=== PATIENT | female | born 1940 | race Hispanic/Latino ===

== ENCOUNTER 2017-04-16 13:17 | Observation (INO) | payer MEDICARE, OTHER ==
--- NOTE | 2017-04-16 13:34 | ED PDOC ---
Arrival/HPI - General Time Seen by Provider: 04/16/17 13:20 Historian: Patient - History of Present Illness Narrative History of Present Illness (Text): 04/16/17 13:25 A 76 year old female presents to the emergency department complaining of 3 day duration of intermittent chest discomfort. Discomfort is described as a pressure sensation and associated with chest palpitations. Patient notes pain is relieved with nitroglycerin. She denies any fever, chills, or other complaints at this time. Patient mentions she had a stress test 2 months ago, which was worse compared to her previous one. Time/Duration: Other (3 days) Symptom Onset: Sudden Symptom Course: Intermittent Quality: Other Activities at Onset: Rest Context: Home Past Medical History - Provider Review Nursing Documentation Reviewed: Yes - Infectious Disease Hx of Infectious Diseases: None - Tetanus Immunization Tetanus Immunization: Unknown - Cardiac Hx Cardiac Disorders: Yes Hx Hypertension: Yes - Pulmonary Hx Respiratory Disorders: Yes Hx Lung Cancer: Yes - Neurological Hx Neurological Disorder: No - HEENT Hx HEENT Disorder: Yes Hx Cataracts: Yes (b/l sx) Hx Glaucoma: (pt denies) - Renal Hx Renal Disorder: No - Endocrine/Metabolic Hx Endocrine Disorders: No - Hematological/Oncological Hx Blood Disorders: Yes Hx Cancer: Yes (non hodgkins lymphoma, spleen, L lung) Other/Comment: pt dx with ca spleen, spleen removed dx with non hodkins lymphoma 2009, also had lymphoma removed from left neck, pt pt had chemo and completed it in january 2012, pt dx with ca left lung 2014, to sx's to left lower lobe one in 2014 and one 06/21/2016 at [facility] - Integumentary Hx Dermatological Disorder: No - Musculoskeletal/Rheumatological Hx Falls: No - Gastrointestinal Hx Gastrointestinal Disorders: Yes (esophageal disorder) Hx Gastroesophageal Reflux: Yes - Genitourinary/Gynecological Hx Reproductive Disorders: Yes (hx hyst) - Psychiatric Hx Substance Use: No - Past Surgical History Past Surgical History: No Previous - Surgical History Hx Cardiac Catheterization: Yes Hx Coronary Stent: Yes (x2) Hx Orthopedic Surgery: Yes (right shoulder rotator cuff) Other/Comment: partial lobectomy left lung 2014 and june 2016 at [facility], spleen removed 2009 pt found to have non hodgkins lymphoma, also had sx to removed lymphoma from left neck, completed chemo january 2012, b/l carpal tunnel sx - Anesthesia Hx Anesthesia Reactions: No Hx Malignant Hyperthermia: No - Suicidal Assessment Feels Threatened In Home Enviroment: No Family/Social History - Physician Review Nursing Documentation Reviewed: Yes Family/Social History: Unknown Family HX Smoking Status: Former Smoker Hx Alcohol Use: No Hx Substance Use: No Hx Substance Use Treatment: No Allergies/Home Meds Allergies/Adverse Reactions: Allergies clopidogrel Allergy (Severe, Verified 09/05/16 02:34) RASH Home Medications: Home Meds Medication Instructions Recorded Confirmed Metoprolol Tartrate 25 mg PO BID 06/16/13 09/12/16 Aspirin [Aspirin Chewable] 81 mg PO BID 06/30/16 09/12/16 Docusate [Colace] 100 mg PO BID 06/30/16 09/12/16 Topiramate [Topiramate] 25 mg PO HS 06/30/16 09/04/16 Tramadol HCl [Tramadol HCl] 50 mg PO Q6 PRN 06/30/16 09/12/16 Zolpidem [Ambien] 10 mg PO HS PRN 06/30/16 09/04/16 Lansoprazole [Lansoprazole] 30 mg PO DAILY 08/29/16 09/04/16 Rosuvastatin Calcium [Crestor] 5 mg PO HS 08/29/16 09/04/16 Enoxaparin [Lovenox] 60 mg SQ BID 09/12/16 09/12/16 Physical Exam - Physical Exam Narrative Physical Exam (Text): - Review of Systems Constitutional: Normal. absent: Fatigue, Weight Change, Fevers Eyes: Normal ENT: Normal Respiratory: Normal absent: SOB, Cough, Sputum Cardiovascular: Chest pain. Chest palpitations. absent: Palpitations, Syncope Gastrointestinal: Normal absent: Abdominal pain, Diarrhea, Nausea, Vomiting Genitourinary: Normal. absent: Dysuria, Frequency, Hematuria Musculoskeletal: Normal. absent: Arthralgias, Back Pain, Neck Pain Skin: Normal Neurological: Normal absent: Focal Weakness Endocrine: Normal Hemo/Lymphatic: Normal Psychiatric: Normal - Physical exam Patient appears age appropriate, speaking full sentences without difficulty - Systems Exam Head: Present: Atraumatic, Normocephalic Pupils: Present: PERRL Extraocular Muscles: Present: EOMI Conjunctiva: Present: Normal Mouth: Present: Moist Mucous Membranes Neck: Present: Normal Range of Motion. No: MIDLINE TENDERNESS, Paraspinal Tenderness Respiratory/Chest: Present: Clear to Auscultation, Good Air Exchange. No: Respiratory Distress, Accessory Muscle Use, Tachypneic Cardiovascular: Present: Regular Rate and Rhythm, Normal S1, S2, Peripheral Pulses Present. No: Murmurs Abdomen: Present: Normal Bowel Sounds, No: Tenderness, Peritoneal Signs, Rebound, Guarding, Distention Back: Present: Normal Inspection. No: Midline Tenderness, Paraspinal Tenderness Upper Extremity: Present: Normal Inspection. No: Cyanosis, Edema Lower Extremity: Present: Normal Inspection. No: Edema Neurological: Present: GCS=15, Speech Normal, cranial nerves II through XII fully intact with no cerebellar abnormality, neuro-sensory fully intact. No focal neurological deficits. Skin: Present: Warm, Dry, Normal Color. No: Rashes Lymphatic: Present: OX3, NI, NC Psychiatric: Present: Alert, Oriented x 3, Normal Insight, Normal Concentration Vital Signs Reviewed: Yes Vital Signs Temp Pulse Pulse Resp BP BP Pulse Ox 04/16/17 16:01 59 L 18 140/86 99 04/16/17 14:21 58 L 18 148/65 98 04/16/17 13:37 59 L 152/62 H 04/16/17 13:34 98.4 F 59 L 18 152/62 H 97 Medical Decision Making ED Course and Treatment: 04/16/17 13:25 Impression: A 76 year old female with chest discomfort. Denies sob/celaya. Patient had a stress test 2 months ago, which was worse compared to her prior one. Physical exam reveals no acute findings. Differential Diagnosis include but are not limited to: ACS Plan: -- EKG -- Chest X-ray -- Labs -- Aspirin -- Reassess and disposition Progress Notes: EKG: Ordered, reviewed, and independently interpreted the EKG. Rate : 60 BPM Rhythm : NSR Interpretation : No ST-segment elevations, normal intervals. Interpreted by me. 04/16/17 14:[address] Mccarty, agrees with above plan notes pt had a pleuritic component to her cp. d-dimer ordered pt states she currently has no chest pain. 04/16/17 16:24 elias Mccarty, saw pt in the ER, agrees with admission to the hospital pt aware of and agrees with plan Chest xray interpreted by ED physician shows no pneumothorax, no cardiomegaly, no infiltrates - Lab Interpretations Lab Results: 04/16/17 13:45 04/16/17 13:45 Lab Results 04/16/17 13:45: Sodium 139, Potassium 4.3, Chloride 102, Carbon Dioxide 27, Anion Gap 14, BUN 18, Creatinine 0.9, Est GFR ( Amer) > 60, Est GFR (Non- Af Amer) > 60, Random Glucose 94, Calcium 9.4, Total Bilirubin 0.5, AST 26, ALT 35, Alkaline Phosphatase 77, Lactate Dehydrogenase 391, Total Creatine Kinase 38 , Troponin I < 0.01 D, NT-Pro-B Natriuret Pep 399, Total Protein 7.3, Albumin 4.4, Globulin 3.0, Albumin/Globulin Ratio 1.5 04/16/17 13:45: PT 15.2 H, INR 1.41 H, APTT 37.8 H, D-Dimer, Quantitative 0.19 04/16/17 13:45: WBC 7.8, RBC 4.63, Hgb 14.7, Hct 43.6, MCV 94.2, MCH 31.7, MCHC 33.7, RDW 13.9, Plt Count 305, MPV 10.7, Gran % 50.6, Lymph % (Auto) 34.6, [place] % (Auto) 9.0 H, Eos % (Auto) 5.2 H, Baso % (Auto) 0.6, Gran # 3.92, Lymph # 2.7 , [place] # 0.7 H, Eos # 0.4, Baso # 0.05 I have reviewed the lab results: Yes - RAD Interpretation Radiology Orders: 04/16/17 13:26 CHEST PORTABLE [RAD] Stat - Medication Orders Current Medication Orders: Discontinued Medications Aspirin (Aspirin Chewable) 324 mg PO STAT STA Stop: 04/16/17 13:27 Last Admin: 04/16/17 13:56 Dose: 324 mg Ketorolac Tromethamine (Toradol) 15 mg IVP STAT STA Stop: 04/16/17 15:26 Last Admin: 04/16/17 16:05 Dose: 15 mg Nitroglycerin (Nitrostat Sl Tab) 0.3 mg SL STAT STA Stop: 04/16/17 15:11 Last Admin: 04/16/17 15:33 Dose: 0.3 mg Ondansetron HCl (Zofran Inj) 4 mg IVP STAT STA Stop: 04/16/17 15:26 Last Admin: 04/16/17 16:05 Dose: 4 mg - Scribe Statement The provider has reviewed the documentation as recorded by the Cesar Kyle Provider Tundeibe Attestation: All medical record entries made by the Scribe were at my direction and personally dictated by me. I have reviewed the chart and agree that the record accurately reflects my personal performance of the history, physical exam, medical decision making, and the department course for this patient. I have also personally directed, reviewed, and agree with the discharge instructions and disposition. Disposition/Present on Arrival - Present on Arrival Any Indicators Present on Arrival: No History of DVT/PE: No History of Uncontrolled Diabetes: No Urinary Catheter: No History Surgical Site Infection Following: None - Disposition Have Diagnosis and Disposition been Completed?: Yes Diagnosis: Chest pain Disposition: HOSPITALIZED Disposition Time: 16:28 Patient Plan: Observation Condition: FAIR Discharge Instructions (ExitCare): Chest Pain (ED) Referrals: Marysol Mccarty MD [Primary Care Provider] - Follow up with primary
[2017-04-16 13:35] VITALS: BMI 30.7
[2017-04-16 13:57] LABS: ADD MANUAL DIFF? NO
[2017-04-16 14:03] LABS: BASO # 0.05 K/mm3 (0.0-2.0); BASO % 0.6 % (0.0-3.0); EOS # 0.4 (0.0-0.7); EOS % 5.2 % (1.5-5.0); GRAN # 3.92 (1.4-6.5); GRAN % 50.6 % (50.0-68.0); HEMATOCRIT 43.6 % (36.0-48.0); LYMPH # 2.7 (1.2-3.4); LYMPH % 34.6 % (22.0-35.0); MEAN CELL VOLUME 94.2 fL (80.0-105.0); MEAN CORPUSCULAR HEMOGLOBIN 31.7 pg (25.0-35.0); MEAN CORPUSCULAR HGB CONC 33.7 g/dl (31.0-37.0); MEAN PLATELET VOLUME 10.7 fl (7.0-11.0); MONO # 0.7 (0.1-0.6); PLATELET COUNT 305 10^3/uL (120.0-450.0); RED CELL DISTRIBUTION WIDTH 13.9 % (11.5-14.5); WHITE BLOOD COUNT 7.8 10^3/ul (4.5-11.0)
[2017-04-16 14:14] LABS: ALB/GLOB RATIO 1.5 (1.1-1.8); ALKALINE PHOSPHATASE 77 U/L (38-133); ALT/SGPT 35 U/L (7-56); AST/SGOT 26 U/L (15-39); BILIRUBIN,TOTAL 0.5 mg/dL (0.2-1.3); BLOOD UREA NITROGEN 18 mg/dL (7-21); CALCIUM 9.4 mg/dL (8.4-10.5); CARBON DIOXIDE 27 mmol/L (21-33); CHLORIDE 102 mmol/L (98-107); GFR AFRICAN-AMERICAN > 60; GLUCOSE,RANDOM 94 mg/dL (70-110); POTASSIUM 4.3 mmol/L (3.6-5.0); SODIUM 139 mmol/L (132-148); TOTAL PROTEIN 7.3 g/dL (5.8-8.3)
[2017-04-16 14:24] LABS: TROPONIN I < 0.01 ng/mL
--- NOTE | 2017-04-16 14:53 | RAD ---
HISTORY: Cough COMPARISON: 08/29/2016. FINDINGS: LUNGS: The lungs are hyperinflated and there is peribronchial thickening with chronic changes in both lungs. There is no lobar pneumonia. PLEURA: No significant pleural effusion identified, no pneumothorax apparent. CARDIOVASCULAR: Normal. OSSEOUS STRUCTURES: There is a screw in the right humeral head. VISUALIZED UPPER ABDOMEN: Normal. OTHER FINDINGS: None. IMPRESSION: No active pulmonary disease. COPD.
[2017-04-16 15:04] LABS: D DIMER 0.19 mg/L FEU (0-0.50); INR 1.41 (0.93-1.08); PARTIAL THROMBOPLASTIN TIME 37.8 Seconds (23.7-30.8)
--- NOTE | 2017-04-16 15:23 | CARD ---
APPROVED REPORT EKG Measurement Heart [id number] <Conclusion> Sinus bradycardia Small q waves 2,3,F.
--- NOTE | 2017-04-16 18:36 | HP ---
HISTORY OF PRESENT ILLNESS: A 76-year-old female presented today with the complaints of left-sided c hest pain. She states that the chest pain has been occurring off and on for several days, starting o n Sunday, during which time it was relieved with nitroglycerin, but however, was associated with cold , clammy sweats. She also states that there seemed to be an inspiratory component to the pain as wel l. She denied any fever, chills, nausea or vomiting. ALLERGIES: PLAVIX. HOME MEDICATIONS: Xarelto 20 mg daily, Ambien 10 mg at bedtime p.r.n., tramadol 50 mg q. 6 hours p.r .n., Crestor 5 mg daily, metoprolol 25 mg b.i.d., lansoprazole 30 mg daily and Colace 100 mg b.i.d. SOCIAL HISTORY: She is a nonsmoker, nondrinker, nondrug user. PAST MEDICAL HISTORY: 1. Recent abnormal stress test within the last several months as per the patient. 2. History of lung cancer with partial lobectomy surgeries in the last 2 years. 3. History of pulmonary embolus. 4. History of lumbar disk disease. 5. History of gastritis. 6. History of lymphoma. 7. History of splenectomy. 8. History of hyperlipidemia. PHYSICAL EXAMINATION: GENERAL: The patient was referred to [facility] for further evaluation. VITAL SIGNS: She has a temp of 98.4, her pulse is 59, her blood pressure is 148/65, respiratory rate is 18, oxygen saturation is reported at 98% on room air. NECK: Supple, no JVD. LUNGS: Clear. HEART: Has an S1, S2 rhythm. ABDOMEN: Soft with positive bowel sounds. EXTREMITIES: Show no evidence of edema or rash. No point tenderness to palpation of the chest wall. EXTREMITIES: Show no evidence of edema. NEUROLOGIC: She is alert and oriented x 3. LABORATORY DATA: Electrolytes are normal. Her BUN is 18 and creatinine is 0.9. LFTs are normal. F irst troponin is less than 0.01. PT is 15.2, INR 1.41. PTT is 3.78 and D-dimer is 0.19. CBC shows a WBC of 7.8, RBC 4.63, hemoglobin 14.7, hematocrit 43.6, platelet count 305. MEDICATIONS GIVEN: The patient received aspirin in the Emergency Room along with nitroglycerin and T oradol dose and Zofran. REPORTS: EKG is being read by the cost estimator as showing sinus mariusz with Q waves in leads III and III and aVF. The chest x-ray is read as no active disease. IMPRESSION: A 76-year-old female with: 1. Chest pain. 2. History of abnormal stress test. 3. History of coronary artery disease. One must rule out ischemic cardiac disease. 4. The patient with history of lung cancer status post surgical procedures on lungs x 2 with history of pulmonary embolus. 5. History of chronic degenerative cervical and lumbar disease. 6. History of gastritis. 7. History of foot fracture surgery remotely. PLAN: The patient has been advised that it would be beneficial for her to be evaluated by cardiology and be admitted into the hospital. This was discussed at length with the Emergency Room staff and t he patient herself. Requests have been made for consult to be had with cardiology and with pulmonary . She will be placed on a heart healthy diet with serial cardiac enzymes to be monitored on telemetry . Marysol Mccarty MD cc: [id number] TT: 04/16/2017 18:35:59 ln
[2017-04-16 19:33] LABS: TROPONIN I < 0.01 ng/mL
[2017-04-16 22:47] VITALS: RESP 20
[2017-04-17 03:30] LABS: TROPONIN I < 0.01 ng/mL
[2017-04-17 05:51] VITALS: O2SAT 100
[2017-04-17] MEDS ORDERED: Pantoprazole 40 mg EC Tab PO SCH (07:30)
--- NOTE | 2017-04-17 07:39 | CON ---
DATE: 04/17/2017 REASON FOR CONSULTATION: Chest pain. REFERRING PHYSICIAN: Dr. Mccarty The patient is a 76-year-old female with past medical history significant for pulmonary embolism (08/2016), history of lung cancer, history of multiple left lung surgeries, history of non-Hodgkin's lymphoma, who presents to [facility] with intermittent chest discomfort for the past 3 days. The patient describes the chest discomfort -- sometimes in the left chest, sometimes in the midsternal area. She does state that the chest discomfort is significantly decreased this morning. There is no history of shortness of breath at rest, dyspnea on exertion, cough, or sputum production. There is no history of coughing up of blood. Interesting to note, is that the patient is able to reproduce some of the pain with deep palpation in the midsternal area. There is no history of chest pain -- made worse with deep respirations. There is no history of temperatures, chills or infectious exposure. There is no history of night sweats, weight loss or appetite change prior to the above events. No history of leg or calf pains. No history of syncope or diaphoresis. No history of recent travel or trauma. REVIEW OF SYSTEMS: No history of nausea, vomiting or diarrhea. No acute urinary symptoms. No new neurological or musculoskeletal complaints. Rest is negative. ALLERGIES: CLOPIDOGREL. SOCIAL HISTORY: Negative for tobacco, negative for alcohol. FAMILY HISTORY: No inheritable diseases. HOME MEDICATIONS: Include Xarelto, Ambien, tramadol, Crestor, metoprolol, lansoprazole, Colace. PHYSICAL EXAMINATION: GENERAL: The patient appears comfortable this morning. She is not short of breath at rest. VITAL SIGNS: Temperature is 97.8, pulse 65, respirations 18, blood pressure 158 /84. Oxygen saturation on room air is 100%. HEENT: Normocephalic, atraumatic. No JVD. CARDIOVASCULAR: Positive S1, S2. No S3. LUNGS: Clear bilaterally. EXTREMITIES: Mild edema. No cyanosis, no clubbing. Calves are nontender to palpation. GASTROINTESTINAL: Abdomen is soft, nontender, nondistended. Bowel sounds are positive. SKIN: No acute rash. NEUROLOGIC: Limited at the present time. PERTINENT LABORATORY DATA: Chest x-ray was done yesterday and reviewed. There are no acute changes seen. CBC: White count 7.8, hemoglobin 14.7, hematocrit 43.6, platelets of 305. D-dimer -- negative -- 0.19. Complete metabolic profile -- including troponins x 3 -- are completely within normal limits. IMPRESSION: 1. Chest discomfort -- rule out musculoskeletal origin. 2. History of pulmonary embolism. 3. History of lung cancer. 4. History of non-Hodgkin's lymphoma. PLAN: The patient presents to [facility] with main complaint of intermittent chest discomfort for the past 3 days. She offers no other significant pulmonary symptoms. Again, interesting to note, the patient can reproduce the chest discomfort with deep palpation in the sternal area. I do question whether the chest discomfort is musculoskeletal in origin. Cardiology evaluation with Dr. Douglas has been ordered. I did review the chest x-ray as above. There is no active disease present. I have also reviewed the laboratory data. The laboratory data is unrevealing -- including a negative D- dimer. On physical exam, the patient's lungs are clear. Oxygen saturation on room air is 100%. The patient is currently on Xarelto for a previous pulmonary embolism. As above, the patient does feel much better this morning -- with a significant decrease in her chest discomfort. She is clinically improved. Additional pulmonary intervention will be based on the clinical status of the patient. I will discuss the above with Dr. Mccarty. Thank you very much for this pulmonary consultation. Dayday Hall MD cc: [phone] TT: 04/17/2017 07:39:00 Confirmation # [id number] Dictation # [id number] en MTDD
--- NOTE | 2017-04-17 09:08 | CON ---
DATE: 04/17/2017 INDICATIONS: Chest pain. This is a 76-year-old woman admitted with several days of chest pain. She came to the Emergency Room yesterday and was seen by Dr. Mccarty and the ER physician. She described a pinching type left upper chest discomfort which occurred at rest. There was some pleuritic component to her chest pain. There was no associated shortness of breath or diaphoresis. It was not exertional chest pain. It was not similar to chest pain that she had in relation to coronary artery disease and prior coronary intervention. She did have some relief from nitroglycerin over the course of the last several days. There was no orthopnea, PND, syncope, presyncope, lightheadedness, dizziness, vertigo, palpitation, edema, claudication, fever, rigor, cough, sputum production, hemoptysis, abdominal pain, nausea, vomiting, diarrhea, constipation, or melena. PAST MEDICAL HISTORY: Complex. She has known coronary artery disease and underwent coronary intervention remotely. More recently, she had a nuclear stress test in our office, which was apparently abnormal. She is not quite sure of the exact recommendations based on that stress test at this time. She has a history of pulmonary embolus in 08/2016. There is a history of lung cancer with resections. She is a former smoker. She has had a splenectomy, partial pancreatectomy, total abdominal hysterectomy with bilateral salpingo- oophorectomy and right shoulder surgery. She has a history of Hodgkin's lymphoma, osteoporosis, spinal stenosis, osteoarthritis, glaucoma and compression fractures. MEDICATIONS: At the time of admission include Xarelto, Ambien, tramadol, Crestor, metoprolol, lansoprazole, Colace. ALLERGIES: SHE NOTES AN ALLERGY TO PLAVIX. She is a former smoker. She does not drink alcohol. She lives at home. She is ambulatory. FAMILY HISTORY: Positive for atherosclerotic cardiovascular disease. REVIEW OF SYSTEMS: A 10-point is otherwise unremarkable except as noted above. PHYSICAL EXAMINATION: GENERAL: She is a well-developed, elderly woman, sitting on her bed in telemetry, in no acute distress. VITAL SIGNS: Unremarkable. She is in sinus rhythm. She is afebrile. Her blood pressure is 150/79, respirations 18-20, O2 sat 99% on room air. HEENT: Reveals no neck vein distention, thyromegaly, or carotid bruits. Mucous membranes moist. Conjunctivae pink. NECK: Supple. LUNG ALVA: Clear. HEART: Revealed normal first and second heart sounds. No murmur, gallop, rub or click. ABDOMEN: Soft. Bowel sounds were present. No mass, organomegaly, tenderness, rebound, or guarding. No CVA tenderness. No palpable abdominal aortic aneurysm. EXTREMITIES: Revealed no cyanosis, clubbing, or edema. NEUROLOGIC: She is awake, alert and oriented. PSYCHIATRIC: Normal as to mood and affect. SKIN: Warm and dry. No rash or cellulitis. LABORATORY AND IMAGING: A chest x-ray is a portable study. It reveals no active pulmonary disease and COPD. The EKG demonstrates regular sinus rhythm at 59 beats per minute, small inferior Q-waves, no change from prior EKG. White count unremarkable. PT 15.2, INR 1.41, PTT 37.8. D-dimer 0.19. Electrolytes, BUN, creatinine, blood sugar, LFTs all unremarkable. Three cardiac enzymes are negative. BNP 399. IMPRESSION: The patient is a 76-year-old woman with known coronary artery disease, a former smoker with a history of coronary intervention remotely, a history of pulmonary embolus in 08/2016, who was admitted with atypical chest pains at rest predominantly with a pleuritic component, but sometimes responding to sublingual nitroglycerin over the course of the last few days. At this time, she is admitted to telemetry. There is no evidence of acute myocardial infarction by serial enzymes. I will repeat her EKG this morning. I will order an echocardiogram. She is having a pulmonary evaluation. I will discuss her most recent stress test, which was apparently unremarkable, with Dr. Garcia, who follows with her in the office. If chest pain continues and no other cause is defined and her stress test is ischemic, consideration will be given to cardiac catheterization to define her current coronary anatomy, although her symptoms are atypical. In the meantime, I will order an echocardiogram. She can be out of bed. We will continue her medications including aspirin, Lipitor, metoprolol, Protonix, Xarelto. She is having a pulmonary consultation. I will follow along with you. I will make additional recommendations based on her clinical course. Alejandro Douglas MD cc: [phone] TT: 04/17/2017 09:07:16 Confirmation # [id number] Dictation # [id number] en MTDD
[2017-04-17] MEDS ORDERED: POLYETHYLENE GLYCOL 3350 17 GM/Dose PACKET PO SCH (10:00)
--- NOTE | 2017-04-17 10:19 | CARD ---
APPROVED REPORT EKG Measurement Heart [id number] <Conclusion> Normal sinus rhythm Small q wves 2,3,F No change
[2017-04-17 12:40] VITALS: BP 165/79; PULSE 59; TEMP 98.1
[2017-04-17 13:10] LABS: TROPONIN I < 0.01 ng/mL
--- NOTE | 2017-04-17 16:27 | CARD ---
APPROVED REPORT EXAM: Two-dimensional and M-mode echocardiogram with Doppler and color Doppler. INDICATION Chest Pain 2D DIMENSIONS Left Atrium (2D)3.4 (1.6-4.0cm)IVSd1.2 (0.7-1.1cm) LVDd3.7 (3.9-5.9cm)PWd1.1 (0.7-1.1cm) LVDs2.5 (2.5-4.0cm)FS (%) 32.6 % LVEF (%)61.9 (>50%) M-Mode DIMENSIONS Aortic Root3.10 (2.2-3.7cm)Aortic Cusp Exc.1.50 (1.5-2.0cm) Aortic Valve AoV Peak Xwllneut417.0cm/Son Peak GR.7mmHg Mitral Valve MV E Whotxqvl98.2cm/sMV A Zqkdmyqv928.0cm/sE/A ratio0.6 TDI E/Lateral E'0.0E/Medial E'0.0 Tricuspid Valve TR Peak Nysexrbh558ei/sRAP [id number] Peak Gr.22mmHg [id number] LEFT VENTRICLE The left ventricle is normal size. There is mild concentric left ventricular hypertrophy. The left ventricular function is normal. The left ventricular ejection fraction is within the normal range. There is normal LV segmental wall motion. RIGHT VENTRICLE The right ventricle is normal size. The right ventricular systolic function is normal. ATRIA The left atrium size is normal. The right atrium size is normal. The interatrial septum is intact with no evidence for an atrial septal defect. AORTIC VALVE The aortic valve is normal in structure. No aortic regurgitation is present. There is no aortic valvular stenosis. MITRAL VALVE The mitral valve is normal in structure. Mitral regurgitation is mild. TRICUSPID VALVE The tricuspid valve is normal in structure. There is mild tricuspid regurgitation. PULMONIC VALVE The pulmonary valve is normal in structure. GREAT VESSELS The aortic root is normal in size. The IVC is normal in size and collapses >50% with inspiration. PERICARDIAL EFFUSION There is no pleural effusion. There is no pericardial effusion. <Conclusion> Normal chamber size. Normal LV systolic function. Mild concentric LVH. Midl MR and TR.
== END 2017-04-17 14:56 | disposition home or self-care (01) ==
LOC: ED 13:17 → ERH 16:28 → 2RNO 19:05
PROVIDERS: ADMIT Internal Medicine; ATTEND Internal Medicine
DX: R07.9 Chest pain, unspecified (principal); I25.10 Atherosclerotic heart disease of native coronary artery without angina pectoris; Z85.118 Personal history of other malignant neoplasm of bronchus and lung; Z86.711 Personal history of pulmonary embolism; Z79.01 Long term (current) use of anticoagulants; Z85.72 Personal history of non-Hodgkin lymphomas; M81.0 Age-related osteoporosis without current pathological fracture; H40.9 Unspecified glaucoma; M48.00 Spinal stenosis, site unspecified; M19.90 Unspecified osteoarthritis, unspecified site; E78.5 Hyperlipidemia, unspecified; K29.70 Gastritis, unspecified, without bleeding; Z95.5 Presence of coronary angioplasty implant and graft; Z90.81 Acquired absence of spleen; Z87.891 Personal history of nicotine dependence; Z90.710 Acquired absence of both cervix and uterus; Z82.49 Family history of ischemic heart disease and other diseases of the circulatory system
CPT/HCPCS: 36415; 71010; 80053; 82550; 83615; 83880; 84484; 85025; 85378; 85610; 85730; 93005; 93306; 96374; 96375; 99283; G0378; J1885; J2405

== ENCOUNTER 2017-11-23 15:11 | Emergency (ER) | payer MEDICARE, OTHER ==
--- NOTE | 2017-11-23 15:33 | ED PDOC ---
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 facial swelling and dental pain started last night with no fall or trauma. Aching pain, associated with the rt. sided facial swelling, no fever or chills, no difficulty swallowing , no drooling, no night sweat, no rash, no difficulty turning the neck, no other medical or psychological complaints. Past Medical History - Provider Review Nursing Documentation Reviewed: Yes - Infectious Disease Hx of Infectious Diseases: None - Tetanus Immunization Tetanus Immunization: Unknown - Cardiac Hx Cardiac Disorders: Yes Hx Hypertension: Yes - Pulmonary Hx Respiratory Disorders: Yes Hx Chronic Obstructive Pulmonary Disease (COPD): Yes Hx Pneumonia: Yes - Neurological Hx Neurological Disorder: Yes Hx Migraine: Yes Hx Transient Ischemic Attacks (TIA): Yes - HEENT Hx HEENT Disorder: Yes Hx Cataracts: Yes (b/l sx) Hx Glaucoma: Yes - Renal Hx Renal Disorder: No Other/Comment: polycystic kidney disease - Endocrine/Metabolic Hx Endocrine Disorders: No - Hematological/Oncological Hx Blood Disorders: Yes Hx Cancer: Yes (non hodgkins lymphoma, spleen, L lung) Hx Chemotherapy: Yes Other/Comment: PE, pt dx with ca spleen, spleen removed dx with non hodkins lymphoma, pt dx with ca left lung, two sx's to left lower lobe - Integumentary Hx Dermatological Disorder: No - Musculoskeletal/Rheumatological Hx Musculoskeletal Disorders: Yes Hx Arthritis: Yes Hx Back Pain: Yes Hx Falls: No Hx Spinal Stenosis: Yes Hx Unsteady Gait: Yes - Gastrointestinal Hx Gastrointestinal Disorders: Yes Hx Gastroesophageal Reflux: Yes Other/Comment: "esophageal problems," GI bleed - Genitourinary/Gynecological Hx Genitourinary Disorders: Yes Hx Urinary Tract Infection: Yes - Psychiatric Hx Psychophysiologic Disorder: Yes Hx Anxiety: Yes Hx Substance Use: No - Past Surgical History Past Surgical History: No Previous - Surgical History Hx Cardiac Catheterization: Yes Hx Coronary Stent: Yes (x2) Hx Hysterectomy: Yes Hx Orthopedic Surgery: Yes (right shoulder rotator cuff, R ankle) Hx Splenectomy: Yes Other/Comment: partial lobectomy left lung - Anesthesia Hx Anesthesia Reactions: No Hx Malignant Hyperthermia: No - Suicidal Assessment Feels Threatened In Home Enviroment: No Family/Social History - Physician Review Nursing Documentation Reviewed: Yes Family/Social History: Unknown Family HX Smoking Status: Never Smoked Hx Alcohol Use: No Hx Substance Use: No Hx Substance Use Treatment: No Allergies/Home Meds Allergies/Adverse Reactions: Allergies clopidogrel Allergy (Severe, Verified 09/05/16 02:34) RASH Home Medications: Home Meds Medication Instructions Recorded Confirmed Metoprolol Tartrate 25 mg PO BID 06/16/13 04/16/17 Docusate [Colace] 100 mg PO BID 06/30/16 04/16/17 Tramadol HCl 50 mg PO Q6 PRN 06/30/16 04/16/17 Zolpidem [Ambien] 10 mg PO HS PRN 06/30/16 04/16/17 Lansoprazole 30 mg PO DAILY 08/29/16 04/16/17 Rosuvastatin Calcium [Crestor] 5 mg PO HS 08/29/16 04/16/17 Rivaroxaban [Xarelto] 20 mg PO DAILY 04/16/17 04/16/17 Review of Systems - Review of Systems Constitutional: absent: Fatigue, Fevers Eyes: absent: Vision Changes ENT: Other (dental pain and facial swelling). absent: Hearing Changes Respiratory: absent: SOB, Cough Cardiovascular: absent: Chest Pain Gastrointestinal: absent: Abdominal Pain, Diarrhea, Nausea, Vomiting Musculoskeletal: absent: Arthralgias Neurological: absent: Headache, Dizziness Psychiatric: absent: Anxiety, Depression Physical Exam Vital Signs Temp Pulse Resp BP Pulse Ox 11/23/17 17:07 79 18 148/79 99 11/23/17 15:43 98.0 F 86 18 153/87 H 99 Appearance: Positive for: Well-Appearing, Non-Toxic, Comfortable Pain Distress: Moderate - Systems Exam Head: Present: Atraumatic, Normocephalic Pupils: Present: PERRL Extroacular Muscles: Present: EOMI Conjunctiva: Present: Normal Ears: Present: NORMAL TM, Normal Canal. No: Erythema Mouth: Present: Moist Mucous Membranes, Normal Lips, Normal Tounge, Other ( visible multiple dental caries noted on the rt. upper and lower molar region, no gingivitis or gingival abscess, there is no facial cellulitis or erythematous. ). No: Drooling Neck: Present: Normal Range of Motion, Lymphadenopathy (rt. anterior cervical lymphenapathy), Trachea Midline. No: Meningeal Signs, MIDLINE TENDERNESS, Paraspinal Tenderness Respiratory/Chest: Present: Clear to Auscultation, Good Air Exchange. No: Respiratory Distress, Accessory Muscle Use, Wheezes, Decreased Breath Sounds, Tender to Palpation Cardiovascular: Present: Regular Rate and Rhythm, Normal S1, S2. No: Murmurs Abdomen: Present: Normal Bowel Sounds. No: Tenderness, Distention, Peritoneal Signs Back: Present: Normal Inspection Upper Extremity: Present: Normal Inspection. No: Cyanosis, Edema Lower Extremity: Present: Normal Inspection. No: Edema Neurological: Present: GCS=15, Speech Normal, Motor Func Grossly Intact, Gait Normal, Memory Normal Skin: Present: Warm, Dry, Normal Color. No: Rashes Psychiatric: Present: Alert, Oriented x 3, Normal Insight, Normal Concentration Medical Decision Making ED Course and Treatment: 11/23/17 15:37 -labs -CT facial -IV clindamycin/morphine/zofran -observe and reassess 11/23/17 19:02 -Labs are non-significant except wbc 11.9, afebrile, no facial cellulitis or erythematous. -CT facial show Findings consistent with localized cellulitis and possibly small fluid/abscess collection adjacent to the mandible as the detailed above. . Findings could represent dental origin infection and therefore dental consultation recommended. -I discussed the labs/radiology result with Dr. Mccarty and Dr. Galarza, agreed to be discharged home with outpatient follow up as she has dentist appointment tomorrow 11:15am plus Dr. Mccarty will see her tomorrow. -Pt. request pain med last dose before discharge home. I checked the [facility] report and she has multiple controlled substances, unable to prescribe her, discussed with her. -Discharge home with clindamycin, oral visious lidocaine to swish and spit, tylenol, cold compress, follow up with your own pmd and dentist tomorrow ( dentist 11:15am and Dr. Mccarty after seeing the dentist), return to the ER for any new or worsening signs or symptoms. - Lab Interpretations Lab Results: 11/23/17 16:26 11/23/17 16:26 Lab Results 11/23/17 16:26: WBC 11.9 H, RBC 4.34, Hgb 13.7, Hct 41.2, MCV 94.9, MCH 31.6, MCHC 33.3, RDW 14.8 H, Plt Count 303, MPV 11.5 H, Gran % 48.2 L, Lymph % (Auto) 38.6 H, [place] % (Auto) 10.5 H, Eos % (Auto) 2.4, Baso % (Auto) 0.3, Gran # 5.74, Lymph # 4.6 H, [place] # 1.3 H, Eos # 0.3, Baso # 0.03 11/23/17 16:26: Sodium 139, Potassium 4.7, Chloride 103, Carbon Dioxide 27, Anion Gap 14, BUN 21, Creatinine 0.9, Est GFR ( Amer) > 60, Est GFR (Non- Af Amer) > 60, Random Glucose 99, Calcium 9.5, Magnesium 2.0, Total Bilirubin 0.6, AST 20, ALT 11, Alkaline Phosphatase 80, Total Protein 6.8, Albumin 4.3, Globulin 2.5, Albumin/Globulin Ratio 1.7 I have reviewed the lab results: Yes - RAD Interpretation Radiology Orders: 11/23/17 15:37 MAXILLOFACIAL W/CONTRAST [CT] Stat PROCEDURE: CT scan maxillofacial skeleton dated 11/23/2017 HISTORY: Right-sided facial swelling with dental pain COMPARISON: Comparison made with CT scan neck dated 06/19/2013. Comparison also made with CT scan of the brain dated 08/15/2013. TECHNIQUE: Contiguous helical/transaxial CT images of the maxillofacial bones were obtained following administration of IV contrast. Coronal and sagittal reformats were generated. Intravenous contrast Dose: 100 cc Omnipaque 350 Radiation dose: Total exam DLP = 801.45 mGy-cm. This CT exam was performed using one or more of the following dose reduction techniques: Automated exposure control, adjustment of the mA and/or kV according to patient size, and/or use of iterative reconstruction technique. Examination is somewhat limited due to crossing streak and beam hardening artifact arising from dental amalgam. FINDINGS: The current study reveals infiltration and induration changes within involving the buccal surface soft tissues - gumline adjacent to the body of the mandible extending superiorly into buccal surface tissues adjacent to the maxilla. . . There may be a small (approximately 6.5 x 3 mm) collection -abscess adjacent to the posterior body of the mandible best seen on axial image number [id number] 68. There is a 2nd possible tiny fluid collection slightly more anterior and inferiorly located that (approximately 5 0.4 x 2 mm) seen on axial image number 60 evaluation is somewhat limited due to the aforementioned streak and beam hardening artifact. The findings could be a dental origin abscess. Recommend dental consultation. NASAL BONES: Unremarkable. ORBITS: Changes of bilateral cataract surgery. PARANASAL SINUSES/ MASTOIDS: Mild linear and polypoid like mucosal thickening right maxillary antrum of. Additionally, there is minor mucosal thickening within the ethmoid air complex extending slightly superiorly into the inferior margin of the frontal sinus. MAXILLA: As above MANDIBLE/ TEMPOROMANDIBULAR JOINTS: Intact. SKULL BASE: Unremarkable. TEMPORAL BONES: Partial opacification of the inferior margin of the left mastoid air complex. . Additionally, there also appears to be opacification of a few inferior right mastoid air cells. OTHER FINDINGS: None. IMPRESSION: Findings consistent with localized cellulitis and possibly small fluid/abscess collection adjacent to the mandible as the detailed above. . Findings could represent dental origin infection and therefore dental consultation recommended. Salvage Winder: Radiologist - Medication Orders Current Medication Orders: Sodium Chloride (Sodium Chloride 0.9%) 1,000 mls @ 100 mls/hr IV .Q10H HÉCTOR Last Admin: 11/23/17 15:50 Dose: 100 mls/hr eMAR Start Stop Document 11/23/17 15:50 RD (Rec: 11/23/17 16:51 RD [facility] [id number]) Intravenous Solution Start Date 11/23/17 Start Time 15:50 Oxycodone/Acetaminophen (Percocet 5/325 Mg Tab) 1 tab PO STAT STA Stop: 11/23/17 19:01 Discontinued Medications Clindamycin Phosphate 900 mg/ (Sodium Chloride) 106 mls @ 106 mls/hr IVPB STAT STA PRN Reason: Protocol Stop: 11/23/17 16:37 Last Admin: 11/23/17 17:25 Dose: 106 mls/hr eMAR Start Stop Document 11/23/17 17:25 RD (Rec: 11/23/17 17:25 RD [facility] [id number]) Intravenous Solution Start Date 11/23/17 Start Time 17:25 End Date 11/23/17 End time 17:55 Total Infusion Time 30 Morphine Sulfate (Morphine) 2 mg IVP STAT STA Stop: 11/23/17 15:39 Last Admin: 11/23/17 15:55 Dose: 2 mg [facility] Pain Assessment Document 11/23/17 15:55 RD (Rec: 11/23/17 16:51 RD [place] [id number]) Pain Reassessment Is this a pain reassessment? No Sleep Is patient sleeping during reassessment? No Presence of Pain Presence of Pain Yes IVP Administration Document 11/23/17 15:55 RD (Rec: 11/23/17 16:51 RD [place] [id number]) Charges for Administration # of IVP Administrations 1 Re-Assess: [facility] Pain Assessment Document 11/23/17 16:55 RD (Rec: 11/23/17 17:26 RD [place] [id number]) Pain Reassessment Is this a pain reassessment? Yes Sleep Is patient sleeping during reassessment? No Presence of Pain Presence of Pain No Ondansetron HCl (Zofran Inj) 4 mg IVP STAT STA Stop: 11/23/17 15:39 Last Admin: 11/23/17 15:54 Dose: 4 mg IVP Administration Document 11/23/17 15:54 RD (Rec: 11/23/17 16:51 RD [place] [id number]) Charges for Administration # of IVP Administrations 1 - PA / SHIP SURVEYOR / Resident Statement MD/DO has reviewed & agrees with the documentation as recorded. Disposition/Present on Arrival - Present on Arrival Any Indicators Present on Arrival: No History of DVT/PE: No History of Uncontrolled Diabetes: No Urinary Catheter: No History of Decub. Ulcer: No History Surgical Site Infection Following: None - Disposition Have Diagnosis and Disposition been Completed?: Yes Diagnosis: Pain, dental, Facial swelling Disposition: HOME/ ROUTINE Disposition Time: 19:07 Patient Plan: Discharge Condition: IMPROVED Additional Instructions: -Discharge home with clindamycin, oral visious lidocaine to swish and spit, tylenol, cold compress, follow up with your own pmd and dentist tomorrow ( dentist 11:15am and Dr. Mccarty after seeing the dentist), return to the ER for any new or worsening signs or symptoms. Prescriptions: Acetaminophen [Tylenol 325mg tab] 2 tab PO QID PRN #35 tab PRN Reason: Other Clindamycin [Cleocin] 300 mg PO QID #40 cap Lidocaine 2% Viscous 10 ml MM TID PRN #250 ml PRN Reason: Other Referrals: Marysol Mccarty MD [Primary Care Provider] - Follow up with primary Forms: WORK NOTE
[2017-11-23 15:35] VITALS: BMI 31.1
[2017-11-23] MEDS ORDERED: Morphine 2 mg/ml ISec IVP STA (15:38)
[2017-11-23 15:43] VITALS: RESP 18; TEMP 98; O2SAT 99
[2017-11-23] MEDS ORDERED: Sodium Chloride 0.9% 1,000 ML IV SCH (15:45)
[2017-11-23 16:31] LABS: BASO # 0.03 K/mm3 (0.0-2.0); BASO % 0.3 % (0.0-3.0); EOS # 0.3 (0.0-0.7); EOS % 2.4 % (1.5-5.0); GRAN # 5.74 (1.4-6.5); GRAN % 48.2 % (50.0-68.0); HEMOGLOBIN 13.7 g/dL (12.0-16.0); LYMPH # 4.6 (1.2-3.4); LYMPH % 38.6 % (22.0-35.0); MEAN CELL VOLUME 94.9 fl (80.0-105.0); MEAN CORPUSCULAR HEMOGLOBIN 31.6 pg (25.0-35.0); MEAN CORPUSCULAR HGB CONC 33.3 g/dl (31.0-37.0); MEAN PLATELET VOLUME 11.5 fl (7.0-11.0); MONO # 1.3 (0.1-0.6); MONO % 10.5 % (1.0-6.0); RBC 4.34 10^6/uL (3.5-6.1); RED CELL DISTRIBUTION WIDTH 14.8 % (11.5-14.5); WHITE BLOOD COUNT 11.9 10^3/ul (4.5-11.0)
[2017-11-23 16:58] LABS: ALB/GLOB RATIO 1.7 (1.1-1.8); ALBUMIN 4.3 g/dL (3.0-4.8); ALT/SGPT 11 U/L (7-56); AST/SGOT 20 U/L (14-36); BLOOD UREA NITROGEN 21 mg/dL (7-21); CALCIUM 9.5 mg/dL (8.4-10.5); GFR AFRICAN-AMERICAN > 60; GFR NON-AFRICAN AMERICAN > 60
[2017-11-23 17:07] VITALS: BP 148/79; PULSE 79
[2017-11-23] MEDS ORDERED: Iohexol 350 MG/100 ML VIAL ONE (17:51)
--- NOTE | 2017-11-23 18:38 | CT ---
PROCEDURE: CT scan maxillofacial skeleton dated 11/23/2017 HISTORY: Right-sided facial swelling with dental pain COMPARISON: Comparison made with CT scan neck dated 06/19/2013. Comparison also made with CT scan of the brain dated 08/15/2013. TECHNIQUE: Contiguous helical/transaxial CT images of the maxillofacial bones were obtained following administration of IV contrast. Coronal and sagittal reformats were generated. Intravenous contrast Dose: 100 cc Omnipaque 350 Radiation dose: Total exam DLP = 801.45 mGy-cm. This CT exam was performed using one or more of the following dose reduction techniques: Automated exposure control, adjustment of the mA and/or kV according to patient size, and/or use of iterative reconstruction technique. Examination is somewhat limited due to crossing streak and beam hardening artifact arising from dental amalgam. FINDINGS: The current study reveals infiltration and induration changes within involving the buccal surface soft tissues - gumline adjacent to the body of the mandible extending superiorly into buccal surface tissues adjacent to the maxilla. . . There may be a small (approximately 6.5 x 3 mm) collection -abscess adjacent to the posterior body of the mandible best seen on axial image number [id number] 68. There is a 2nd possible tiny fluid collection slightly more anterior and inferiorly located that (approximately 5 0.4 x 2 mm) seen on axial image number 60 evaluation is somewhat limited due to the aforementioned streak and beam hardening artifact. The findings could be a dental origin abscess. Recommend dental consultation. NASAL BONES: Unremarkable. ORBITS: Changes of bilateral cataract surgery. PARANASAL SINUSES/ MASTOIDS: Mild linear and polypoid like mucosal thickening right maxillary antrum of. Additionally, there is minor mucosal thickening within the ethmoid air complex extending slightly superiorly into the inferior margin of the frontal sinus. MAXILLA: As above MANDIBLE/ TEMPOROMANDIBULAR JOINTS: Intact. SKULL BASE: Unremarkable. TEMPORAL BONES: Partial opacification of the inferior margin of the left mastoid air complex. . Additionally, there also appears to be opacification of a few inferior right mastoid air cells. OTHER FINDINGS: None. IMPRESSION: Findings consistent with localized cellulitis and possibly small fluid/abscess collection adjacent to the mandible as the detailed above. . Findings could represent dental origin infection and therefore dental consultation recommended.
[2017-11-23] MEDS ORDERED: Oxycodone/Acetaminophen 5/325 mg Tab PO STA (19:00)
== END 2017-11-23 19:24 | disposition home or self-care (01) ==
LOC: ED 15:11
DX: K08.89 Other specified disorders of teeth and supporting structures (principal); I10 Essential (primary) hypertension; Z85.72 Personal history of non-Hodgkin lymphomas
CPT/HCPCS: 70488; 80053; 83735; 85025; 96365; 96375; 99283; J2270; J2405; J7040; Q9967

== ENCOUNTER 2017-12-27 13:21 | Emergency (ER) | payer MEDICARE, OTHER ==
[2017-12-27 13:22] VITALS: BMI 31.1
[2017-12-27] MEDS ORDERED: Oxycodone/Acetaminophen 5/325 mg Tab PO STA ×2 (14:19→18:18)
[2017-12-27 15:06] VITALS: RESP 18; TEMP 98.2
--- NOTE | 2017-12-27 17:31 | US ---
HISTORY: Leg pain and swelling. Evaluate for DVT PHYSICIAN(S): Ike Schmidt MD. TECHNIQUE: Duplex sonography and color-flow Doppler with graded compression were used to evaluate the deep venous systems of both lower extremities. FINDINGS: The visualized deep venous systems of both lower extremities are sonographically normal and compressible. Normal wave forms and augmentation are seen. There is no sonographic evidence for deep venous thrombosis in the visualized segments of both lower extremities. IMPRESSION: No sonographic evidence for deep venous thrombosis in the visualized segments of both lower extremities.
[2017-12-27 17:41] VITALS: PULSE 68
[2017-12-27 17:48] VITALS: BP 136/75
--- NOTE | 2017-12-27 17:53 | ED PDOC ---
Arrival/HPI - General Chief Complaint: Lower Extremity Problem/Injury Time Seen by Provider: 12/27/17 14:18 Historian: Patient - History of Present Illness Narrative History of Present Illness (Text): 12/27/17 17:50 77yo female with PMhx of nonhogkins's lymphoma, nonsmall cell lung CA, hypertension, DVT, present with complaint of right ankle pain that radiates up to her upper leg x days. She reports sharp pain with ambulation. States she took old Percocet at home yesterday without relieve. she denies calf pain, SOB, diaphoresis, trauma, nausea, vomiting. She reports old right ankle fracture and ORIF. She is currently on anticoagulant Past Medical History - Provider Review Nursing Documentation Reviewed: Yes - Infectious Disease Hx of Infectious Diseases: None - Tetanus Immunization Tetanus Immunization: Unknown - Cardiac Hx Cardiac Disorders: Yes Hx Hypertension: Yes - Pulmonary Hx Respiratory Disorders: Yes Hx Chronic Obstructive Pulmonary Disease (COPD): Yes Hx Pneumonia: Yes - Neurological Hx Neurological Disorder: Yes Hx Migraine: Yes Hx Transient Ischemic Attacks (TIA): Yes - HEENT Hx HEENT Disorder: Yes Hx Cataracts: Yes (b/l sx) Hx Glaucoma: Yes - Renal Hx Renal Disorder: No Other/Comment: polycystic kidney disease - Endocrine/Metabolic Hx Endocrine Disorders: No - Hematological/Oncological Hx Blood Disorders: Yes Hx Cancer: Yes (non hodgkins lymphoma, spleen, L lung) Hx Chemotherapy: Yes Other/Comment: PE, pt dx with ca spleen, spleen removed dx with non hodkins lymphoma, pt dx with ca left lung, two sx's to left lower lobe - Integumentary Hx Dermatological Disorder: No - Musculoskeletal/Rheumatological Hx Musculoskeletal Disorders: Yes Hx Arthritis: Yes Hx Back Pain: Yes Hx Falls: No Hx Spinal Stenosis: Yes Hx Unsteady Gait: Yes - Gastrointestinal Hx Gastrointestinal Disorders: Yes Hx Gastroesophageal Reflux: Yes Other/Comment: "esophageal problems," GI bleed - Genitourinary/Gynecological Hx Genitourinary Disorders: Yes Hx Urinary Tract Infection: Yes - Psychiatric Hx Psychophysiologic Disorder: Yes Hx Anxiety: Yes Hx Substance Use: No - Past Surgical History Past Surgical History: No Previous - Surgical History Hx Cardiac Catheterization: Yes Hx Coronary Stent: Yes (x2) Hx Hysterectomy: Yes Hx Orthopedic Surgery: Yes (right shoulder rotator cuff, R ankle) Hx Splenectomy: Yes Other/Comment: partial lobectomy left lung - Anesthesia Hx Anesthesia Reactions: No Hx Malignant Hyperthermia: No - Suicidal Assessment Feels Threatened In Home Enviroment: No Family/Social History - Physician Review Nursing Documentation Reviewed: Yes Family/Social History: Unknown Family HX Smoking Status: Never Smoked Hx Alcohol Use: No Hx Substance Use: No Hx Substance Use Treatment: No Allergies/Home Meds Allergies/Adverse Reactions: Allergies clopidogrel Allergy (Severe, Verified 09/05/16 02:34) RASH Home Medications: Home Meds Medication Instructions Recorded Confirmed Metoprolol Tartrate 25 mg PO BID 06/16/13 12/27/17 Docusate [Colace] 100 mg PO BID 06/30/16 12/27/17 Tramadol HCl 50 mg PO Q6 PRN 06/30/16 12/27/17 Zolpidem [Ambien] 10 mg PO HS PRN 06/30/16 04/16/17 Lansoprazole 30 mg PO DAILY 08/29/16 04/16/17 Rosuvastatin Calcium [Crestor] 5 mg PO HS 08/29/16 12/27/17 Rivaroxaban [Xarelto] 20 mg PO DAILY 04/16/17 12/27/17 Review of Systems - Physician Review All systems were reviewed & negative as marked: Yes - Review of Systems Constitutional: Normal Eyes: Normal ENT: Normal Respiratory: Normal Cardiovascular: Normal Gastrointestinal: Normal Genitourinary Female: Normal Musculoskeletal: Arthralgias (Right ankle pain) Skin: Normal Neurological: Normal Endocrine: Normal Hemo/Lymphatic: Normal Psychiatric: Normal Physical Exam Vital Signs Reviewed: Yes Vital Signs Temp Pulse Resp BP Pulse Ox 12/27/17 17:41 68 18 136/75 98 12/27/17 15:06 98.2 F 71 18 132/70 98 Temperature: Afebrile Blood Pressure: Normal Pulse: Regular Respiratory Rate: Normal Appearance: Positive for: Well-Appearing, Non-Toxic, Comfortable Pain Distress: None Mental Status: Positive for: Alert and Oriented X 3 - Systems Exam Head: Present: Atraumatic, Normocephalic Pupils: Present: PERRL Extroacular Muscles: Present: EOMI Conjunctiva: Present: Normal Mouth: Present: Moist Mucous Membranes Neck: Present: Normal Range of Motion Respiratory/Chest: Present: Clear to Auscultation, Good Air Exchange. No: Respiratory Distress, Accessory Muscle Use Cardiovascular: Present: Regular Rate and Rhythm, Normal S1, S2. No: Murmurs Abdomen: Present: Normal Bowel Sounds. No: Tenderness, Distention, Peritoneal Signs Back: Present: Normal Inspection Upper Extremity: Present: Normal Inspection. No: Cyanosis, Edema Lower Extremity: Present: NORMAL PULSES, Normal ROM, Neurovascularly Intact, Other (Old healed surgical scar noted on the right ankle). No: Edema, CALF TENDERNESS, Tenderness, Swelling, Erythema, Temperature Abnormalties Neurological: Present: GCS=15, CN II-XII Intact, Speech Normal Skin: Present: Warm, Dry, Normal Color. No: Rashes Psychiatric: Present: Alert, Oriented x 3, Normal Insight, Normal Concentration Medical Decision Making ED Course and Treatment: 12/27/17 17:56 B/L Doppler US - Negative for DVT b/l Right ankle xray - No acute fracture noted Result was DW the pt. She was offered admission, hence her complain of pain with ambulation. Patient however declined admission. She ambulates with a cane baseline and states she also have a walker at home. States she will use it at home and f/u with her PMD Case was DW Dr. Mccarty. He states patient should see him tomorrow. Pt was advised to see him tomorrow. - RAD Interpretation Radiology Orders: 12/27/17 14:18 ANKLE RIGHT 3 VIEWS ROUTINE [RAD] Stat 12/27/17 14:19 DUPLEX LOWER EXTRM VEIN BILAT [US] Stat - Medication Orders Current Medication Orders: Discontinued Medications Oxycodone/Acetaminophen (Percocet 5/325 Mg Tab) 1 tab PO STAT STA Stop: 12/27/17 14:20 Last Admin: 12/27/17 14:39 Dose: 1 tab [facility] Pain Assessment Document 12/27/17 14:39 MR (Rec: 12/27/17 14:39 MR [id number]) Pain Reassessment Is this a pain reassessment? Yes Sleep Is patient sleeping during reassessment? No Presence of Pain Presence of Pain Yes Pain Scale Used Pain Scale Used Numeric Location Left, Right or Bilateral Right Pain Location Body Site Foot Description Description Sharp Intensity of Pain at present 8 Pain Behavior VS Changes Aggravating Factors Changing Position Exercise/Activity Walking Alleviating Factors/Management Medication Techniques Alleviating Factors Medication Disposition/Present on Arrival - Present on Arrival Any Indicators Present on Arrival: No History of DVT/PE: No History of Uncontrolled Diabetes: No Urinary Catheter: No History of Decub. Ulcer: No History Surgical Site Infection Following: None - Disposition Have Diagnosis and Disposition been Completed?: Yes Diagnosis: Ankle pain Disposition: HOME/ ROUTINE Disposition Time: 18:00 Patient Plan: Discharge Condition: STABLE Discharge Instructions (ExitCare): Foot Sprain (DC) Additional Instructions: Follow up with Dr. Mccarty tomorrow Follow up with orthopedist Return to ED for any new or worsening symptoms Prescriptions: traMADol [Ultram] 50 mg PO TID #12 tab Referrals: Marysol Mccarty MD [Primary Care Provider] - Follow up with primary Simba Claros III, MD [Medical Doctor] - Follow up with primary Rafael Serna DO [Staff Provider] - Follow up with primary
[2017-12-27 18:57] VITALS: O2SAT 99
--- NOTE | 2017-12-28 08:57 | RAD ---
PROCEDURE: Right Ankle Radiographs. HISTORY: ankle pain COMPARISON: None FINDINGS: BONES: No acute fracture or dislocation is identified. Deformities from old healed fractures of the medial and lateral malleoli are identified with the ankle mortise appearing grossly intact. Degenerative changes seen at the tibiotalar and talocalcaneal joints as well as at the incidentally captured midfoot joints relatively diffusely. No definitive destructive bony lesion appreciated. Local soft tissues appear grossly unremarkable. JOINTS: As above SOFT TISSUES: As above OTHER FINDINGS: None. IMPRESSION: No definite acute fracture or dislocation. Chronic healed fracture is are identified with limited deformity at the lateral and medial malleoli.
== END 2017-12-27 18:59 | disposition home or self-care (01) ==
LOC: ED 13:21
DX: M25.571 Pain in right ankle and joints of right foot (principal); I10 Essential (primary) hypertension; Z85.72 Personal history of non-Hodgkin lymphomas

== ENCOUNTER 2018-06-14 15:33 | Inpatient (IN) | payer MEDICARE, OTHER ==
[2018-06-14 15:49] VITALS: BMI 31.3
--- NOTE | 2018-06-14 16:34 | ED PDOC ---
Arrival/HPI - General Chief Complaint: Dizziness/Lightheaded Time Seen by Provider: 06/14/18 15:58 Historian: Patient - History of Present Illness Narrative History of Present Illness (Text): 06/14/18 16:31 Patient is a 77 yo female with past medical history of lung ca, splenectomy, dvt , cva, lymphoma, recent diagnosis of pneumonia, presents to the Emergency department complaining of nausea since awakening two days ago associated with mid abdominal pain, low back pain, and headache. Headache is not worse in life but is constant. She states she is not necessarily more nauseous with meals or movements. Denies neck pain. Denies fever. Reports abdominal and back pain appear separate and does not radiate. No new swelling or pain to the legs. Reports feeling generally weak. Denies bloody urine or stool. Denies dysuria or frequency. No chills. Time/Duration: Other (past two days) Symptom Onset: Gradual Symptom Course: Unchanged, Worsening Past Medical History - Infectious Disease Hx of Infectious Diseases: None - Tetanus Immunization Tetanus Immunization: Unknown - Cardiac Hx Cardiac Disorders: Yes Hx Hypertension: Yes Other/Comment: h/o blood clots/L groin - Pulmonary Hx Respiratory Disorders: Yes Hx Chronic Obstructive Pulmonary Disease (COPD): Yes Hx Pneumonia: Yes - Neurological Hx Neurological Disorder: Yes Hx Migraine: Yes Hx Transient Ischemic Attacks (TIA): Yes - HEENT Hx HEENT Disorder: Yes Hx Cataracts: Yes (b/l sx) Hx Glaucoma: Yes - Renal Hx Renal Disorder: No Other/Comment: polycystic kidney disease - Endocrine/Metabolic Hx Endocrine Disorders: No - Hematological/Oncological Hx Blood Disorders: Yes Hx Cancer: Yes (non hodgkins lymphoma, spleen, L lung) Hx Chemotherapy: Yes Other/Comment: PE, pt dx with ca spleen, spleen removed dx with non hodkins lymphoma, pt dx with ca left lung, two sx's to left lower lobe - Integumentary Hx Dermatological Disorder: No - Musculoskeletal/Rheumatological Hx Musculoskeletal Disorders: Yes Hx Arthritis: Yes Hx Back Pain: Yes Hx Falls: No Hx Spinal Stenosis: Yes Hx Unsteady Gait: Yes - Gastrointestinal Hx Gastrointestinal Disorders: Yes Hx Gastroesophageal Reflux: Yes Other/Comment: "esophageal problems," GI bleed - Genitourinary/Gynecological Hx Genitourinary Disorders: Yes Hx Urinary Tract Infection: Yes - Psychiatric Hx Psychophysiologic Disorder: Yes Hx Anxiety: Yes Hx Substance Use: No - Past Surgical History Past Surgical History: No Previous - Surgical History Hx Cardiac Catheterization: Yes Hx Coronary Stent: Yes (x2) Hx Hysterectomy: Yes Hx Orthopedic Surgery: Yes (right shoulder rotator cuff, R ankle) Hx Splenectomy: Yes Other/Comment: partial lobectomy left lung - Anesthesia Hx Anesthesia: Yes Hx Anesthesia Reactions: No Hx Malignant Hyperthermia: No - Suicidal Assessment Feels Threatened In Home Enviroment: No Family/Social History Family/Social History: Unknown Family HX Smoking Status: Never Smoked Hx Alcohol Use: No Hx Substance Use: No Hx Substance Use Treatment: No Allergies/Home Meds Allergies/Adverse Reactions: Allergies clopidogrel Allergy (Severe, Verified 09/05/16 02:34) RASH Home Medications: Home Meds Medication Instructions Recorded Confirmed Metoprolol Tartrate 50 mg PO BID 06/16/13 06/14/18 Zolpidem [Ambien] 10 mg PO HS PRN 06/30/16 06/14/18 Rivaroxaban [Xarelto] 20 mg PO DAILY 04/16/17 06/14/18 Budesonide/Formoterol Fumarate 2 puff IH BID 06/14/18 06/14/18 [Symbicort 160-4.5 Mcg Inhaler] Esomeprazole Magnesium [Nexium] 1 tab PO DAILY 06/14/18 06/14/18 Famotidine [Pepcid] 1 tab PO HS 06/14/18 06/14/18 Pravastatin Sodium [Pravachol] 1 tab PO HS 06/14/18 06/14/18 Review of Systems - Review of Systems Constitutional: Fatigue. absent: Weight Change, Fevers, Night Sweats Eyes: absent: Vision Changes, Photophobia ENT: absent: Hearing Changes, Sore Throat Respiratory: absent: SOB, Cough Cardiovascular: absent: Chest Pain, Calf Pain, CROFT Gastrointestinal: Abdominal Pain, Nausea, Appetite Changes. absent: Constipation, Diarrhea Genitourinary Female: absent: Dysuria, Frequency Musculoskeletal: Back Pain Skin: absent: Rash Neurological: Headache, Dizziness. absent: Focal Weakness, Gait Changes Endocrine: absent: Polyuria Hemo/Lymphatic: absent: Easy Bleeding Psychiatric: absent: Depression Physical Exam Vital Signs Reviewed: Yes Vital Signs Temp Pulse Resp BP Pulse Ox 06/14/18 18:55 97.7 F 62 18 150/73 99 06/14/18 15:53 97.8 F 58 L 18 159/87 H 99 Temperature: Afebrile Appearance: Positive for: Uncomfortable Pain Distress: Mild Mental Status: Positive for: Alert and Oriented X 3 - Systems Exam Head: Present: Atraumatic. No: Tenderness Pupils: Present: PERRL Extroacular Muscles: Present: EOMI Mouth: Present: Moist Mucous Membranes Pharnyx: No: ERYTHEMA Nose (Internal): Present: Normal Inspection Neck: Present: Normal Range of Motion. No: Meningeal Signs Respiratory/Chest: Present: Clear to Auscultation. No: Respiratory Distress Cardiovascular: Present: Murmurs, Bradycardic Abdomen: Present: Tenderness, Other (umbilical and epigastric pain but no jessica 's sign or pulsatile masses, no rebound or guarding) Back: Present: Paraspinal Tenderness. No: CVA Tenderness Upper Extremity: No: Cyanosis Lower Extremity: Present: Neurovascularly Intact. No: Edema, CALF TENDERNESS Neurological: Present: Motor Func Grossly Intact, Normal Sensory Function Skin: Present: Warm Psychiatric: Present: Alert, Normal Insight, Normal Concentration Medical Decision Making ED Course and Treatment: Patient with significant past medical history. She states she does have history of similar headaches in past and current headache not different in character. No fever or trauma. CT head negative. No hypoxia or respiratory distress noted. There is persistent diffuse abdominal pain on examination, no rebound or guarding, no pulsatile masses. On re-exam, pain persistent, but no acute findings on CT. Case d/w Dr. Mccarty, will admit for observation and serial exams given persistent intermittent abominal pain and headaches. 05/14/2018 17:17 Chest X-ray IMPRESSION: No active disease. Dictator: Brain Nair MD 05/14/2018 19:47 Abd/Pelvis CT IMPRESSION: No acute findings. Dictator: Lottie Gil MD 05/14/2018 20:[address] IMPRESSION: Patchy groundglass opacities are noted in the left lower lobe. Dictator: Lottie Gil MD 06/14/18 20:38 - Lab Interpretations Lab Results: 06/14/18 17:00 06/14/18 17:23 Lab Results 06/14/18 18:15: Urine Color Yellow, Urine Appearance Clear, Urine pH 6.0, Ur Specific [employer] 1.010, Urine Protein Negative, Urine Glucose (UA) Negative, Urine Ketones Negative, Urine Blood Trace-intact H, Urine Nitrate Negative, Urine Bilirubin Negative, Urine Urobilinogen 0.2, Ur Leukocyte Esterase Trace H , Urine RBC 1 - 3, Urine WBC 2 - 5, Ur Epithelial Cells 4 - 5, Urine Bacteria Mod 06/14/18 17:23: Sodium 138, Chloride 103, Potassium 4.6, Carbon Dioxide 27, Anion Gap 12, BUN 16, Creatinine 0.8, Est GFR ( Amer) > 60, Est GFR (Non- Af Amer) > 60, Random Glucose 95, Calcium 9.0, Total Bilirubin 0.7, AST 28, ALT 17, Alkaline Phosphatase 80, Lactate Dehydrogenase 534, Total Creatine Kinase 56 , Troponin I < 0.01, NT-Pro-B Natriuret Pep 422, Total Protein 7.3, Albumin 4.1 , Globulin 3.2, Albumin/Globulin Ratio 1.3, Amylase 103, Lipase 274 06/14/18 17:00: pO2 43, VBG pH 7.35, VBG pCO2 51.0, VBG HCO3 28.2 H, VBG Total CO2 29.8 H, VBG O2 Sat (Calc) 81.9 H, VBG Base Excess 1.7, VBG Potassium 5.4 H, Sodium 136.0, Chloride 104.0, Glucose 97, Lactate 1.0, FiO2 21.0, Venous Blood Potassium 5.4 H 06/14/18 17:00: PT 25.1 H, INR 2.17, APTT 39.2 H 06/14/18 17:00: WBC 10.6, RBC 4.26, Hgb 13.4, Hct 39.8, MCV 93.4, MCH 31.5, MCHC 33.7, RDW 14.3, Plt Count 348, MPV 10.6, Gran % 58.1, Lymph % (Auto) 33.2, [place] % (Auto) 5.4, Eos % (Auto) 3.0, Baso % (Auto) 0.3, Gran # 6.16, Lymph # ( Auto) 3.5 H, [place] # (Auto) 0.6, Eos # (Auto) 0.3, Baso # (Auto) 0.03 - RAD Interpretation Radiology Orders: 06/14/18 16:23 HEAD W/O CONTRAST [CT] Stat CHEST PORTABLE [RAD] Stat 06/14/18 16:27 CHEST,ABD,PEL W/IV CONT ONLY [CT] Stat Disposition/Present on Arrival - Present on Arrival Any Indicators Present on Arrival: No History of DVT/PE: No History of Uncontrolled Diabetes: No Urinary Catheter: No History of Decub. Ulcer: No History Surgical Site Infection Following: None - Disposition Have Diagnosis and Disposition been Completed?: Yes Diagnosis: Headache, Abdominal pain Disposition: HOSPITALIZED Disposition Time: 20:00 Patient Plan: Admission Patient Problems: Current Active Problems Problem Status Onset Abdominal pain Acute Headache Acute Condition: FAIR Forms: [employer] ([place])
[2018-06-14 17:13] LABS: BASO # 0.03 K/mm3 (0.0-2.0); BASO % 0.3 % (0.0-3.0); EOS # 0.3 (0.0-0.7); GRAN # 6.16 (1.4-6.5); GRAN % 58.1 % (50.0-68.0); HEMOGLOBIN 13.4 g/dL (12.0-16.0); LYMPH # 3.5 (1.2-3.4); LYMPH % 33.2 % (22.0-35.0); MEAN CELL VOLUME 93.4 fl (80.0-105.0); MEAN CORPUSCULAR HEMOGLOBIN 31.5 pg (25.0-35.0); MEAN CORPUSCULAR HGB CONC 33.7 g/dl (31.0-37.0); MEAN PLATELET VOLUME 10.6 fl (7.0-11.0); MONO # 0.6 (0.1-0.6); MONO % 5.4 % (1.0-6.0); RBC 4.26 10^6/uL (3.5-6.1); RED CELL DISTRIBUTION WIDTH 14.3 % (11.5-14.5); WHITE BLOOD COUNT 10.6 10^3/ul (4.5-11.0)
[2018-06-14 17:14] LABS: VENOUS BLOOD GAS BASE EXCESS 1.7 mmol/L (0.0-2.0); VENOUS BLOOD GAS PO2 43 mm/Hg (30-55); VENOUS BLOOD PH 7.35 (7.32-7.43)
--- NOTE | 2018-06-14 17:18 | RAD ---
Date of service: 06/14/2018 HISTORY: dizziness COMPARISON: No prior. FINDINGS: LUNGS: No active pulmonary disease. PLEURA: No significant pleural effusion identified, no pneumothorax apparent. CARDIOVASCULAR: No radiographic findings to suggest acute or significant cardiovascular disease. OSSEOUS STRUCTURES: No significant abnormalities. VISUALIZED UPPER ABDOMEN: Normal. OTHER FINDINGS: None. IMPRESSION: No active disease.
[2018-06-14 17:20] LABS: INR 2.17; PROTHROMBIN TIME 25.1 SECONDS (9.4-12.5)
[2018-06-14 17:23] LABS: PARTIAL THROMBOPLASTIN TIME 39.2 Seconds (25.1-36.5)
[2018-06-14 17:57] LABS: ALB/GLOB RATIO 1.3 (1.1-1.8); ALBUMIN 4.1 g/dL (3.0-4.8); ALT/SGPT 17 U/L (7-56); AMYLASE 103 U/L (35-125); AST/SGOT 28 U/L (14-36); BLOOD UREA NITROGEN 16 mg/dL (7-21); GFR AFRICAN-AMERICAN > 60; GFR NON-AFRICAN AMERICAN > 60; LIPASE 274 U/L (23-300)
[2018-06-14 18:00] LABS: B-TYPE NATRIURETIC PEPTIDE 422 pg/mL (0-450); TROPONIN I < 0.01 ng/mL
[2018-06-14 18:40] LABS: URINE BILIRUBIN NEGATIVE (NEGATIVE); URINE BLOOD TRACE-INTACT (NEGATIVE); URINE GLUCOSE (UA) NEGATIVE (NEGATIVE); URINE LEUKOCYTE ESTERASE TRACE Leu/uL (NEGATIVE); URINE PROTEIN NEGATIVE mg/dL (<30 mg/dL); URINE UROBILINOGEN 0.2 E.U./dL (<1 E.U./dL)
[2018-06-14 18:44] LABS: URINE APPEARANCE CLEAR (CLEAR); URINE COLOR YELLOW (YELLOW)
--- NOTE | 2018-06-14 19:00 | CT ---
Date of service: 06/14/2018 PROCEDURE: CT HEAD WITHOUT CONTRAST. HISTORY: headache COMPARISON: 04/30/2013 bold 03/22/2015 TECHNIQUE: Axial computed tomography images were obtained through the head/brain without intravenous contrast. Coronal and sagittal reconstructed images. Radiation dose: Total exam DLP = 687.94 mGy-cm. This CT exam was performed using one or more of the following dose reduction techniques: Automated exposure control, adjustment of the mA and/or kV according to patient size, and/or use of iterative reconstruction technique. FINDINGS: HEMORRHAGE: No intracranial hemorrhage. BRAIN: No mass effect or edema. Cortical atrophy, periventricular small vessel disease. VENTRICLES: Unremarkable. No hydrocephalus. CALVARIUM: Unremarkable. PARANASAL SINUSES: Unremarkable as visualized. No significant inflammatory changes. MASTOID AIR CELLS: Unremarkable as visualized. No inflammatory changes. OTHER FINDINGS: None. IMPRESSION: No acute intracranial abnormalities. No significant findings to account for the clinical presentation. No significant interval change compared to the prior examination(s).
[2018-06-14 19:09] LABS: URINE BACTERIA MOD (NEG)
[2018-06-14] MEDS ORDERED: Dexamethasone 4 mg/1 ml IVP ONE (22:49)
[2018-06-14] MEDS: Apap-Butalbital-Caffeine 325-50-40mg Tab PO PRN (23:31)
--- NOTE | 2018-06-15 09:09 | CARD ---
APPROVED REPORT Date of service: 06/14/2018 EKG Measurement Heart [id number] <Conclusion> Normal sinus rhythm Normal ECG
--- NOTE | 2018-06-15 10:23 | CT ---
Date of service: 06/14/2018 PROCEDURE: CT Chest, Abdomen and Pelvis with intravenous contrast HISTORY: abdominal and back pain hx of cancer COMPARISON: None available. TECHNIQUE: IV dose administered: 150 cc of Omni 350 Radiation dose: Total exam DLP = 871 mGy-cm. This CT exam was performed using one or more of the following dose reduction techniques: Automated exposure control, adjustment of the mA and/or kV according to patient size, and/or use of iterative reconstruction technique. FINDINGS: CT CHEST WITH CONTRAST: LUNGS: Clear. No nodule, mass or consolidation. Minimal interstitial infiltrate or scar is seen in the left lower lobe. MEDIASTINUM: Unremarkable. Normal caliber aorta and pulmonary arterial trunk. No aortic dissection. Normal size heart. Coronary artery calcification. No evidence of pulmonary embolus. LYMPH NODES: Unremarkable. PLEURA: Unremarkable. No pneumothorax. No pleural fluid. BONES: Unremarkable. OTHER FINDINGS: None. CT ABDOMEN AND PELVIS: LIVER: Unremarkable. No gross lesion or ductal dilatation. GALLBLADDER AND BILE DUCTS: Unremarkable. PANCREAS: Unremarkable. No gross lesion or ductal dilatation. SPLEEN: Unremarkable. ADRENALS: Unremarkable. No mass. KIDNEYS AND URETERS: Unremarkable. No hydronephrosis. No solid mass. VASCULATURE: Unremarkable. No aortic aneurysm. BOWEL: Unremarkable. No obstruction. No gross mural thickening. APPENDIX: Normal appendix. PERITONEUM: Unremarkable. No free fluid. No free air. LYMPH NODES: Unremarkable. No enlarged lymph nodes. BLADDER: Unremarkable. REPRODUCTIVE: Unremarkable. BONES: No acute fracture. OTHER FINDINGS: The report concurs with the preliminary [facility] report IMPRESSION: No acute intrathoracic or intra-abdominal findings
[2018-06-15] MEDS: Cefepime 1gm in NS 100ml 1 GM/100 ML BAG IVPB SCH ×2 (13:02→22:24)
[2018-06-15] MEDS: POLYETHYLENE GLYCOL 3350 17 GM/Dose PACKET PO SCH ×2 (13:20→17:22)
--- NOTE | 2018-06-15 14:07 | CP.PCM.CON ---
<Solomon Moise - Last Filed: 06/15/18 14:07> History of Present Illness - History of Present Illness History of Present Illness: PGY6 GI Fellow Consult Note Patient is a 71yo female with PMHx significant for lung cancer s/p left lobectomy and chemotherapy, non-Hodgkin lymphoma s/p chemotherapy and splenectomy, DVT/PE, DJD who presented to the hospital with left sided back and flank pain, headache. States that symptoms began Sunday evening and slowly worsened to the point where she could no longer tolerate pain and came to the ED for further evaluation. Denies using any medications prior to arrival to alleviate symptoms. Presently, states that symptoms are somewhat improved. She denies any fever, chills, cough, sick contacts, weight loss, nausea, vomiting, change in bowel habits 12 system ROS performed and negative except where stated. PMHx: See HPI PSHx: Left lung lobectomy, hysterectomy, splenectomy, B/L carpal tunnel release , right rotator cuff surgery, right ankle ORIF FHx: Discussed with patient and she denies any significant family history Social: Quit smoking 16 years ago, no EtOH or illicit drug use Endo: Colonoscopy more than 5 years ago - unknown findings Past Patient History - Infectious Disease Hx of Infectious Diseases: None - Tetanus Immunizations Tetanus Immunization: Unknown - Past Social History Smoking Status: Former Smoker - CARDIAC Hx Cardiac Disorders: Yes Hx Hypertension: Yes Other/Comment: h/o blood clots/L groin - PULMONARY Hx Respiratory Disorders: Yes Hx Chronic Obstructive Pulmonary Disease (COPD): Yes Hx Pneumonia: Yes - NEUROLOGICAL Hx Neurological Disorder: Yes Hx Migraine: Yes Hx Transient Ischemic Attacks (TIA): Yes - HEENT Hx HEENT Problems: Yes Hx Cataracts: Yes (b/l sx) Hx Glaucoma: Yes - RENAL Hx Chronic Kidney Disease: No Other/Comment: polycystic kidney disease - ENDOCRINE/METABOLIC Hx Endocrine Disorders: No - HEMATOLOGICAL/ONCOLOGICAL Hx Blood Disorders: Yes Hx Cancer: Yes (non hodgkins lymphoma, spleen, L lung) Hx Chemotherapy: Yes Other/Comment: PE, pt dx with ca spleen, spleen removed dx with non hodkins lymphoma, pt dx with ca left lung, two sx's to left lower lobe - INTEGUMENTARY Hx Dermatological Problems: No - MUSCULOSKELETAL/RHEUMATOLOGICAL Hx Arthritis: Yes Hx Back Pain: Yes Hx Falls: No Hx Gout: Yes Hx Spinal Stenosis: Yes - GASTROINTESTINAL Hx Gastrointestinal Disorders: Yes Hx Gastroesophageal Reflux: Yes Other/Comment: "esophageal problems," GI bleed - GENITOURINARY/GYNECOLOGICAL Hx Genitourinary Disorders: Yes Hx Urinary Tract Infection: Yes - PSYCHIATRIC Hx Psychophysiologic Disorder: Yes Hx Anxiety: Yes Hx Depression: Yes - SURGICAL HISTORY Hx Cardiac Catheterization: Yes Hx Coronary Stent: Yes (x2) Hx Hysterectomy: Yes (1969) Hx Orthopedic Surgery: Yes (right shoulder rotator cuff, R ankle) Hx Splenectomy: Yes Other/Comment: partial lobectomy left lung, splenectomy (2011), right ankle sx X 's 2 () left sided neck lymph node removal Sx, B/L carpel tunnel Sx (1980) , - ANESTHESIA Hx Anesthesia: Yes Hx Anesthesia Reactions: No Hx Malignant Hyperthermia: No Meds Allergies/Adverse Reactions: Allergies Allergy/AdvReac Type Severity Reaction Status Date / Time clopidogrel Allergy Severe RASH Verified 09/05/16 02:34 - Medications Medications: Current Medications Acetaminophen/Butalbital/Caffeine (Fioricet) 1 tab PO Q4H PRN PRN Reason: Headache Last Admin: 06/14/18 23:31 Dose: 1 tab Arformoterol Tartrate (Brovana) 15 mcg IH [id number] [facility] Budesonide (Pulmicort Respules) 0.5 mg IH [id number] [facility] Famotidine (Pepcid) 20 mg PO HS [facility] Cefepime HCl (Maxipime 1gm) 1 gm in 100 mls @ 100 mls/hr IVPB Q8 [facility] PRN Reason: Protocol Stop: 06/20/18 14:01 Last Admin: 06/15/18 13:02 Dose: 100 mls/hr Metoprolol Tartrate (Lopressor) 50 mg PO BID [facility] Last Admin: 06/15/18 09:04 Dose: 50 mg Polyethylene Glycol (Miralax) 17 gm PO BID [facility] Last Admin: 06/15/18 13:20 Dose: 17 gm Rivaroxaban (Xarelto) 20 mg PO DIN [facility] PRN Reason: Protocol Topiramate (Topamax) 25 mg PO DAILY [facility] PRN Reason: Protocol Last Admin: 06/15/18 13:02 Dose: 25 mg Physical Exam - Constitutional Appears: Non-toxic, No Acute Distress - Eye Exam Eye Exam: EOMI, PERRL - ENT Exam ENT Exam: Mucous Membranes Moist - Respiratory Exam Respiratory Exam: Rales (LLL). absent: Clear to Auscultation Bilateral, Rhonchi , Wheezes - Cardiovascular Exam Cardiovascular Exam: RRR, +S1, +S2 - GI/Abdominal Exam GI & Abdominal Exam: Normal Bowel Sounds, Soft. absent: Distended, Firm, Guarding, Organomegaly, Rigid, Tenderness - Extremities Exam Extremities exam: Positive for: normal inspection. Negative for: pedal edema - Neurological Exam Neurological exam: Alert, Oriented x3 - Psychiatric Exam Psychiatric exam: Normal Affect, Normal Mood - Skin Skin Exam: Dry, Warm Results - Vital Signs Recent Vital Signs: Last Vital Signs Temp 98.3 F 06/14/18 22:00 Pulse 74 06/15/18 09:04 Resp 20 06/14/18 22:00 BP 153/94 H 06/15/18 09:04 Pulse Ox 95 06/14/18 21:53 - Labs Result Diagrams: 06/14/18 17:00 06/14/18 17:23 Assessment & Plan - Assessment and Plan (Free Text) Assessment: Patient is a 71yo female with PMHx significant for lung cancer s/p left lobectomy and chemotherapy, non-Hodgkin lymphoma s/p chemotherapy and splenectomy, DVT/PE, DJD who presented to the hospital with left sided back and flank pain, headache. -Left back/flank discomfort Plan: -Lab work unremarkable and vitals showing only hypertension presently -No significant findings on physical examination presently which may signify interval improvement in symptoms -Consider viral syndrome or possible developing LLL pneumonia -CT images cannot be uploaded at this time, report from radiology reviewed -Diet as tolerated - Date & Time Date: 06/15/18 Time: 07:00 <Zacarias Momin V - Last Filed: 06/16/18 00:06> Meds - Medications Medications: Current Medications Acetaminophen/Butalbital/Caffeine (Fioricet) 1 tab PO Q4H PRN PRN Reason: Headache Last Admin: 06/15/18 20:45 Dose: 1 tab Arformoterol Tartrate (Brovana) 15 mcg IH [id number] [facility] Budesonide (Pulmicort Respules) 0.5 mg IH [id number] [facility] Famotidine (Pepcid) 20 mg PO HS [facility] Last Admin: 08/04/18 22:24 Dose: 20 mg Cefepime HCl (Maxipime 1gm) 1 gm in 100 mls @ 100 mls/hr IVPB Q8 [facility] PRN Reason: Protocol Stop: 06/20/18 14:01 Last Admin: 06/15/18 22:24 Dose: 100 mls/hr Metoprolol Tartrate (Lopressor) 50 mg PO BID [facility] Last Admin: 06/15/18 17:22 Dose: 50 mg Polyethylene Glycol (Miralax) 17 gm PO BID [facility] Last Admin: 06/15/18 17:22 Dose: 17 gm Rivaroxaban (Xarelto) 20 mg PO DIN [facility] PRN Reason: Protocol Last Admin: 06/15/18 17:22 Dose: 20 mg Topiramate (Topamax) 25 mg PO DAILY [facility] PRN Reason: Protocol Last Admin: 06/15/18 13:02 Dose: 25 mg Results - Vital Signs Recent Vital Signs: Last Vital Signs Temp 97.4 F L 06/15/18 14:54 Pulse 64 06/15/18 22:26 Resp 20 06/15/18 14:54 BP 167/80 H 06/15/18 17:22 Pulse Ox 99 06/15/18 14:54 - Labs Result Diagrams: 06/14/18 17:00 06/15/18 14:49 Labs: Laboratory Results - last 24 hr 06/15/18 06/15/18 14:49 15:26 Sodium 138 Potassium 4.6 Chloride 102 Carbon Dioxide 23 Anion Gap 18 BUN 19 Creatinine 0.9 Est GFR ( Amer) > 60 Est GFR (Non-Af Amer) > 60 Random Glucose 105 Calcium 9.5 Procalcitonin < 0.05 L Attending/Attestation - Attestation I have personally seen and examined this patient.: Yes I have fully participated in the care of the patient.: Yes I have reviewed all pertinent clinical information: Yes Notes (Text): Associated This is an addendum to GI consult report dictated by the GI Fellow.The patient was seen and examined earlier. Medical records, lab studies , imagings were reviewed. Last 24 hours events reviewed. Agreed with the above treatment plan as outlined in GI Fellow 's notes with the addition of the following patient complains of right sided back pain and mild discomfort in the left side of chest CT findings noted Pulmonary consult was called Discussed with Dr Mccarty 06/16/18 00:03
[2018-06-15 15:03] LABS: BLOOD UREA NITROGEN 19 mg/dL (7-21); CALCIUM 9.5 mg/dL (8.4-10.5); GFR AFRICAN-AMERICAN > 60; GFR NON-AFRICAN AMERICAN > 60
--- NOTE | 2018-06-15 18:54 | CON ---
Copied To: Garry Mccray MD Attending MD: Garry Mccray MD DATE: 06/15/2018 PULMONARY CONSULTATION HISTORY OF PRESENT ILLNESS: The patient is a 77-year-old woman with a past medical history of lung cancer. She has had a splenectomy in the past. She had lymphoma and deep vein thrombosis of the lung. I have discussed the case with Dr. Marysol Mccarty, her primary medical doctor. She was in [place] when she was told that she had pneumonia, although the x-rays reviewed after that did not show acute infiltrates. She is back in [place]. She is complaining of headaches, abdominal pain. There is no respiratory distress. Her symptoms are mainly GI in nature. Dr. Momin has asked me to see the patient for an abnormal finding on CAT scan of the chest. There is no other pulmonary history at this time. The patient is comfortable at rest without oxygen. PAST MEDICAL HISTORY: Her past history includes lung cancer as discussed. She has COPD by history. Her compliance with pulmonary medications is unclear. She does take Symbicort occasionally. ALLERGIES: SHE IS ALLERGIC TO CLOPIDOGREL. SOCIAL HISTORY: She is a nonsmoker. No occupational or travel history. FAMILY HISTORY: HTN, CAD REVIEW OF THE SYSTEMS: Discussed with the patient. No pulmonary complaints at this time. Pt does complain of headache and abdominal pains. She was last seen in my office 7 months ago. I will review those records to look for further information. All other systems negative. PHYSICAL EXAMINATION: GENERAL: She is resting comfortably, sitting in bed, no acute distress. VITAL SIGNS: She is afebrile, pulse 62, respiratory rate 16, blood pressure 140/70, pulse ox 99% on room air. NECK: Supple. No jugular venous distention. HEENT: Normocephalic, atraumatic. Eyes PERRLA. EOMs full. Conjunctivae pink. NECK: Supple. No JVD. No lymphadenopathy. No bruit. RESPIRATORY: Lungs are clear to percussion and auscultation. There are no rales, rhonchi or wheezes. ABDOMEN: Soft. Bowel sounds normoactive without mass, guarding, rebound or organomegaly. EXTREMITIES: Reveal no clubbing, cyanosis or edema. NEUROLOGIC: No focal findings. LABORATORY DATA: Laboratory findings by a progress note, it states that the CAT scan showed some left ground-glass findings. The report is not available for my review at this time. All films are not available for my review at this time. This needs further evaluation, but does not appear to be an acute problem. Chest x-ray is read as normal. Laboratory studies look within normal limits. The white count is 10,000, hemoglobin 13. Blood gas showed pH of 7.35, pCO2 of 51 and a pO2 of 82. Chemistries are all normal. Urine shows some white blood cells, but nothing acute. EKG: Sinus rhythm, nonspecific ST-T wave changes. IMPRESSION: 1. Headache, abdominal pain. 2. History of chronic obstructive pulmonary disease/asthma. 3. History of lung cancer. 4. Questionable findings on CAT scan, acute versus chronic. No acute changes appeared to be present at this time. PLAN: We will review the CAT scan when it is available and try to compare this with old films to help decide what additional diagnostic care if anything is necessary. We will resume the patient's Symbicort to prevent acute bronchospasm and decide on the need for further intervention following that. Thank you for the opportunity to care for Rosey. We will discuss these findings with Dr. Marysol Mccarty this morning. Garry Mccray MD MTDSindy
[2018-06-15] MEDS ORDERED: Arformoterol 15 mcg/2 ml Inh Sol IH SCH (20:00)
[2018-06-15] MEDS ORDERED: Budesonide 0.5 mg/2 ml Inhal Susp UD IH SCH (20:00)
--- NOTE | 2018-06-15 20:41 | HP ---
Copied To: Marysol Mccarty MD Attending MD: Marysol Mccarty MD HISTORY OF PRESENT ILLNESS: A 77-year-old female who states that for the last 48 hours, she has been having feelings of upset stomach, headache, backache, nausea, occasional chill. She was offered the option of going to the [facility] initially and she refused. Subsequently with followup discussion, she agreed to come in to the emergency room for evaluation. PAST MEDICAL HISTORY: She has a past medical history of ALLERGY TO ZYVOX, history of lymphoma, splenectomy, lung cancer with 2 surgeries. The lymphoma was treated by Dr. Contreras and by Oncology in [place] and the lung cancer has been treated at [facility]. She has a history of pneumonia, recently treated when she was on vacation visiting family in [place]. She has a history of coronary artery disease, restless leg syndrome, hyperlipidemia, history of gastritis, and history of chronic pain syndrome. SOCIAL HISTORY: She is a nonsmoker, nondrinker, non drug user. REVIEW OF SYSTEMS: Multiple systems are reviewed, pertinent findings as stated in the physical. PHYSICAL EXAMINATION: VITAL SIGNS: Show a temperature of 98.3, pulse is 67, blood pressure was 170/88, respiratory rate was 20, oxygen sat was reported at 97% on room air. GENERAL: She is alert and oriented x3. NECK: Supple. LUNGS: Clear. HEART: S1, S2 rhythm. ABDOMEN: Soft. Mild upset as per the patient. EXTREMITIES: Show no evidence of edema. LABORATORY DATA: Showed a WBC of 10.6, RBC of 4.26, hemoglobin 13.4, hematocrit 39.8, and platelet count 348. PT of 25.1, INR of 2.17, PTT of 39.2. Lactate was 1. Chemistry showed glucose of 92 with normal chemistries. Troponin is less than 0.01. Lipase is 274, amylase is 103. Urinalysis shows trace leukocyte esterase with moderate urine bacteria. The patient had a chest x-ray which was reported as showing no active disease. CAT scan of the head also the abdomen, chest, and pelvis are pending. Electrocardiogram was reported as showing a sinus rhythm. HOME MEDICATIONS: Consist of Xarelto 20 mg daily, Pravachol one tab daily, metoprolol 50 mg b.i.d., Pepcid one tab daily, Symbicort b.i.d., Rytary 23.75/95 b.i.d., Ultram 50 mg t.i.d., and Ambien 10 mg at bedtime p.r.n. IMPRESSION: A 77-year-old female with; 1. Headache. 2. Gastrointestinal upset. 3. History of coronary artery disease. 4. History of lymphoma. 5. History of splenectomy. 6. History of lung cancer with 2 surgeries. 7. History of degenerative arthritis of the spine. PLAN: We will call appropriate consultants and further plan and treatment as per input from the individual consultants. Marysol Mccarty MD
[2018-06-15] MEDS: Apap-Butalbital-Caffeine 325-50-40mg Tab PO PRN (20:45)
--- NOTE | 2018-06-15 21:20 | CON ---
Copied To: René Huston MD Attending MD: René Huston MD DATE: 06/15/2018 CHIEF COMPLAINT: Nausea and weakness and dizziness and headaches x several days. HISTORY OF PRESENT ILLNESS: This is a 77-year-old female with past medical history significant for non-Hodgkin's lymphoma, status post chemotherapy and past medical history is significant for lung cancer and hypertension, chronic obstructive lung disease, TIA x2, cerebrovascular accident, high cholesterol, chronic back pain and coronary artery disease, cardiac stents in the past, who is admitted with weakness, nausea, dizziness and headaches, generalized aches and pains, not feeling right. She denies any fevers, any chills. No chest pain. No cough, no shortness of breath. She is complaining of left-sided flank pain. No abdominal pain now. No diarrhea or constipation or bright red blood per rectum. REVIEW OF SYSTEMS: A 12-point review of systems is performed. PAST MEDICAL HISTORY: Significant for non-Hodgkin's lymphoma, status post chemotherapy and lung cancer, hypertension, chronic obstructive lung disease, coronary artery disease, TIA, cerebrovascular accident and chronic back pain, arthritis, high cholesterol, DVT, spinal stenosis. PAST SURGICAL HISTORY: Significant for cataract surgery, cardiac cath with stent, ankle surgery in 2012 and splenectomy. ALLERGIES: THE PATIENT IS ALLERGIC TO PLAVIX. MEDICATIONS AT HOME: Include Xarelto, Pravachol, metoprolol, Pepcid, Nexium and inhalers and Ultram and Ambien. SOCIAL HISTORY: No travel history outside [place] and she lives by herself. No pet history. She is a long-time ex-smoker. PHYSICAL EXAMINATION: VITAL SIGNS: The patient's temperature is 98, heart rate of 67, respiratory rate 20, blood pressure is 174/90. HEENT: Unremarkable. NECK: Supple. LUNGS: Have decreased breath sounds. HEART: Normal S1, S2. ABDOMEN: Soft, nontender. No organomegaly. No rebound or guarding or masses. LABORATORY DATA: Laboratory examination reveals a white count of 10,000, hemoglobin of 13, platelets of 348 and 58% granulocytosis. Coagulation is noted and chemistries reveals to be unremarkable and lipase and amylase is noted and urinalysis reveals 2-5 wbc's, moderate bacteria, trace leukocyte esterase, trace blood. The patient had a CAT scan of the chest and abdomen and CAT scan of the head and a chest x-ray which are all reported to be negative. CAT scan of the chest, a questionable left lower lobe infiltrate and blood cultures have been sent. Urine cultures have been sent. ASSESSMENT AND PLAN: A 77-year-old female with non-Hodgkin's lymphoma, status post chemotherapy; lung cancer; chronic obstructive lung disease; coronary artery disease; hypertension; transient ischemic attack x2; cerebrovascular accident; chronic back pain; arthritis; high cholesterol;deep venous thrombosis; spinal stenosis, admitted with nausea, weakness, dizziness and headaches, who has a history of splenectomy, ankle surgery and cardiac cath and stents. Urinary tract infection versus left pyelonephritis and the patient was nauseated, unable to take p.o. and we will treat the patient with Maxipime. Pending blood cultures, urine cultures, procalcitonin and we will follow closely with you. René Huston MD
[2018-06-15] MEDS ORDERED: Fluticasone-Salmeterol 250-50mcg Diskus IH SCH (22:00)
--- NOTE | 2018-06-15 23:17 | CON ---
Copied To: Brock Astudillo MD Attending MD: Brock Astudillo MD DATE: 06/15/2018 HISTORY OF PRESENT ILLNESS: This is a 77-year-old white female with past medical history of lung CA and lymphoma and had two minor strokes and came here to the hospital with abdominal pain, low back pain and headache. Headache is better now with Fioricet and no visual problems, no double vision. No numbness or tingling in the arms, legs or face and still has some low back pain and still has abdominal discomfort. PAST MEDICAL HISTORY: As above. Patient has COPD, pneumonia and high blood pressure and coronary artery disease. Patient in the past had chemotherapy also. Also, complaining of arthritis and back pain. ALLERGIES: PLAVIX. HOME MEDICATIONS: Patient is on Ambien, Xarelto and Symbicort and Nexium. REVIEW OF SYSTEMS: A 10-point review of systems was negative except headache and abdominal discomfort. PHYSICAL EXAMINATION: VITAL SIGNS: Blood pressure is 159/87. HEENT: Normocephalic, atraumatic. NECK: Supple. NEUROLOGIC: Alert, awake, oriented x3. No aphasia. Cranial nerves II through XII were tested. Pupils reactive. EOM intact. Visual wiseman full. No facial asymmetry. Tongue midline. Motor examination: Spontaneous movement of the extremities noted. Strength 5/5. Tone normal. Deep tendon reflexes are 1+, Both plantars are downgoing. Sensory appears intact. Cerebellar, gait deferred. LABORATORY DATA: WBC 10.6, hemoglobin 13.4, hematocrit 39.8, platelets 348. Sodium 138, potassium 4.6, chloride 103, glucose 95, BUN 16, creatinine 0.8. IMPRESSION: Headache, which got better with Fioricet and CAT scan of the head was done, which was reported negative. No bleed or stroke. PLAN: Continue Fioricet every 4 hours p.r.n. for headaches and also I started Topamax 25 mg p.o. daily for headache prevention. Continue present management. We will follow. Brock Astudillo MD
[2018-06-16] MEDS: Cefepime 1gm in NS 100ml 1 GM/100 ML BAG IVPB SCH ×3 (07:37→22:18)
[2018-06-16 08:03] LABS: BASO # 0.03 K/mm3 (0.0-2.0); BASO % 0.3 % (0.0-3.0); EOS # 0.2 (0.0-0.7); EOS % 2.5 % (1.5-5.0); GRAN # 4.33 (1.4-6.5); HEMOGLOBIN 12.5 g/dL (12.0-16.0); LYMPH # 3.8 (1.2-3.4); LYMPH % 40.6 % (22.0-35.0); MEAN CELL VOLUME 91.9 fl (80.0-105.0); MEAN CORPUSCULAR HEMOGLOBIN 30.9 pg (25.0-35.0); MEAN CORPUSCULAR HGB CONC 33.6 g/dl (31.0-37.0); MEAN PLATELET VOLUME 10.7 fl (7.0-11.0); MONO % 10.6 % (1.0-6.0); RBC 4.05 10^6/uL (3.5-6.1); RED CELL DISTRIBUTION WIDTH 14.3 % (11.5-14.5); WHITE BLOOD COUNT 9.4 10^3/ul (4.5-11.0)
[2018-06-16] MEDS: POLYETHYLENE GLYCOL 3350 17 GM/Dose PACKET PO SCH ×2 (09:16→16:59)
--- NOTE | 2018-06-16 10:52 | PN ---
Copied To: Marysol Mccarty MD Attending MD: Marysol Mccarty MD DATE: 06/16/2018 SUBJECTIVE: This is a 77-year-old female resting comfortably this morning. Nursing staff relates that the patient was complaining about achiness in her legs, which she attributes to her restless legs history. PHYSICAL EXAMINATION: GENERAL: She is alert and oriented x3. VITAL SIGNS: Show a temperature of 98, her pulse is 61, her blood pressure is 143/75, her respiratory rate is 18. Her oxygen saturation is reported of 100% on room air. LUNGS: Shows diminished breath sounds at the bases. HEART: In S1, S2. ABDOMEN: Soft, scaphoid. Positive bowel sounds. EXTREMITIES: No evidence of edema. LABORATORY DATA: Shows a WBC of 9.4, RBC of 4.05, hemoglobin 12.5, hematocrit 37.2, platelet count 321. Chemistry shows sodium 138, potassium 4.6, chloride 102, CO2 of 23, BUN of 19, creatinine of 0.9. Random blood sugar is 105. Procalcitonin is less than 0.05. At this point, urine culture is showing gram negative rods and blood cultures are negative at 24 hours. The patient is receiving IV cefepime by Infectious Disease. She has been seen by Pulmonary. Findings on the CAT scan of the chest show evidence of a left possible infiltrate, possible scar. She has been seen by Cardiology and as per the patient, is recommending a stress test. She has been seen by GI who is currently following the patient. At this time, we will await their plan of care. She is receiving respiratory treatments for her underlying COPD. Neurology is seeing the patient for her headache symptomatology, has been placed on Topamax and Fioricet. We explained to the patient that Neurology is recommending that she review with her neurologist, Dr. Momin, her use of Rytary, which the patient understands and agrees to. We will continue current medications at this time. The patient has been encouraged to get out of bed and she continues on Xarelto and Lopressor. She has past a medical history of lymphoma, splenectomy, lung cancer with 2 surgical procedures, history of pneumonia, history of degenerative arthritis of the spine. The patient understands all the clinical findings to date and current recommendations at this time. Marysol Mccarty MD [facility] # [id number]
--- NOTE | 2018-06-16 14:11 | CP.PCM.PN ---
<Solomon Moise - Last Filed: 06/16/18 14:06> Subjective - Date & Time of Evaluation Date of Evaluation: 06/16/18 Time of Evaluation: 07:20 - Subjective Subjective: PGY6 GI Fellow Progress Note Patient seen and examined bedside this morning. The patient states that she had restless legs last night as she is not taking her home medication for this condition. Notes improvement in abdominal/flank pain but states still present; unable to provide insight as to exacerbating/alleviating factors. Tolerating diet without much issue. 12 system ROS performed and negative except where stated Objective - Vital Signs/Intake and Output Vital Signs (last 24 hours): Temp Pulse Resp BP Pulse Ox 98 F 61 18 143/75 100 06/16/18 08:43 06/16/18 09:16 06/16/18 08:43 06/16/18 09:16 06/16/18 08:43 Intake and Output: 06/16/18 06/16/18 06:59 18:59 Intake Total 0 Output Total 0 Balance 0 - Medications Medications: Current Medications Acetaminophen/Butalbital/Caffeine (Fioricet) 1 tab PO Q4H PRN PRN Reason: Headache Last Admin: 06/15/18 20:45 Dose: 1 tab Arformoterol Tartrate (Brovana) 15 mcg IH [id number] [facility] Budesonide (Pulmicort Respules) 0.5 mg IH [id number] [facility] Famotidine (Pepcid) 20 mg PO HS [facility] Last Admin: 06/15/18 22:24 Dose: 20 mg Cefepime HCl (Maxipime 1gm) 1 gm in 100 mls @ 100 mls/hr IVPB Q8 [facility] PRN Reason: Protocol Stop: 06/20/18 14:01 Last Admin: 06/16/18 13:46 Dose: 100 mls/hr Metoprolol Tartrate (Lopressor) 50 mg PO BID [facility] Last Admin: 06/16/18 09:16 Dose: 50 mg Polyethylene Glycol (Miralax) 17 gm PO BID [facility] Last Admin: 06/16/18 09:16 Dose: 17 gm Rivaroxaban (Xarelto) 20 mg PO DIN [facility] PRN Reason: Protocol Last Admin: 06/15/18 17:22 Dose: 20 mg Topiramate (Topamax) 25 mg PO DAILY [facility] PRN Reason: Protocol Last Admin: 06/16/18 09:16 Dose: 25 mg - Labs Labs: 06/16/18 07:30 06/15/18 14:49 PT 25.1 SECONDS (9.4-12.5) H 06/14/18 17:00 INR 2.17 06/14/18 17:00 APTT 39.2 Seconds (25.1-36.5) H 06/14/18 17:00 - Constitutional Appears: Non-toxic, No Acute Distress - Eye Exam Eye Exam: EOMI, PERRL - ENT Exam ENT Exam: Mucous Membranes Moist - Respiratory Exam Respiratory Exam: Clear to Ausculation Bilateral. absent: Rales, Rhonchi, Wheezes - Cardiovascular Exam Cardiovascular Exam: RRR, +S1, +S2 - GI/Abdominal Exam GI & Abdominal Exam: Soft, Tenderness, Normal Bowel Sounds. absent: Distended, Firm, Guarding, Rigid, Organomegaly - Extremities Exam Extremities Exam: Normal Inspection. absent: Pedal Edema - Neurological Exam Neurological Exam: Alert, Awake, Oriented x3 - Psychiatric Exam Psychiatric exam: Normal Affect, Normal Mood - Skin Skin Exam: Dry, Warm Assessment and Plan - Assessment and Plan (Free Text) Assessment: Patient is a 71yo female with PMHx significant for lung cancer s/p left lobectomy and chemotherapy, non-Hodgkin lymphoma s/p chemotherapy and splenectomy, DVT/PE, DJD who presented to the hospital with left sided back and flank pain, headache. -Abdominal pain, Left back/flank discomfort Plan: -CT chest/abd/pelvis reviewed - scarring noted in left lung; significant stool burden -Continue with Miralax 17g PO BID and recommend addition of enemas and one dose dulcolax to assist in mobilizing stool -Symptoms overall improved and patient tolerating diet without issue -Pulm, neuro, cardiology, ID consulted <LilianeZacarias anand V - Last Filed: 06/17/18 00:00> Objective - Vital Signs/Intake and Output Vital Signs (last 24 hours): Temp Pulse Resp BP Pulse Ox 98.1 F 64 20 167/95 H 98 06/16/18 16:33 06/16/18 17:00 06/16/18 16:33 06/16/18 17:00 06/16/18 16:33 Intake and Output: 06/16/18 06/17/18 18:59 06:59 Intake Total 720 Balance 720 - Medications Medications: Current Medications Acetaminophen/Butalbital/Caffeine (Fioricet) 1 tab PO Q4H PRN PRN Reason: Headache Last Admin: 06/15/18 20:45 Dose: 1 tab Arformoterol Tartrate (Brovana) 15 mcg IH [id number] [facility] Budesonide (Pulmicort Respules) 0.5 mg IH [id number] [facility] Famotidine (Pepcid) 20 mg PO HS [facility] Last Admin: 06/16/18 22:18 Dose: 20 mg Cefepime HCl (Maxipime 1gm) 1 gm in 100 mls @ 100 mls/hr IVPB Q8 [facility] PRN Reason: Protocol Stop: 06/20/18 14:01 Last Admin: 06/16/18 22:18 Dose: 100 mls/hr Metoprolol Tartrate (Lopressor) 50 mg PO BID [facility] Last Admin: 06/16/18 17:00 Dose: 50 mg Polyethylene Glycol (Miralax) 17 gm PO BID [facility] Last Admin: 06/16/18 16:59 Dose: 17 gm Rivaroxaban (Xarelto) 20 mg PO DIN [facility] PRN Reason: Protocol Last Admin: 06/16/18 17:00 Dose: 20 mg Topiramate (Topamax) 25 mg PO DAILY [facility] PRN Reason: Protocol Last Admin: 06/16/18 09:16 Dose: 25 mg - Labs Labs: 06/16/18 07:30 06/15/18 14:49 PT 25.1 SECONDS (9.4-12.5) H 06/14/18 17:00 INR 2.17 06/14/18 17:00 APTT 39.2 Seconds (25.1-36.5) H 06/14/18 17:00 Attending/Attestation - Attestation I have personally seen and examined this patient.: Yes I have fully participated in the care of the patient.: Yes I have reviewed all pertinent clinical information, including history, physical exam and plan: Yes Notes (Text): This is an addendum to GI progress report dictated by the GI Fellow.The patient was seen and examined earlier. Medical records, lab studies, imagings were reviewed. Last 24 hours events reviewed. Agreed with the above treatment plan as outlined in GI Fellow 's notes with the addition of the following Patient is on antibiotics left-sided back discomfort he just came was reviewed the left lung small patchy infiltrative changes was present even in the previous CT done a few months ago. That could be old scar Complaints of constipation we will restart MiraLAX 06/16/18 23:55
--- NOTE | 2018-06-16 17:11 | PN ---
Copied To: René Huston MD Attending MD: René Huston MD DATE: 06/16/2018 SUBJECTIVE: The patient is in bed in no acute distress, was seen early this morning. No fevers and chills. PHYSICAL EXAMINATION: VITAL SIGNS: Temperature is 98, blood pressure is 140/50, respiratory rate of 18, heart rate of 64. HEENT: Unremarkable. NECK: Supple. LUNGS: Have decreased breath sounds. HEART: Normal S1, S2. ABDOMINAL: Soft, nontender. LABORATORY EXAMINATION: Reveals the patient's white count is 9.4, hemoglobin of 12. Procalcitonin is less than 0.05 and BUN of 19, creatinine of 0.9 today and 2-5 WBCs. Microbiology reveals the urine cultures are gram-negative lan. The blood cultures are no growth and Dr. Mccarty' progress note is reviewed. ASSESSMENT AND PLAIN: This is a 77-year-old female admitted with nausea, vomiting, weakness with history of non-Hodgkin's lymphoma, status post chemotherapy, history of lung cancer, chronic obstructive lung disease, coronary artery disease, hypertension, transient ischemic attack x2, cerebrovascular accident, chronic back pain, arthritis, high cholesterol, deep vein thrombosis, spinal stenosis, admitted with nausea and vomiting, dizziness and headaches and found to have the patient with a history of splenectomy, ankle surgery and cardiac stents and #1 is a gram-negative lan, urinary tract infection and patient is currently on Maxipime. Waiting for identification and sensitivity. Today is day #2 and the patient has some mild urinary symptoms. She is also suffering from depression. She would benefit from psychiatric evaluation. Case discussed with Dr. Mccarty. René Huston MD : 06/16/2018 13:42:02
[2018-06-16] MEDS ORDERED: Budesonide 0.5 mg/2 ml Inhal Susp UD IH SCH (21:44)
[2018-06-16] MEDS ORDERED: Arformoterol 15 mcg/2 ml Inh Sol IH SCH (21:44)
--- NOTE | 2018-06-16 22:42 | CON ---
Copied To: Aaron Garcia MD Attending MD: Aaron Garcia MD DATE: 06/16/2018 REQUESTING PHYSICIAN: Marysol Mccarty MD REASON FOR CONSULTATION: Chest pain. HISTORY OF PRESENT ILLNESS: This is a 77-year-old woman well-known to me with a history of coronary artery disease status post prior PCI who was admitted with abdominal and chest discomfort. She states she has not felt well for a number of days and has been having retrosternal chest discomfort, occasionally this feels sharp and other times like a full fullness. She has also had nausea and headaches. Initial electrocardiogram and cardiac enzymes have been unremarkable. 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 She has also had lung cancer with recurrence, having required a lobectomy last year. She has a history of hyperlipidemia, hypertension, gastritis and intermittent depression, history of prior pulmonary emboli. MEDICATIONS: Her current medications include Brovana, Fioricet, metoprolol 50 mg b.i.d., Maxipime, MiraLax, Pepcid, Pulmicort inhaler, Topamax and Xarelto. PAST SURGICAL HISTORY: She has undergone prior right shoulder surgeries well as total abdominal hysterectomy with bilateral salpingo-oophorectomy. She has a history of compression fractures as well. ALLERGIES: SHE HAD A RASH WITH CLOPIDOGREL. SOCIAL HISTORY: She does not smoke or drink. FAMILY HISTORY: Both parents from age-related illness. REVIEW OF SYSTEMS: A 10-point review of systems is notable mainly for problem as mentioned above. PHYSICAL EXAMINATION: GENERAL: She is a chronically ill-appearing elderly woman. VITAL SIGNS: Her blood pressure 140/76 with pulse of 60, respirations 16. She is afebrile. HEENT: Normocephalic, atraumatic. NECK: Supple. No JVD noted. CHEST: Bilateral scattered rhonchi heard. HEART: PMI displaced laterally with systolic murmur in left sternal border. ABDOMEN: Soft, nontender with normoactive bowel sounds. EXTREMITIES: No edema. SKIN: Warm and dry. PSYCHIATRIC: Somewhat flat affect. NEUROLOGIC: Alert and oriented x3. No gross motor or sensory deficits appreciable. DIAGNOSTICS DATA: White count 9.4, hemoglobin and hematocrit 12.5 and 37.2 with platelet count of 321,000. PT/PTT 25.1 and 39.2. Venous blood gas revealed pH of 7.35, pCO2 of 51, pO2 of 43, potassium 4.6, BUN and creatinine 19 and 0.6. Troponin negative. CK of 56. The electrocardiogram reveals sinus rhythm, nonspecific ST-T abnormalities. Chest x-ray reveals normal cardiac silhouette with clear lung wiseman. IMPRESSION: Chest pain, some symptoms sound atypical, however, she does have no significant coronary disease in the past. Further evaluation would be reasonable. A prior stress test has shown mild ischemia which was chosen be treated conservatively. If this has become more extensive despite intensified medical therapy, a repeat catheterization would be appropriate. Rest of problems as noted. RECOMMENDATIONS: Ambulation is advised. If she has no recurrent chest pain, discharge home with a followup stress test as an outpatient this week would be planned. Continue risk factor control was advised. Aaron Garcia MD MTDSindy
[2018-06-17] MEDS: Cefepime 1gm in NS 100ml 1 GM/100 ML BAG IVPB SCH (06:30)
[2018-06-17] MEDS: Apap-Butalbital-Caffeine 325-50-40mg Tab PO PRN (08:08)
--- NOTE | 2018-06-17 08:13 | PN ---
Copied To: Garry Mccray MD Attending MD: Garry Mccray MD DATE: 06/16/2018 SUBJECTIVE: The patient is feeling well. No acute respiratory distress. The patient is comfortable talking without dyspnea. I have reviewed the CAT scan of the chest, which is finally available to me. There is in fact an abnormality noted at the left base. It is unclear whether this represents ground-glass opacification or other pathology, acute infiltrate cannot be excluded. No new changes in the situations are noted. I agree with Infectious Disease consultation. PHYSICAL EXAMINATION: GENERAL: The patient is comfortable in no acute respiratory distress. VITAL SIGNS: She is afebrile, pulse of 60, respiratory rate 16 with pressure 140/70, O2 sat 98%. HEENT: Head normocephalic, atraumatic. Eyes: PERRL. EOMs full. Conjunctivae pink. NECK: Supple. No JVD. No lymphadenopathy or bruit. CHEST: Clear to percussion and auscultation. ABDOMEN: Soft. Bowel sounds normoactive. : Within normal limits EXTREMITIES: Reveal no clubbing, cyanosis or edema. There is no Homans' sign. NEUROLOGIC: No focal findings. SKIN: Dry; intact LABORATORY FINDINGS: Chest x-ray and CAT scan reviewed as described above compared to last November when the chest x-ray appear to be normal. The chest x-ray and CAT scan appear to be normal. IMPRESSION: 1. Left lower lobe changes on CAT scan. This is acute, as CAT scan 6 months ago was negative 2. History of lung cancer. 3. Chronic obstructive pulmonary disease. 4. Headache and abdominal pain. PLAN: I agree with antibiotics. CAT scan will need to be repeated after treatment with antibiotics. If this fails to resolve then further intervention will be required. Discussed these findings with Dr. Mccarty in its entirety, we will follow along closely with you. Thank you for the opportunity to see this saran patient. Garry Mccray MD [facility]
--- NOTE | 2018-06-17 08:31 | PN ---
Copied To: Dayday Hall MD Attending MD: Dayday Hall MD DATE: 06/17/2018 PULMONARY NOTE SUBJECTIVE: The patient appears comfortable this morning. She is not short of breath at rest. PHYSICAL EXAMINATION: VITAL SIGNS: Temperature is 98.1, pulse 64, respirations 18, blood pressure 167/95. Oxygen saturation on room air is 98-100%. HEENT: Normocephalic, atraumatic. No JVD. CARDIOVASCULAR: Positive S1, S2. No S3 gallop. LUNGS: Clear bilaterally. EXTREMITIES: Mild edema. No cyanosis. No clubbing. Calves are nontender to palpation. GI: Abdomen is soft, nontender and nondistended. Bowel sounds are positive. SKIN: No acute rash. NEUROLOGIC: Limited at the present time. PERTINENT LABORATORY DATA: CAT scan of the chest was done on 06/14/2018 and reviewed. There is a small patchy infiltrate versus scar noted in the left lower lobe. There is no lymphadenopathy. Procalcitonin was done yesterday. It is negative at less than 0.05. CBC: White count 9.4K, hemoglobin 12.5, hematocrit 37.2, platelets of 321,000. IMPRESSION: 1. Gram-negative lan urinary tract infection. 2. Status post recent pneumonia. 3. History of lung cancer. Status post multiple surgeries. 4. History of non-Hodgkin's lymphoma. 5. Abdominal pain - resolving. PLAN: The patient appears comfortable this morning. She is not short of breath at rest. She offers no pulmonary symptoms. She does state to feeling much better overall. Her headache and abdominal discomfort are now resolving. I did review the laboratory data. There is a negative procalcitonin noted. However, on urine evaluation, there is a gram-negative lan present. The patient has been placed on appropriate antibiotic therapy as per Infectious Disease. There are no temperatures noted. There is no leukocytosis. GI and Cardiology evaluations are also noted. Clinical status of the patient does appear improved - compared to the initial presentation. I will continue with the current pulmonary medications. I will discuss the above with Dr. Mccarty. Dayday Hall MD [facility] # [id number] MTDS[facility]
[2018-06-17 08:35] VITALS: O2SAT 97
--- NOTE | 2018-06-17 10:09 | PN ---
Copied To: Aaron Garcia MD Attending MD: Aaron Garcia MD DATE: 06/17/2018 SUBJECTIVE: The patient is seen lying in bed on 5R. She is currently comfortable. She ambulated yesterday with no chest pain. CURRENT MEDICATIONS: Include Brovana, Fioricet, metoprolol 50 mg b.i.d., Maxipime, MiraLax, Pepcid, Pulmicort, Topamax and Xarelto. OBJECTIVE: GENERAL: She is an elderly woman, appears comfortable at rest. Her blood pressure is 136/80 with a pulse of 52, respirations are 16. She is afebrile. HEENT: No JVD. CHEST: Few scattered rhonchi. HEART: PMI displaced laterally with systolic murmur at the left sternal border. ABDOMEN: Soft, nontender. Normoactive bowel sounds. EXTREMITIES: No edema. DIAGNOSTIC DATA: No blood work pending this morning. IMPRESSION: 1. Recent chest pain, possible progressive coronary artery disease. 2. Known coronary artery disease, status post prior percutaneous coronary intervention. 3. History of prior pulmonary emboli. 4. Lymphoma, status post splenectomy. 5. History of lung cancer, status post lobectomy. RECOMMENDATIONS: Her current medications will be continued for now. She appears stable from a cardiac standpoint for discharge home. An outpatient stress test will be arranged. If there is evidence of worsening ischemia, a repeat catheterization can be contemplated. If her ischemia is mild, continue medical management would be most appropriate. We will continue provide ongoing followup as needed. Aaron Garcia MD
[2018-06-17] MEDS: POLYETHYLENE GLYCOL 3350 17 GM/Dose PACKET PO SCH (10:19)
--- NOTE | 2018-06-17 11:31 | CP.PCM.PN ---
<Ollie Mccarty - Last Filed: 06/17/18 12:04> Subjective - Date & Time of Evaluation Date of Evaluation: 06/17/18 Time of Evaluation: 08:00 - Subjective Subjective: Patient seen and examined at bedside in no acute distress. States abdominal/ flank pain has resolved and she is making bowel movements. Denies abdominal pain , nausea, vomiting, diarrhea, chest pain, shortness of breath, headache, fevers , chills. Objective - Vital Signs/Intake and Output Vital Signs (last 24 hours): Temp Pulse Resp BP Pulse Ox 98.4 F 62 18 130/79 97 06/17/18 06:00 06/17/18 10:19 06/17/18 06:00 06/17/18 10:19 06/17/18 06:00 Intake and Output: 06/17/18 06/17/18 06:59 18:59 Intake Total 240 Balance 240 - Medications Medications: Current Medications Acetaminophen/Butalbital/Caffeine (Fioricet) 1 tab PO Q4H PRN PRN Reason: Headache Last Admin: 06/17/18 08:08 Dose: 1 tab Arformoterol Tartrate (Brovana) 15 mcg IH [id number] [facility] Last Admin: 06/17/18 07:35 Dose: 15 mcg Budesonide (Pulmicort Respules) 0.5 mg IH [id number] [facility] Last Admin: 06/17/18 07:36 Dose: 0.5 mg Famotidine (Pepcid) 20 mg PO HS [facility] Last Admin: 06/16/18 22:18 Dose: 20 mg Cefepime HCl (Maxipime 1gm) 1 gm in 100 mls @ 100 mls/hr IVPB Q8 [facility] PRN Reason: Protocol Stop: 06/20/18 14:01 Last Admin: 06/17/18 06:30 Dose: 100 mls/hr Metoprolol Tartrate (Lopressor) 50 mg PO BID [facility] Last Admin: 06/17/18 10:19 Dose: 50 mg Polyethylene Glycol (Miralax) 17 gm PO BID [facility] Last Admin: 06/17/18 10:19 Dose: 17 gm Rivaroxaban (Xarelto) 20 mg PO DIN [facility] PRN Reason: Protocol Last Admin: 06/16/18 17:00 Dose: 20 mg Topiramate (Topamax) 25 mg PO DAILY [facility] PRN Reason: Protocol Last Admin: 06/17/18 10:19 Dose: 25 mg - Labs Labs: 06/16/18 07:30 06/15/18 14:49 PT 25.1 SECONDS (9.4-12.5) H 06/14/18 17:00 INR 2.17 06/14/18 17:00 APTT 39.2 Seconds (25.1-36.5) H 06/14/18 17:00 - Constitutional Appears: Non-toxic, No Acute Distress - Head Exam Head Exam: ATRAUMATIC, NORMAL INSPECTION, NORMOCEPHALIC - Eye Exam Eye Exam: EOMI, Normal appearance - ENT Exam ENT Exam: Mucous Membranes Moist - Respiratory Exam Respiratory Exam: Clear to Ausculation Bilateral - Cardiovascular Exam Cardiovascular Exam: REGULAR RHYTHM, +S1, +S2 - GI/Abdominal Exam GI & Abdominal Exam: Soft, Normal Bowel Sounds - Extremities Exam Extremities Exam: Normal Inspection - Back Exam Back Exam: NORMAL INSPECTION - Neurological Exam Neurological Exam: Alert, Awake, Oriented x3 - Psychiatric Exam Psychiatric exam: Normal Affect, Normal Mood - Skin Skin Exam: Intact, Normal Color, Warm Assessment and Plan - Assessment and Plan (Free Text) Assessment: Patient is a 71yo female with PMHx significant for lung cancer s/p left lobectomy and chemotherapy, non-Hodgkin lymphoma s/p chemotherapy and splenectomy, DVT/PE, DJD who presented to the hospital with left sided back and flank pain, headache. -Abdominal pain, Left back/flank discomfort Plan: -CT chest/abd/pelvis reveals significant stool burden -Continue with Miralax 17g PO BID -Symptoms have resolved as per patient, and is moving her bowels -Pulm, neuro, cardiology, ID consulted <Zacarias Momin V - Last Filed: 06/17/18 19:40> Objective - Vital Signs/Intake and Output Vital Signs (last 24 hours): Temp Pulse Resp BP Pulse Ox 98.1 F 59 L 20 114/91 H 97 06/17/18 14:00 06/17/18 14:00 06/17/18 14:00 06/17/18 14:00 06/17/18 14:00 Intake and Output: 06/17/18 06/18/18 18:59 06:59 Intake Total 720 Balance 720 - Labs Labs: 06/16/18 07:30 06/15/18 14:49 PT 25.1 SECONDS (9.4-12.5) H 06/14/18 17:00 INR 2.17 06/14/18 17:00 APTT 39.2 Seconds (25.1-36.5) H 06/14/18 17:00 Attending/Attestation - Attestation I have personally seen and examined this patient.: Yes I have fully participated in the care of the patient.: Yes I have reviewed all pertinent clinical information, including history, physical exam and plan: Yes Notes (Text): This is an addendum to GI progress report dictated by the GI Fellow.The patient was seen and examined earlier. Medical records, lab studies, imagings were reviewed. Last 24 hours events reviewed. Agreed with the above treatment plan as outlined in GI Fellow 's notes with the addition of the following Patient is moving her bowels on MiraLAX Discussed with Dr. Lul RIZVI today 06/17/18 19:40
[2018-06-17] MEDS ORDERED: Cefepime 1gm in NS 100ml 1 GM/100 ML BAG IVPB SCH (12:45)
[2018-06-17 14:12] VITALS: BP 114/91; PULSE 59; RESP 20; TEMP 98.1
--- NOTE | 2018-06-17 17:02 | CP.PCM.PN ---
Subjective - Date & Time of Evaluation Date of Evaluation: 06/17/18 Time of Evaluation: 13:05 - Subjective Subjective: No fevers, not in distress, no more urinary symptoms. 7 Objective - Vital Signs/Intake and Output Vital Signs (last 24 hours): Temp Pulse Resp BP Pulse Ox 98.1 F 59 L 20 114/91 H 97 06/17/18 14:00 06/17/18 14:00 06/17/18 14:00 06/17/18 14:00 06/17/18 14:00 Intake and Output: 06/17/18 06/17/18 06:59 18:59 Intake Total 240 720 Balance 240 720 - Labs Labs: 06/16/18 07:30 06/15/18 14:49 PT 25.1 SECONDS (9.4-12.5) H 06/14/18 17:00 INR 2.17 06/14/18 17:00 APTT 39.2 Seconds (25.1-36.5) H 06/14/18 17:00 - Constitutional Appears: Chronically Ill - Head Exam Head Exam: NORMAL INSPECTION - Respiratory Exam Respiratory Exam: Decreased Breath Sounds - Cardiovascular Exam Cardiovascular Exam: +S1, +S2 - GI/Abdominal Exam GI & Abdominal Exam: Soft. absent: Tenderness Assessment and Plan - Assessment and Plan (Free Text) Plan: Assessment UTI with gram negative bacilli history of lung CA non-Hodgkin lymphoma S/P chemotherapy COPD HTN TIA CVA chronic back pain with spinal stenosis DVT dyslipidemia Plan Currently on Cefepime; can switch to PO Cefpodoxime for another 7-10 days with outpatient follow up with PMD - discussed with patient
[2018-06-17] MEDS ORDERED: Cefpodoxime (Vantin) 100 mg Tab PO SCH (22:00)
--- NOTE | 2018-06-18 01:01 | CON ---
Copied To: Ryan Jaimes MD/ PhD Attending MD: Ryan Jaimes MD/ PhD DATE: 06/17/2018 IDENTIFYING INFORMATION: The patient is a 77-year-old white female who indicated that for the past 48 hours she had been feeling of gastric distress, headache, backache, nausea, occasional chills. She has a significant medical history of a lymphoma, splenectomy, lung cancer with two surgeries over the past several years. She has been treated by Dr. Contreras in [facility]. She has had a history of pneumonia and recently she had been on vacation visiting family in [place]. She has a history of coronary artery disease, restless legs syndrome, hyperlipidemia, history of gastritis and a history of chronic pain syndrome. She is a [place] of [place] who at age 8 came to [place], [place], where she subsequently grew up. She had been for a number of years, was , has had two children that , one of a vascular accident, and the daughter that within the past few years. That daughter leaves behind a disabled child that the patient worries about (age 8) and whose father (the patient's ex son-in-law) has remarried but has recently had a brain aneurysm and his situation is probably critical. The patient was able to relay a number of adverse events in her life and was tearful. She, however, is not suicidal or homicidal. She is worried about her grandchild, still grieving over the loss of her children (one in childhood of cerebral palsy). She appears to have a limited social involvement here. She has one sister that lives in [facility], that sister reportedly wants to move out there but the patient finds that it is too cold and she is comfortable here in the [place] environment. This however leaves her alone. She has one other sister. There is no familial psychiatric history. The patient herself denied a familial psychiatric or substance abuse history. A CBC and differential showed slightly elevated lymphocyte percent of 40.6 and monocyte percent 10.6. Urinalysis showed trace blood and trace leukocyte esterase. A biochemical profile showed lowered procalcitonin at less than 0.05. Other indices were within normal limits. The patient is presently being maintained on Brovana, Fioricet p.r.n. for headache, Lopressor, Maxipime, MiraLax, Pepcid, Pulmicort, Topamax, Xarelto. The patient will presently be started on Zoloft. She has been referred to a local therapist for supportive therapy. The patient on interview was alert, oriented to three spheres, tearful, denied depression but looked quite upset and withdrawn. She denied suicidality or homicidality or psychotic ideation. Her insight and judgment seemed to be intact. DIAGNOSIS: Adjustment disorder with depressed features. Thank you as always for this consultation. Ryan Jaimes MD/ PhD
--- NOTE | 2018-06-18 15:37 | DS ---
Copied To: Marysol Mccarty MD Attending MD: Marysol Mccarty MD A 77-year-old female admitted to [facility] for abdominal discomfort, myalgia, arthralgia, and headache. While in the hospital, the patient was seen by Infectious Disease, Cardiology, Pulmonary, and GI. Cultures of the blood were negative x2. Urine culture grew out gram-negative rods less than 10,000. Patient was placed on cefepime by Infectious Disease. Subsequently, cleared for discharge, to continue the treatment with Vantin 100 mg every 12 hours for another 7 days. She was cleared by Infectious Disease and Pulmonary as well as GI and Psychiatry for outpatient followup. She would continue on her Lopressor 50 mg b.i.d., MiraLax 17 g b.i.d., Pepcid 20 mg at bedtime. She would be on her Spiriva at home, Topamax 25 mg daily, Xarelto 20 mg daily, and 50 mg daily. As per communication, Psychiatry felt that the patient could be discharged home, to be followed up with her psychology support program as well as a psychiatry consult. Findings were discussed with the patient. Pulmonary felt that findings on the CAT scan done of the chest could be chronic in nature. There were some scarred areas, these would be followed up by Pulmonary with the patient. All these clinical findings were discussed with the patient at length and will be followed up as an outpatient. The patient was strongly encouraged to follow up. Marysol Mccarty MD
== END 2018-06-17 15:27 | disposition home or self-care (01) | DRG 690 ==
LOC: ED 15:33 → ERH 20:36 → 5RNO 21:58 → OBSVTOIN 06-15 14:06
PROVIDERS: ADMIT Internal Medicine; ATTEND Internal Medicine
DX: N39.0 Urinary tract infection, site not specified (principal); C85.90 Non-Hodgkin lymphoma, unspecified, unspecified site; B96.89 Other specified bacterial agents as the cause of diseases classified elsewhere; G89.4 Chronic pain syndrome; M48.00 Spinal stenosis, site unspecified; I25.10 Atherosclerotic heart disease of native coronary artery without angina pectoris; G25.81 Restless legs syndrome; J44.9 Chronic obstructive pulmonary disease, unspecified; I10 Essential (primary) hypertension; E78.00 Pure hypercholesterolemia, unspecified; F43.21 Adjustment disorder with depressed mood; K59.00 Constipation, unspecified; K21.9 Gastro-esophageal reflux disease without esophagitis; Z86.73 Personal history of transient ischemic attack (TIA), and cerebral infarction without residual deficits; Z86.711 Personal history of pulmonary embolism; Z87.01 Personal history of pneumonia (recurrent); Z85.118 Personal history of other malignant neoplasm of bronchus and lung; Z92.21 Personal history of antineoplastic chemotherapy; Z95.5 Presence of coronary angioplasty implant and graft; Z90.81 Acquired absence of spleen; Z87.891 Personal history of nicotine dependence; Z79.01 Long term (current) use of anticoagulants; Z79.51 Long term (current) use of inhaled steroids

== ENCOUNTER 2018-08-21 03:46 | Inpatient (IN) | payer MEDICARE, OTHER ==
[2018-08-21 03:47] VITALS: BMI 31.3
[2018-08-21] MEDS ORDERED: Vancomycin 1gm in NS 250ml 1 GM/250 ML BAG IVPB STA (04:15)
--- NOTE | 2018-08-21 04:24 | ED PDOC ---
Arrival/HPI - General Chief Complaint: Lower Extremity Problem/Injury Time Seen by Provider: 08/21/18 04:01 Historian: Patient - History of Present Illness Narrative History of Present Illness (Text): 08/21/18 04:22 77 year old female, whose past medical history includes nonhogkins's lymphoma, nonsmall cell lung CA, hypertension, and DVT, presents with bug bite to left leg. Patient states she got the bite a few days ago and went to her production operations engineer who gave her steroid cream and antibiotic. Patient states it didn't help, and has been progressively getting worse. Patient denies any fevers, chills, headache, dizziness, chest pain, shortness of breath, cough, abdominal pain, nausea, vomiting, diarrhea, back pain, neck pain, urinary/bowel changes, or any other complaint. Time/Duration: Prior to Arrival Past Medical History - Provider Review Nursing Documentation Reviewed: Yes - Infectious Disease Hx of Infectious Diseases: None - Tetanus Immunization Tetanus Immunization: Unknown - Cardiac Hx Cardiac Disorders: Yes Hx Hypertension: Yes Other/Comment: h/o blood clots/L groin - Pulmonary Hx Respiratory Disorders: Yes Hx Chronic Obstructive Pulmonary Disease (COPD): Yes Hx Pneumonia: Yes - Neurological Hx Neurological Disorder: Yes Hx Migraine: Yes Hx Transient Ischemic Attacks (TIA): Yes - HEENT Hx HEENT Disorder: Yes Hx Cataracts: Yes (b/l sx) Hx Glaucoma: Yes - Renal Hx Renal Disorder: No Other/Comment: polycystic kidney disease - Endocrine/Metabolic Hx Endocrine Disorders: No - Hematological/Oncological Hx Blood Disorders: Yes Hx Cancer: Yes (non hodgkins lymphoma, spleen, L lung) Hx Chemotherapy: Yes Other/Comment: PE, pt dx with ca spleen, spleen removed dx with non hodkins lymphoma, pt dx with ca left lung, two sx's to left lower lobe - Integumentary Hx Dermatological Disorder: No - Musculoskeletal/Rheumatological Hx Musculoskeletal Disorders: Yes Hx Arthritis: Yes Hx Back Pain: Yes Hx Falls: No Hx Spinal Stenosis: Yes Hx Unsteady Gait: Yes - Gastrointestinal Hx Gastrointestinal Disorders: Yes Hx Gastroesophageal Reflux: Yes Other/Comment: "esophageal problems," GI bleed - Genitourinary/Gynecological Hx Genitourinary Disorders: Yes Hx Urinary Tract Infection: Yes - Psychiatric Hx Psychophysiologic Disorder: Yes Hx Anxiety: Yes Hx Substance Use: No - Past Surgical History Past Surgical History: No Previous - Surgical History Hx Cardiac Catheterization: Yes Hx Coronary Stent: Yes (x2) Hx Hysterectomy: Yes Hx Orthopedic Surgery: Yes (right shoulder rotator cuff, R ankle) Hx Splenectomy: Yes Other/Comment: partial lobectomy left lung - Anesthesia Hx Anesthesia: Yes Hx Anesthesia Reactions: No Hx Malignant Hyperthermia: No - Suicidal Assessment Feels Threatened In Home Enviroment: No Family/Social History - Physician Review Nursing Documentation Reviewed: Yes Family/Social History: No Known Family HX Smoking Status: Never Smoked Hx Alcohol Use: No Hx Substance Use: No Hx Substance Use Treatment: No Allergies/Home Meds Allergies/Adverse Reactions: Allergies clopidogrel Allergy (Severe, Verified 09/05/16 02:34) RASH Home Medications: Home Meds Medication Instructions Recorded Confirmed RX: Metoprolol Tartrate 50 mg PO BID 06/16/13 08/21/18 RX: Zolpidem [Ambien] 10 mg PO HS PRN 06/30/16 08/21/18 RX: Rivaroxaban [Xarelto] 20 mg PO DAILY 04/16/17 08/21/18 RX: Esomeprazole Magnesium [Nexium] 1 tab PO DAILY 06/14/18 08/21/18 RX: Famotidine [Pepcid] 1 tab PO HS 06/14/18 08/21/18 Carbidopa/Levodopa [Rytary ER 23.75 mg PO BID 08/21/18 08/21/18 23.75 mg-95 mg Cap] Lifitegrast [Xiidra] 1 drop BOTHEYES DAILY 08/21/18 08/21/18 Polyethylene Glycol 3350 [Miralax] 1 packet PO DAILY 08/21/18 08/21/18 RX: Cephalexin [Keflex] 500 mg PO Q6H 08/21/18 08/21/18 RX: Clobetasol 0.05% [Temovate 1 oin TOP TID 08/21/18 08/21/18 0.05%] RX: Furosemide [Lasix] 20 mg PO PRN PRN 08/21/18 08/21/18 Review of Systems - Physician Review All systems were reviewed & negative as marked: Yes - Review of Systems Constitutional: absent: Fevers, Night Sweats Respiratory: absent: SOB, Cough Gastrointestinal: absent: Abdominal Pain, Diarrhea, Nausea, Vomiting Genitourinary Female: absent: Urine Output Changes Musculoskeletal: absent: Back Pain, Neck Pain Skin: Rash Neurological: absent: Headache, Dizziness Physical Exam Vital Signs Reviewed: Yes Vital Signs Temp Pulse Resp BP Pulse Ox 08/21/18 03:55 97.7 F 78 19 171/101 H 98 Temperature: Afebrile Blood Pressure: Hypertensive Pulse: Regular Respiratory Rate: Normal Appearance: Positive for: Well-Appearing, Non-Toxic, Comfortable Pain Distress: None Mental Status: Positive for: Alert and Oriented X 3 - Systems Exam Head: Present: Atraumatic, Normocephalic Pupils: Present: PERRL Extroacular Muscles: Present: EOMI Conjunctiva: Present: Normal Mouth: Present: Moist Mucous Membranes Neck: Present: Normal Range of Motion Respiratory/Chest: Present: Clear to Auscultation, Good Air Exchange. No: Respiratory Distress, Accessory Muscle Use Cardiovascular: Present: Regular Rate and Rhythm, Normal S1, S2. No: Murmurs Abdomen: No: Tenderness, Distention, Peritoneal Signs Back: Present: Normal Inspection Upper Extremity: Present: Normal Inspection. No: Cyanosis, Edema Lower Extremity: Present: Erythema (2 spots, 5cm and 3cm in diameter ) Neurological: Present: GCS=15, CN II-XII Intact, Speech Normal Skin: Present: Warm, Dry, Normal Color, Other (2 areas of cellulitis left calf). No: Rashes Psychiatric: Present: Alert, Oriented x 3, Normal Insight, Normal Concentration Medical Decision Making ED Course and Treatment: 08/21/18 04:27 Impression: 77 year old female presents with bug bite. Plan: -- Vistaril -- Vancomycin -- Reassess and disposition Prior Visits: Notes and results from previous visits were reviewed. Progress Notes: case d/w dr figueroa will obs for iv ab as pt failed out pt tx 08/21/18 05:49 - Medication Orders Current Medication Orders: Vancomycin HCl (Vancomycin 1gm) 1 gm in 250 mls @ 167 mls/hr IVPB STAT STA; Protocol Stop: 08/21/18 05:44 Discontinued Medications Hydroxyzine Pamoate (Vistaril) 25 mg PO STAT STA; Protocol Stop: 08/21/18 04:15 - Scribe Statement The provider has reviewed the documentation as recorded by the Cesar Wong Provider Scribe Attestation: All medical record entries made by the Scribe were at my direction and personally dictated by me. I have reviewed the chart and agree that the record accurately reflects my personal performance of the history, physical exam, medical decision making, and the department course for this patient. I have also personally directed, reviewed, and agree with the discharge instructions and disposition. Disposition/Present on Arrival - Present on Arrival Any Indicators Present on Arrival: No History of DVT/PE: No History of Uncontrolled Diabetes: No Urinary Catheter: No History of Decub. Ulcer: No History Surgical Site Infection Following: None - Disposition Have Diagnosis and Disposition been Completed?: Yes Diagnosis: Cellulitis Disposition: HOSPITALIZED Disposition Time: 05:49 Condition: GOOD Discharge Instructions (ExitCare): Cellulitis (ED) Forms: [employer] (Bengali)
[2018-08-21 05:01] LABS: ALB/GLOB RATIO 1.4 (1.1-1.8); ALBUMIN 4.4 g/dL (3.0-4.8); ALT/SGPT 25 U/L (7-56); AST/SGOT 25 U/L (14-36); BLOOD UREA NITROGEN 29 mg/dL (7-21); CALCIUM 9.3 mg/dL (8.4-10.5); GFR NON-AFRICAN AMERICAN 54
[2018-08-21 05:09] LABS: BASO # 0.03 K/mm3 (0.0-2.0); BASO % 0.3 % (0.0-3.0); EOS % 9.2 % (1.5-5.0); GRAN # 4.91 (1.4-6.5); GRAN % 43.4 % (50.0-68.0); HEMOGLOBIN 13.2 g/dL (12.0-16.0); LYMPH # 4.3 (1.2-3.4); LYMPH % 37.9 % (22.0-35.0); MEAN CELL VOLUME 93.2 fl (80.0-105.0); MEAN CORPUSCULAR HGB CONC 33.2 g/dl (31.0-37.0); MEAN PLATELET VOLUME 10.5 fl (7.0-11.0); MONO % 9.2 % (1.0-6.0); RBC 4.26 10^6/uL (3.5-6.1); RED CELL DISTRIBUTION WIDTH 14.6 % (11.5-14.5); WHITE BLOOD COUNT 11.3 10^3/ul (4.5-11.0)
[2018-08-21] MEDS ORDERED: Piperacillin/Tazobact 3.375 gm 100 ML IVPB STA (05:36)
[2018-08-21] MEDS: LEVODOPA PO SCH ×2 (10:30→17:10)
[2018-08-21] MEDS: CARBIDOPA PO SCH ×2 (10:30→17:10)
[2018-08-21] MEDS: POLYETHYLENE GLYCOL 3350 17 GM/Dose PACKET PO SCH (10:30)
[2018-08-21] MEDS: Apap-Butalbital-Caffeine 325-50-40mg Tab PO PRN (12:44)
[2018-08-21] MEDS ORDERED: Pneumococcal 23-Valent Vaccine IM ONE (13:28)
[2018-08-21] MEDS ORDERED: Influenza Vaccine 60 mcg/0.5 mL SYR (4YR UP) IM ONE (13:28)
--- NOTE | 2018-08-21 17:03 | CP.PCM.CON ---
History of Present Illness - History of Present Illness History of Present Illness: 77 year old female with PMH of UTI with gram negative bacilli, history of lung CA, non-Hodgkin lymphoma S/P chemotherapy, COPD, HTN, TIA, CVA, chronic back pain with spinal stenosis, DVT, dyslipidemia [place] [facility] [place] of pain and swelling of the left leg associated with spots. She felt that something probably bit her while she was at a friend's house over the weekend and was walking in the backyard which was in a wooded area. It started about 2-3 days ago and she went to her recycle driver and gave her creams and Keflex but she did not improve. She denies fever or chills, no nausea or vomiting, has mild headache, no chest pain, no SOB, no cough or colds, no diarrhea, no dysuria. Infectious Diseases consult is requested to further evaluate and manage. Review of Systems - Review of Systems All systems: reviewed and no additional remarkable complaints except (as per HPI) Past Patient History - Infectious Disease Hx of Infectious Diseases: None - Tetanus Immunizations Tetanus Immunization: Unknown - Past Social History Smoking Status: Never Smoked - CARDIAC Hx Cardiac Disorders: Yes Hx Hypertension: Yes Other/Comment: h/o blood clots/L groin - PULMONARY Hx Respiratory Disorders: Yes Hx Chronic Obstructive Pulmonary Disease (COPD): Yes Hx Pneumonia: Yes - NEUROLOGICAL Hx Neurological Disorder: Yes Hx Migraine: Yes Hx Transient Ischemic Attacks (TIA): Yes - HEENT Hx HEENT Problems: Yes Hx Cataracts: Yes (b/l sx) Hx Glaucoma: Yes - RENAL Hx Chronic Kidney Disease: No Other/Comment: polycystic kidney disease - ENDOCRINE/METABOLIC Hx Endocrine Disorders: No - HEMATOLOGICAL/ONCOLOGICAL Hx Blood Disorders: Yes Hx Cancer: Yes (non hodgkins lymphoma, spleen, L lung) Hx Chemotherapy: Yes Other/Comment: PE, pt dx with ca spleen, spleen removed dx with non hodkins lymphoma, pt dx with ca left lung, two sx's to left lower lobe - INTEGUMENTARY Hx Dermatological Problems: No - MUSCULOSKELETAL/RHEUMATOLOGICAL Hx Musculoskeletal Disorders: Yes Hx Arthritis: Yes Hx Back Pain: Yes Hx Falls: No Hx Spinal Stenosis: Yes Hx Unsteady Gait: Yes - GASTROINTESTINAL Hx Gastrointestinal Disorders: Yes Hx Gastroesophageal Reflux: Yes Other/Comment: "esophageal problems," GI bleed - GENITOURINARY/GYNECOLOGICAL Hx Genitourinary Disorders: Yes Hx Urinary Tract Infection: Yes - PSYCHIATRIC Hx Psychophysiologic Disorder: Yes Hx Anxiety: Yes Hx Substance Use: No - SURGICAL HISTORY Hx Cardiac Catheterization: Yes Hx Coronary Stent: Yes (x2) Hx Hysterectomy: Yes Hx Orthopedic Surgery: Yes (right shoulder rotator cuff, R ankle) Hx Splenectomy: Yes Other/Comment: partial lobectomy left lung - ANESTHESIA Hx Anesthesia: Yes Hx Anesthesia Reactions: No Hx Malignant Hyperthermia: No Meds Allergies/Adverse Reactions: Allergies Allergy/AdvReac Type Severity Reaction Status Date / Time clopidogrel Allergy Severe RASH Verified 09/05/16 02:34 - Medications Medications: Current Medications Acetaminophen (Tylenol 325mg Tab) 650 mg PO Q4H PRN PRN Reason: Fever >100.5 F Last Admin: 08/21/18 05:52 Dose: 650 mg Ceftaroline Fosamil 400 mg/ (Sodium Chloride) 100 mls @ 100 mls/hr IVPB Q12 [facility]; Protocol Stop: 08/28/18 10:01 Physical Exam - Constitutional Appears: Chronically Ill - Head Exam Head Exam: NORMAL INSPECTION - Respiratory Exam Respiratory Exam: Decreased Breath Sounds - Cardiovascular Exam Cardiovascular Exam: +S1, +S2 - GI/Abdominal Exam GI & Abdominal Exam: Soft. absent: Tenderness - Extremities Exam Additional comments: left leg with some swelling and two dark spots 7x6 cm with some tenderness Results - Vital Signs Recent Vital Signs: Last Vital Signs Temp 97.7 F 08/21/18 03:55 Pulse 80 08/21/18 05:45 Resp 18 08/21/18 05:45 BP 125/83 08/21/18 05:45 Pulse Ox 100 08/21/18 05:45 - Labs Result Diagrams: 08/21/18 04:15 08/21/18 04:15 Labs: Laboratory Results - last 24 hr 08/21/18 08/21/18 04:15 04:15 WBC 11.3 H D RBC 4.26 Hgb 13.2 Hct 39.7 MCV 93.2 MCH 31.0 MCHC 33.2 RDW 14.6 H Plt Count 308 MPV 10.5 Gran % 43.4 L Lymph % (Auto) 37.9 H [place] % (Auto) 9.2 H Eos % (Auto) 9.2 H Baso % (Auto) 0.3 Gran # 4.91 Lymph # (Auto) 4.3 H [place] # (Auto) 1.0 H Eos # (Auto) 1.0 H Baso # (Auto) 0.03 Sodium 138 Potassium 4.3 Chloride 102 Carbon Dioxide 27 Anion Gap 14 BUN 29 H Creatinine 1.0 Est GFR ( Amer) > 60 Est GFR (Non-Af Amer) 54 Random Glucose 116 H Calcium 9.3 Total Bilirubin 0.4 AST 25 ALT 25 Alkaline Phosphatase 98 Total Protein 7.6 Albumin 4.4 Globulin 3.2 Albumin/Globulin Ratio 1.4 Assessment & Plan - Assessment and Plan (Free Text) Plan: Assessment left lower extremity skin and skin structure infection, R/O Lyme disease, R/O R ickettsial disease history of UTI with gram negative bacilli history of lung CA non-Hodgkin lymphoma S/P chemotherapy COPD HTN TIA CVA chronic back pain with spinal stenosis DVT dyslipidemia Plan Will start patient Rocephin and Doxycycline and will follow up blood cx and will monitor clinical response
[2018-08-21] MEDS: cefTRIAXone 1 gm 1 GM/100 ML BAG IVPB SCH (17:14)
--- NOTE | 2018-08-21 18:05 | CP.PCM.PN ---
<BandarDorys - Last Filed: 08/22/18 00:11> Subjective - Date & Time of Evaluation Date of Evaluation: 08/21/18 Time of Evaluation: 18:05 - Subjective Subjective: Podiatry Consult Note for Dr. Smith: 77 yo female patient, with PMHx of Nonhodgkins lymphoma, nonsmall cell lung CA, HTN who presents with left leg localized erythema. Patient states she thinks she was bitten by a bug a few days ago. She went to a cooling pipe inspector who dispensed an antibiotic and steroid cream. She states that since then it has gotten more red and more itchy. She denies any N/V/F/SOB/CP. PMHx: as above ALL: NKDA Objective - Vital Signs/Intake and Output Vital Signs (last 24 hours): Temp Pulse Resp BP Pulse Ox 97.9 F 66 18 154/122 H 98 08/21/18 17:31 08/21/18 17:31 08/21/18 17:31 08/21/18 17:31 08/21/18 17:31 - Medications Medications: Current Medications Acetaminophen (Tylenol 325mg Tab) 650 mg PO Q4H PRN PRN Reason: Fever >100.5 F Last Admin: 08/21/18 05:52 Dose: 650 mg Acetaminophen/Butalbital/Caffeine (Fioricet) 1 tab PO Q4H PRN PRN Reason: Migraine headache Last Admin: 08/21/18 12:44 Dose: 1 tab Doxycycline Hyclate (Doryx) 100 mg PO Q12 [facility]; Protocol Famotidine (Pepcid) 20 mg PO HS [facility] Ceftriaxone Sodium (Rocephin 1 Gram Ivpb) 1 gm in 100 mls @ 100 mls/hr IVPB DAILY [facility]; Protocol Last Admin: 08/21/18 17:14 Dose: 100 mls/hr Metoprolol Tartrate (Lopressor) 50 mg PO BID [facility] Last Admin: 08/21/18 17:11 Dose: 50 mg Carbidopa/Levodopa [ Rytary Er 23.75 Mg- 95 Mg] Home 23.75 mg PO BID [facility] Last Admin: 08/21/18 17:10 Dose: Not Given Polyethylene Glycol (Miralax) 17 gm PO DAILY [facility] Last Admin: 08/21/18 10:30 Dose: 17 gm Rivaroxaban (Xarelto) 20 mg PO DAILY [facility]; Protocol Last Admin: 08/21/18 10:30 Dose: 20 mg - Labs Labs: 08/21/18 04:15 08/21/18 04:15 - Constitutional Appears: Well, Non-toxic, No Acute Distress - Head Exam Head Exam: ATRAUMATIC, NORMOCEPHALIC - Extremities Exam Additional comments: Vascular: DP/PT palpable, CFT < 3 seconds, TG warm to warm bilaterally with increased warmth to erythematous lesions, no edema noted Ortho: MMT 4/5 in all compartments, no gross deformities noted Neuro: Gross sensation intact Derm: Two localized erythematous lesions noted to proximal lateral aspect of leg with vascular appearance. No open lesions noted, no purulence, no drainage appreciated. - Neurological Exam Neurological Exam: Alert, Awake, Oriented x3 - Psychiatric Exam Psychiatric exam: Normal Affect, Normal Mood Assessment and Plan - Assessment and Plan (Free Text) Assessment: 77 yo female patient, with PMHx of Nonhodgkins lymphoma, nonsmall cell lung CA, HTN who presents with left leg localized erythema. Plan: Patient seen and evaluated with Dr. Smith VSS, WBC 11.3 Plan for bedside biopsy tomorrow of erythematous lesion with Dr. Smith Continue with IV abx per ID reccs Podiatry will continue to follow will patient is in house Thank you for the consult. <Rola Smith - Last Filed: 08/22/18 17:11> Objective - Vital Signs/Intake and Output Vital Signs (last 24 hours): Temp Pulse Resp BP Pulse Ox 97.4 F L 69 18 141/74 98 08/22/18 16:46 08/22/18 16:46 08/22/18 16:46 08/22/18 16:46 08/22/18 16:46 Intake and Output: 08/22/18 08/22/18 06:59 18:59 Intake Total 1200 240 Balance 1200 240 - Medications Medications: Current Medications Acetaminophen (Tylenol 325mg Tab) 650 mg PO Q4H PRN PRN Reason: Fever >100.5 F Last Admin: 08/21/18 05:52 Dose: 650 mg Acetaminophen/Butalbital/Caffeine (Fioricet) 1 tab PO Q4H PRN PRN Reason: Migraine headache Last Admin: 08/21/18 12:44 Dose: 1 tab Desoximetasone (Topicort 0.05%) 0 ea TOP BID [facility] Doxycycline Hyclate (Doryx) 100 mg PO Q12 [facility]; Protocol Last Admin: 08/22/18 10:34 Dose: 100 mg Famotidine (Pepcid) 20 mg PO HS [facility] Last Admin: 08/21/18 22:35 Dose: 20 mg Ceftriaxone Sodium (Rocephin 1 Gram Ivpb) 1 gm in 100 mls @ 100 mls/hr IVPB DAILY [facility]; Protocol Last Admin: 08/22/18 10:38 Dose: 100 mls/hr Metoprolol Tartrate (Lopressor) 50 mg PO BID [facility] Last Admin: 08/22/18 10:34 Dose: 50 mg Carbidopa/Levodopa [ Rytary Er 23.75 Mg- 95 Mg] Home 23.75 mg PO BID [facility] Last Admin: 08/22/18 10:33 Dose: Not Given Polyethylene Glycol (Miralax) 17 gm PO DAILY [facility] Last Admin: 08/22/18 10:38 Dose: 17 gm Rivaroxaban (Xarelto) 20 mg PO DAILY [facility]; Protocol Last Admin: 08/22/18 10:39 Dose: 20 mg - Labs Labs: 08/22/18 07:00 08/22/18 07:00 Attending/Attestation - Attestation I have personally seen and examined this patient.: Yes I have fully participated in the care of the patient.: Yes I have reviewed all pertinent clinical information, including history, physical exam and plan: Yes Notes (Text): 08/22/18 17:10 r/o spider bite with underlying vasculitis; biopsy done; if not contra-indicated would suggest a medrol dose pack
--- NOTE | 2018-08-21 22:08 | HP ---
HISTORY OF PRESENT ILLNESS: A 77-year-old female presented to [place] [facility]. She states that for the last day to day and a half, she has had a red blotchy rash on her lower left calf. She said that she went to see the concrete precast moulder who told her that may be it was related to bug bite or wasp bite and gave her an antibiotic. She came to the emergency room because of some pain and some swelling.Had been visiting friend and was in her backyard which is wooded. PAST MEDICAL HISTORY: The patient has a past medical history of lymphoma, splenectomy, lung cancer with two lung resections. She states recently she had an evaluation by thoracic surgeon at [facility] who told her that as per the patient, recent studies were negative. She has a history of DVT,TIA,Spinal stenosis She has a history of coronary artery disease, history of anxiety, history of degenerative disease of the lumbar spine. MEDICATIONS: She states that her home medications consist of Keflex, MiraLax, Nexium, Rytary ER, Ambien p.r.n., Xarelto, metoprolol. SOCIAL HISTORY: She is a nonsmoker, nondrinker, nondrug user. ALLERGIES: TO PLAVIX. REVIEW OF SYSTEMS: Ten systems are reviewed. Pertinent findings during the physical exam. PHYSICAL EXAMINATION GENERAL: She is alert and oriented x3. VITAL SIGNS: Reported as a temp of 97.7, pulse is 78, blood pressure is reported at 125/83, respiratory rate is 18, oxygen saturation is 98% on room air. NECK: Supple. There is no JVD. LUNGS: Clear. HEART: Is in S1 and S2 rhythm. ABDOMEN: Soft with positive bowel sounds. EXTREMITIES: Show edema in the lower left ankle. There are two areas of red blotchy rash on the left calf one above the other. LABORATORY DATA: Shows a WBC of 11.3, RBC 4.26, hemoglobin 13.2, hematocrit 39.7, platelet count 308,000. Chemistry shows normal electrolytes. The BUN is 29, the creatinine is 1, random blood sugar is 116. ASSESSMENT AND PLAN: In the emergency room, the patient was given vancomycin and Zosyn. She was admitted to the medical floor with consults with Infectious Disease and Wound Service, Dr. Smith. 1. Must consider the possibility of cellulitis. 2. Vascular etiology. 3. Possible bug bite. Marysol Mccarty MD [facility]
[2018-08-21] MEDS ORDERED: POLYETHYLENE GLYCOL 3350 17 GM/Dose PACKET PO STA (22:59)
[2018-08-22 07:08] LABS: HEMOGLOBIN 13.2 g/dL (12.0-16.0); MEAN CELL VOLUME 93.8 fl (80.0-105.0); MEAN CORPUSCULAR HEMOGLOBIN 30.5 pg (25.0-35.0); MEAN CORPUSCULAR HGB CONC 32.5 g/dl (31.0-37.0); MEAN PLATELET VOLUME 10.4 fl (7.0-11.0); RBC 4.33 10^6/uL (3.5-6.1); RED CELL DISTRIBUTION WIDTH 14.7 % (11.5-14.5); WHITE BLOOD COUNT 9.6 10^3/ul (4.5-11.0)
[2018-08-22 07:25] LABS: ALB/GLOB RATIO 1.3 (1.1-1.8); ALBUMIN 3.9 g/dL (3.0-4.8); ALT/SGPT 25 U/L (7-56); AST/SGOT 25 U/L (14-36); BLOOD UREA NITROGEN 26 mg/dL (7-21); CALCIUM 8.9 mg/dL (8.4-10.5); GFR NON-AFRICAN AMERICAN 54
--- NOTE | 2018-08-22 08:24 | CP.PCM.PN ---
Addendum entered and electronically signed by Dorys Portillo DPM 08/22/18 10:09: Topicort ordered; apply to erythematous lesions BID Original Note: Subjective - Date & Time of Evaluation Date of Evaluation: 08/22/18 Time of Evaluation: 08:22 - Subjective Subjective: Podiatry Consult Note for Dr. Smith: 77 yo female patient, seen and evaluated, at bedside with Dr. Smith for left leg localized erythematous patches. She states that today it is itchier than yesterday and the redness hasn't resolved. She denies any N/V/F/SOB/CP. Objective - Vital Signs/Intake and Output Vital Signs (last 24 hours): Temp Pulse Resp BP Pulse Ox 97.9 F 66 18 154/122 H 98 08/21/18 17:31 08/21/18 17:31 08/21/18 17:31 08/21/18 17:31 08/21/18 17:31 Intake and Output: 08/22/18 08/22/18 06:59 18:59 Intake Total 1200 240 Balance 1200 240 - Medications Medications: Current Medications Acetaminophen (Tylenol 325mg Tab) 650 mg PO Q4H PRN PRN Reason: Fever >100.5 F Last Admin: 08/21/18 05:52 Dose: 650 mg Acetaminophen/Butalbital/Caffeine (Fioricet) 1 tab PO Q4H PRN PRN Reason: Migraine headache Last Admin: 08/21/18 12:44 Dose: 1 tab Doxycycline Hyclate (Doryx) 100 mg PO Q12 [facility]; Protocol Last Admin: 08/21/18 22:30 Dose: 100 mg Famotidine (Pepcid) 20 mg PO HS [facility] Last Admin: 08/21/18 22:35 Dose: 20 mg Ceftriaxone Sodium (Rocephin 1 Gram Ivpb) 1 gm in 100 mls @ 100 mls/hr IVPB DAILY [facility]; Protocol Last Admin: 08/21/18 17:14 Dose: 100 mls/hr Metoprolol Tartrate (Lopressor) 50 mg PO BID [facility] Last Admin: 08/21/18 17:11 Dose: 50 mg Carbidopa/Levodopa [ Rytary Er 23.75 Mg- 95 Mg] Home 23.75 mg PO BID [facility] Last Admin: 08/21/18 17:10 Dose: Not Given Polyethylene Glycol (Miralax) 17 gm PO DAILY [facility] Last Admin: 08/21/18 10:30 Dose: 17 gm Rivaroxaban (Xarelto) 20 mg PO DAILY [facility]; Protocol Last Admin: 08/21/18 10:30 Dose: 20 mg - Labs Labs: 08/22/18 07:00 08/22/18 07:00 - Constitutional Appears: Well, Non-toxic, No Acute Distress - Head Exam Head Exam: ATRAUMATIC, NORMOCEPHALIC - Extremities Exam Additional comments: Vascular: DP/PT palpable, CFT < 3 seconds, TG warm to warm bilaterally with in creased warmth to erythematous lesions, no edema noted Ortho: MMT 4/5 in all compartments, no gross deformities noted Neuro: Gross sensation intact, protective sensation intact Derm: Two localized circular erythematous lesions noted to proximal lateral aspect of leg with vascular appearance. No open lesions noted, no purulence, no drainage appreciated. - Neurological Exam Neurological Exam: Alert, Awake, Oriented x3 - Psychiatric Exam Psychiatric exam: Normal Affect, Normal Mood Assessment and Plan - Assessment and Plan (Free Text) Assessment: 77 yo female patient, with two localized erythematous lesions to left leg secondary to possible insect bite Plan: Patient seen and evaluated with Dr. Smith VSS, WBC 9.6 Bedside punch biopsy of proximal left lesion performed by Dr. Smith Specimen sent to pathology; pending Continue with IV abx per ID reccs Podiatry will continue to follow will patient is in house
[2018-08-22] MEDS: CARBIDOPA PO SCH ×2 (10:33→18:01)
[2018-08-22] MEDS: LEVODOPA PO SCH ×2 (10:33→18:01)
[2018-08-22] MEDS: cefTRIAXone 1 gm 1 GM/100 ML BAG IVPB SCH (10:38)
[2018-08-22] MEDS: POLYETHYLENE GLYCOL 3350 17 GM/Dose PACKET PO SCH (10:38)
--- NOTE | 2018-08-22 20:23 | PN ---
DATE: 08/22/2018 SUBJECTIVE: A 77-year-old female admitted for mild erythematous areas on the left lower calf. PHYSICAL EXAMINATION: VITAL SIGNS: She currently has a temperature of 97.4. Her pulse is 63, blood pressure is 156/74, oxygen sat is 97% on room air. LUNGS: Clear. HEART: S1 and S2 rhythm. ABDOMEN: Soft with positive bowel sounds. EXTREMITIES: Show the erythematous areas on the left calf area. LABORATORY DATA: Shows a WBC of 9.6, RBC 4.33, hemoglobin 13.2, hematocrit 40.6, and platelet count 300,000. Chemistry shows normal electrolytes. BUN is 26, creatinine is 1. LFTs are normal. ASSESSMENT AND PLAN: 1. The patient has been placed on IV antibiotics by Infectious Disease. 2. Podiatry is going to do a punch biopsy of the lesion. 3. We will continue current recommendations at this time and await for the results of the diagnostic studies. She continues at this time on Doryx, Fioricet for headaches, Xarelto for a history of DVT. Marysol Mccarty MD
--- NOTE | 2018-08-22 20:43 | CP.PCM.PN ---
Subjective - Date & Time of Evaluation Date of Evaluation: 08/22/18 Time of Evaluation: 11:20 - Subjective Subjective: Biopsy of the skin lesion has been done , no fevers, not in distress, less pain in the left leg but still itchy. Objective - Vital Signs/Intake and Output Vital Signs (last 24 hours): Temp Pulse Resp BP Pulse Ox 97.9 F 66 18 154/122 H 98 08/21/18 17:31 08/21/18 17:31 08/21/18 17:31 08/21/18 17:31 08/21/18 17:31 Intake and Output: 08/22/18 08/22/18 06:59 18:59 Intake Total 1200 Balance 1200 - Medications Medications: Current Medications Acetaminophen (Tylenol 325mg Tab) 650 mg PO Q4H PRN PRN Reason: Fever >100.5 F Last Admin: 08/21/18 05:52 Dose: 650 mg Acetaminophen/Butalbital/Caffeine (Fioricet) 1 tab PO Q4H PRN PRN Reason: Migraine headache Last Admin: 08/21/18 12:44 Dose: 1 tab Doxycycline Hyclate (Doryx) 100 mg PO Q12 [facility]; Protocol Last Admin: 08/21/18 22:30 Dose: 100 mg Famotidine (Pepcid) 20 mg PO HS [facility] Last Admin: 08/21/18 22:35 Dose: 20 mg Ceftriaxone Sodium (Rocephin 1 Gram Ivpb) 1 gm in 100 mls @ 100 mls/hr IVPB DAILY [facility]; Protocol Last Admin: 08/21/18 17:14 Dose: 100 mls/hr Metoprolol Tartrate (Lopressor) 50 mg PO BID [facility] Last Admin: 08/21/18 17:11 Dose: 50 mg Carbidopa/Levodopa [ Rytary Er 23.75 Mg- 95 Mg] Home 23.75 mg PO BID [facility] Last Admin: 08/21/18 17:10 Dose: Not Given Polyethylene Glycol (Miralax) 17 gm PO DAILY [facility] Last Admin: 08/21/18 10:30 Dose: 17 gm Rivaroxaban (Xarelto) 20 mg PO DAILY [facility]; Protocol Last Admin: 08/21/18 10:30 Dose: 20 mg - Labs Labs: 08/22/18 07:00 08/22/18 07:00 - Constitutional Appears: Non-toxic, No Acute Distress, Chronically Ill - Head Exam Head Exam: NORMAL INSPECTION - Respiratory Exam Respiratory Exam: Decreased Breath Sounds - Cardiovascular Exam Cardiovascular Exam: +S1, +S2 - GI/Abdominal Exam GI & Abdominal Exam: Soft. absent: Tenderness - Extremities Exam Additional comments: left leg with dressings in place Assessment and Plan - Assessment and Plan (Free Text) Plan: Assessment left lower extremity skin and skin structure infection, R/O Lyme disease, R/O Rickettsial disease, consider dermatitis history of UTI with gram negative bacilli history of lung CA non-Hodgkin lymphoma S/P chemotherapy COPD HTN TIA CVA chronic back pain with spinal stenosis DVT dyslipidemia Plan continue Rocephin and Doxycycline day 2 and follow up skin biopsy results
[2018-08-22] MEDS: Apap-Butalbital-Caffeine 325-50-40mg Tab PO PRN (22:10)
[2018-08-23 07:15] LABS: HEMOGLOBIN 12.5 g/dL (12.0-16.0); MEAN CELL VOLUME 92.9 fl (80.0-105.0); MEAN CORPUSCULAR HEMOGLOBIN 30.6 pg (25.0-35.0); MEAN PLATELET VOLUME 10.8 fl (7.0-11.0); RBC 4.08 10^6/uL (3.5-6.1); RED CELL DISTRIBUTION WIDTH 14.7 % (11.5-14.5); WHITE BLOOD COUNT 8.6 10^3/ul (4.5-11.0)
[2018-08-23 07:43] LABS: ALB/GLOB RATIO 1.3 (1.1-1.8); ALBUMIN 3.7 g/dL (3.0-4.8); ALT/SGPT 27 U/L (7-56); AST/SGOT 30 U/L (14-36); BLOOD UREA NITROGEN 24 mg/dL (7-21); GFR NON-AFRICAN AMERICAN 54
[2018-08-23] MEDS: CARBIDOPA PO SCH ×2 (09:38→17:38)
[2018-08-23] MEDS: LEVODOPA PO SCH ×2 (09:38→17:38)
[2018-08-23] MEDS: cefTRIAXone 1 gm 1 GM/100 ML BAG IVPB SCH (09:39)
[2018-08-23] MEDS: POLYETHYLENE GLYCOL 3350 17 GM/Dose PACKET PO SCH (09:39)
[2018-08-23] MEDS: Desoximetasone 0.05% Cream(60 gm) TOP SCH ×2 (09:40→17:39)
--- NOTE | 2018-08-23 13:13 | CP.PCM.CON ---
<Osvaldo Prabhakar - Last Filed: 08/23/18 13:12> History of Present Illness - History of Present Illness History of Present Illness: Stephan Prabhakar DO PGY2 - GI Consult Note Consult Reason: Melena HPI: 77 year old female with past medical history of NHL, non-small cell lyng cancer, HTN, Adult polycystic kidney disease, HLD, history of pulmonary embolism, COPD, TIA, CVA, lower back pain with spinal stenosis and DVT who presented [place] [facility] [place] a bug bite to her lower leg. Patient was admitted to hospital for suspected cellulitis. Infectious disease is following patient and has started on her on rocephin and doxycycline. Patient reported having a PMH: NHL, non-small cell lyng cancer, HTN, Adult polycystic kidney disease, HLD, history of pulmonary embolism, COPD, TIA, CVA, lower back pain with spinal stenosis and DVT, carcinoma of spleen PSH: Partial lobectomy left lung, spleenectomy, Right shoulder rotator cuff, right ankle surgery FMH: Denies SOCHX: Denies tobacco, etoh, ID ALL: Clopidogrel MEDS: XIANG Reivewed PMD: Dr. Marysol Mccarty Past Patient History - Infectious Disease Hx of Infectious Diseases: None - Tetanus Immunizations Tetanus Immunization: Unknown - Past Social History Smoking Status: Never Smoked - CARDIAC Hx Cardiac Disorders: Yes Hx Hypertension: Yes - PULMONARY Hx Chronic Obstructive Pulmonary Disease (COPD): Yes - NEUROLOGICAL Hx Neurological Disorder: Yes Hx Migraine: Yes Hx Transient Ischemic Attacks (TIA): Yes - HEENT Hx HEENT Problems: Yes Hx Cataracts: Yes (b/l sx) Hx Glaucoma: Yes - RENAL Hx Chronic Kidney Disease: No Other/Comment: polycystic kidney disease - ENDOCRINE/METABOLIC Hx Endocrine Disorders: No - HEMATOLOGICAL/ONCOLOGICAL Hx Blood Disorders: Yes Hx Cancer: Yes (non hodgkins lymphoma, spleen, L lung) Hx Chemotherapy: Yes Other/Comment: PE, pt dx with ca spleen, spleen removed dx with non hodkins lymphoma, pt dx with ca left lung, two sx's to left lower lobe - INTEGUMENTARY Hx Dermatological Problems: No - MUSCULOSKELETAL/RHEUMATOLOGICAL Hx Arthritis: Yes - GASTROINTESTINAL Hx Gastrointestinal Disorders: Yes Hx Gastroesophageal Reflux: Yes Other/Comment: "esophageal problems," GI bleed - GENITOURINARY/GYNECOLOGICAL Hx Genitourinary Disorders: Yes Hx Urinary Tract Infection: Yes - PSYCHIATRIC Hx Psychophysiologic Disorder: Yes Hx Anxiety: Yes Hx Substance Use: No - SURGICAL HISTORY Hx Cardiac Catheterization: Yes Hx Coronary Stent: Yes (x2) Hx Hysterectomy: Yes Hx Orthopedic Surgery: Yes (right shoulder rotator cuff, R ankle) Hx Splenectomy: Yes Other/Comment: partial lobectomy left lung - ANESTHESIA Hx Anesthesia: Yes Hx Anesthesia Reactions: No Hx Malignant Hyperthermia: No Meds Allergies/Adverse Reactions: Allergies Allergy/AdvReac Type Severity Reaction Status Date / Time clopidogrel Allergy Severe RASH Verified 09/05/16 02:34 - Medications Medications: Current Medications Acetaminophen (Tylenol 325mg Tab) 650 mg PO Q4H PRN PRN Reason: Fever >100.5 F Last Admin: 08/21/18 05:52 Dose: 650 mg Acetaminophen (Tylenol 325mg Tab) 650 mg PO Q6H PRN PRN Reason: Pain, Mild (1-3) Last Admin: 08/23/18 09:40 Dose: 650 mg Acetaminophen/Butalbital/Caffeine (Fioricet) 1 tab PO Q4H PRN PRN Reason: Migraine headache Last Admin: 08/22/18 22:10 Dose: 1 tab Desoximetasone (Topicort 0.05%) 0 ea TOP BID [facility] Last Admin: 08/23/18 09:40 Dose: 1 applic Doxycycline Hyclate (Doryx) 100 mg PO Q12 [facility]; Protocol Last Admin: 08/23/18 09:38 Dose: 100 mg Famotidine (Pepcid) 20 mg PO HS [facility] Last Admin: 08/22/18 22:23 Dose: 20 mg Ceftriaxone Sodium (Rocephin 1 Gram Ivpb) 1 gm in 100 mls @ 100 mls/hr IVPB DAILY [facility]; Protocol Last Admin: 08/23/18 09:39 Dose: 100 mls/hr Metoprolol Tartrate (Lopressor) 50 mg PO BID [facility] Last Admin: 08/23/18 09:39 Dose: 50 mg Carbidopa/Levodopa [ Rytary Er 23.75 Mg- 95 Mg] Home 23.75 mg PO BID [facility] Last Admin: 08/23/18 09:38 Dose: Not Given Polyethylene Glycol (Miralax) 17 gm PO DAILY [facility] Last Admin: 08/23/18 09:39 Dose: 17 gm Rivaroxaban (Xarelto) 20 mg PO DAILY [facility]; Protocol Last Admin: 08/23/18 09:41 Dose: 20 mg Results - Vital Signs Recent Vital Signs: Last Vital Signs Temp 97.4 F L 08/23/18 08:32 Pulse 60 08/23/18 09:39 Resp 20 08/23/18 08:32 BP 136/71 08/23/18 09:39 Pulse Ox 96 08/23/18 08:32 - Labs Result Diagrams: 08/23/18 07:00 08/23/18 07:00 Labs: Laboratory Results - last 24 hr 08/23/18 08/23/18 07:00 07:00 WBC 8.6 RBC 4.08 Hgb 12.5 Hct 37.9 MCV 92.9 MCH 30.6 MCHC 33.0 RDW 14.7 H Plt Count 321 MPV 10.8 Sodium 140 Potassium 4.3 Chloride 107 Carbon Dioxide 25 Anion Gap 11 BUN 24 H Creatinine 1.0 Est GFR ( Amer) > 60 Est GFR (Non-Af Amer) 54 Random Glucose 85 Calcium 9.0 Total Bilirubin 0.3 AST 30 ALT 27 Alkaline Phosphatase 78 Total Protein 6.6 Albumin 3.7 Globulin 2.9 Albumin/Globulin Ratio 1.3 Assessment & Plan - Assessment and Plan (Free Text) Assessment: 77 year old female with past medical history of NHL, non-small cell lyng cancer, HTN, Adult polycystic kidney disease, HLD, history of pulmonary embolism, COPD, TIA, CVA, lower back pain with spinal stenosis and DVT who presented to [facility] [place] with left leg cellulitis secondary to suspected bug bite. GI consulted for single episode of dark melena stool Plan: ?Melena COPD TIA, CVA Hx PE, DVT Spinal stenosis HLD APCKD -Patient with self reported melena episode -Collect stool for further examination -H/H stable from admission, continue to monitor -Further recommendations per Dr. Momin Preliminary Note - Date & Time Date: 08/23/18 Time: 13:13 <Zacarias Momin V - Last Filed: 08/23/18 23:48> Meds - Medications Medications: Current Medications Acetaminophen (Tylenol 325mg Tab) 650 mg PO Q4H PRN PRN Reason: Fever >100.5 F Last Admin: 08/21/18 05:52 Dose: 650 mg Acetaminophen (Tylenol 325mg Tab) 650 mg PO Q6H PRN PRN Reason: Pain, Mild (1-3) Last Admin: 08/23/18 17:39 Dose: 650 mg Acetaminophen/Butalbital/Caffeine (Fioricet) 1 tab PO Q4H PRN PRN Reason: Migraine headache Last Admin: 08/22/18 22:10 Dose: 1 tab Desoximetasone (Topicort 0.05%) 0 ea TOP BID [facility] Last Admin: 08/23/18 17:39 Dose: 1 applic Doxycycline Hyclate (Doryx) 100 mg PO Q12 [facility]; Protocol Last Admin: 08/23/18 21:02 Dose: 100 mg Famotidine (Pepcid) 20 mg PO HS [facility] Last Admin: 08/23/18 21:03 Dose: 20 mg Ceftriaxone Sodium (Rocephin 1 Gram Ivpb) 1 gm in 100 mls @ 100 mls/hr IVPB DAILY [facility]; Protocol Last Admin: 08/23/18 09:39 Dose: 100 mls/hr Metoprolol Tartrate (Lopressor) 50 mg PO BID [facility] Last Admin: 08/23/18 17:38 Dose: 50 mg Carbidopa/Levodopa [ Rytary Er 23.75 Mg- 95 Mg] Home 23.75 mg PO BID [facility] Last Admin: 08/23/18 17:38 Dose: Not Given Polyethylene Glycol (Miralax) 17 gm PO DAILY [facility] Last Admin: 08/23/18 09:39 Dose: 17 gm Rivaroxaban (Xarelto) 20 mg PO DAILY [facility]; Protocol Last Admin: 08/23/18 09:41 Dose: 20 mg Results - Vital Signs Recent Vital Signs: Last Vital Signs Temp 99.4 F 08/23/18 17:25 Pulse 64 08/23/18 17:25 Resp 20 08/23/18 17:25 BP 136/71 08/23/18 17:38 Pulse Ox 98 08/23/18 17:25 - Labs Result Diagrams: 08/23/18 07:00 08/23/18 07:00 Labs: Laboratory Results - last 24 hr 08/23/18 08/23/18 07:00 07:00 WBC 8.6 RBC 4.08 Hgb 12.5 Hct 37.9 MCV 92.9 MCH 30.6 MCHC 33.0 RDW 14.7 H Plt Count 321 MPV 10.8 Sodium 140 Potassium 4.3 Chloride 107 Carbon Dioxide 25 Anion Gap 11 BUN 24 H Creatinine 1.0 Est GFR ( Amer) > 60 Est GFR (Non-Af Amer) 54 Random Glucose 85 Calcium 9.0 Total Bilirubin 0.3 AST 30 ALT 27 Alkaline Phosphatase 78 Total Protein 6.6 Albumin 3.7 Globulin 2.9 Albumin/Globulin Ratio 1.3 Attending/Attestation - Attestation I have personally seen and examined this patient.: Yes I have fully participated in the care of the patient.: Yes I have reviewed all pertinent clinical information: Yes Notes (Text): This is an addendum to GI consult report dictated by the GI Fellow.The patient was seen and examined earlier. Medical records, lab studies, imagings were r eviewed. Last 24 hours events reviewed. Agreed with the above treatment plan as outlined in GI Fellow 's notes with the addition of the following this patient with a history of non-Hodgkin's lymphoma, status post splenectomy, lung resection for cancer had episode of dark stool and there was concern about GI bleeding Patient did have bowel movements which was looked at by the nursing staff and re sident and it appeared to be dark green stool and not melena Advance diet Follow-up hemoglobin Continue present treatment 08/23/18 23:46
--- NOTE | 2018-08-23 14:47 | CP.PCM.PN ---
<Dorys Portillo - Last Filed: 08/23/18 14:58> Subjective - Date & Time of Evaluation Date of Evaluation: 08/23/18 Time of Evaluation: 14:47 - Subjective Subjective: Podiatry Consult Note for Dr. Smith: 77 yo female patient, seen and evaluated, for left leg localized erythematous patches. Patient states that her leg is very itchy today. She states her whole body started aching overnight. Dressing C/D/I. She denies N/V/F/SOB/CP. Objective - Vital Signs/Intake and Output Vital Signs (last 24 hours): Temp Pulse Resp BP Pulse Ox 97.4 F L 60 20 136/71 96 08/23/18 08:32 08/23/18 09:39 08/23/18 08:32 08/23/18 09:39 08/23/18 08:32 - Medications Medications: Current Medications Acetaminophen (Tylenol 325mg Tab) 650 mg PO Q4H PRN PRN Reason: Fever >100.5 F Last Admin: 08/21/18 05:52 Dose: 650 mg Acetaminophen (Tylenol 325mg Tab) 650 mg PO Q6H PRN PRN Reason: Pain, Mild (1-3) Last Admin: 08/23/18 09:40 Dose: 650 mg Acetaminophen/Butalbital/Caffeine (Fioricet) 1 tab PO Q4H PRN PRN Reason: Migraine headache Last Admin: 08/22/18 22:10 Dose: 1 tab Desoximetasone (Topicort 0.05%) 0 ea TOP BID [facility] Last Admin: 08/23/18 09:40 Dose: 1 applic Doxycycline Hyclate (Doryx) 100 mg PO Q12 [facility]; Protocol Last Admin: 08/23/18 09:38 Dose: 100 mg Famotidine (Pepcid) 20 mg PO HS [facility] Last Admin: 08/22/18 22:23 Dose: 20 mg Ceftriaxone Sodium (Rocephin 1 Gram Ivpb) 1 gm in 100 mls @ 100 mls/hr IVPB DAILY [facility]; Protocol Last Admin: 08/23/18 09:39 Dose: 100 mls/hr Metoprolol Tartrate (Lopressor) 50 mg PO BID [facility] Last Admin: 08/23/18 09:39 Dose: 50 mg Carbidopa/Levodopa [ Rytary Er 23.75 Mg- 95 Mg] Home 23.75 mg PO BID [facility] Last Admin: 08/23/18 09:38 Dose: Not Given Polyethylene Glycol (Miralax) 17 gm PO DAILY [facility] Last Admin: 08/23/18 09:39 Dose: 17 gm Rivaroxaban (Xarelto) 20 mg PO DAILY [facility]; Protocol Last Admin: 08/23/18 09:41 Dose: 20 mg - Labs Labs: 08/23/18 07:00 08/23/18 07:00 - Constitutional Appears: Well, Non-toxic, No Acute Distress - Head Exam Head Exam: ATRAUMATIC, NORMOCEPHALIC - Extremities Exam Additional comments: Vascular: DP/PT palpable, CFT < 3 seconds, TG warm to warm bilaterally with increased warmth to erythematous lesions, no edema noted Ortho: MMT 4/5 in all compartments, no gross deformities noted Neuro: Gross sensation intact, protective sensation intact Derm: Two localized circular erythematous lesions noted to proximal lateral aspect of leg with vascular appearance, resolving. Biopsy site intact, no purulence, no drainage, no clinical signs of infection to the area. - Neurological Exam Neurological Exam: Alert, Awake, Oriented x3 - Psychiatric Exam Psychiatric exam: Normal Affect, Normal Mood Assessment and Plan - Assessment and Plan (Free Text) Assessment: 77 yo female patient, with two localized erythematous lesions to left leg secondary to possible insect bite Plan: Patient seen and evaluated with Dr. Ardon WBC 8.6 Topicort applied to erythematous lesions BID Bedside punch biopsy of proximal left lesion performed by Dr. Smith yesterday (08/22) -Specimen sent to pathology (08/22); pending Continue with IV abx per Dr. Carreon: continue Rocephin and Doxycycline day 2 and follow up skin biopsy results Podiatry will continue to follow <Kimo Ardon - Last Filed: 08/23/18 17:09> Objective - Vital Signs/Intake and Output Vital Signs (last 24 hours): Temp Pulse Resp BP Pulse Ox 97.4 F L 60 20 136/71 96 08/23/18 08:32 08/23/18 09:39 08/23/18 08:32 08/23/18 09:39 08/23/18 08:32 - Medications Medications: Current Medications Acetaminophen (Tylenol 325mg Tab) 650 mg PO Q4H PRN PRN Reason: Fever >100.5 F Last Admin: 08/21/18 05:52 Dose: 650 mg Acetaminophen (Tylenol 325mg Tab) 650 mg PO Q6H PRN PRN Reason: Pain, Mild (1-3) Last Admin: 08/23/18 09:40 Dose: 650 mg Acetaminophen/Butalbital/Caffeine (Fioricet) 1 tab PO Q4H PRN PRN Reason: Migraine headache Last Admin: 08/22/18 22:10 Dose: 1 tab Desoximetasone (Topicort 0.05%) 0 ea TOP BID [facility] Last Admin: 08/23/18 09:40 Dose: 1 applic Doxycycline Hyclate (Doryx) 100 mg PO Q12 [facility]; Protocol Last Admin: 08/23/18 09:38 Dose: 100 mg Famotidine (Pepcid) 20 mg PO HS [facility] Last Admin: 08/22/18 22:23 Dose: 20 mg Ceftriaxone Sodium (Rocephin 1 Gram Ivpb) 1 gm in 100 mls @ 100 mls/hr IVPB DAILY [facility]; Protocol Last Admin: 08/23/18 09:39 Dose: 100 mls/hr Metoprolol Tartrate (Lopressor) 50 mg PO BID [facility] Last Admin: 08/23/18 09:39 Dose: 50 mg Carbidopa/Levodopa [ Rytary Er 23.75 Mg- 95 Mg] Home 23.75 mg PO BID [facility] Last Admin: 08/23/18 09:38 Dose: Not Given Polyethylene Glycol (Miralax) 17 gm PO DAILY [facility] Last Admin: 08/23/18 09:39 Dose: 17 gm Rivaroxaban (Xarelto) 20 mg PO DAILY [facility]; Protocol Last Admin: 08/23/18 09:41 Dose: 20 mg - Labs Labs: 08/23/18 07:00 08/23/18 07:00 Attending/Attestation - Attestation I have personally seen and examined this patient.: Yes I have fully participated in the care of the patient.: Yes I have reviewed all pertinent clinical information, including history, physical exam and plan: Yes
--- NOTE | 2018-08-23 21:31 | PN ---
DATE: 08/23/2018 SUBJECTIVE: A 78-year-old female resting in bed this morning. The patient said that she feels a little bit stiff and achy this morning. Nursing staff relates that there were no particular problems during the night. PHYSICAL EXAMINATION VITAL SIGNS: She has an oral temperature of 99.4, pulse is 64, blood pressure is 136/71, respiratory rate is 21. GENERAL: She is alert and oriented x3. LUNGS: Clear. HEART: S1 and S2 rhythm. ABDOMEN: Soft. Positive bowel sounds. EXTREMITIES: Show left lower calf area two erythematous areas which are less red today than the other day, one is wrapped status post punch biopsy, results are pending. She currently is on IV antibiotics by Infectious Disease. ASSESSMENT AND PLAN: At this point, cultures of blood are negative at 48 hours. She is being followed by Podiatry and Infectious Disease. We will continue current level of care at this time. I have reviewed all the clinical findings at this point with the patient more than 35 minutes. Marysol Mccarty MD
--- NOTE | 2018-08-23 22:02 | CP.PCM.PN ---
Subjective - Date & Time of Evaluation Date of Evaluation: 08/23/18 Time of Evaluation: 12:55 - Subjective Subjective: Still with itching on the left leg but a little less, no fevers. Objective - Vital Signs/Intake and Output Vital Signs (last 24 hours): Temp Pulse Resp BP Pulse Ox 97.4 F L 69 18 141/74 98 08/22/18 16:46 08/22/18 18:03 08/22/18 16:46 08/22/18 18:03 08/22/18 16:46 Intake and Output: 08/22/18 08/23/18 18:59 06:59 Intake Total 240 Balance 240 - Medications Medications: Current Medications Acetaminophen (Tylenol 325mg Tab) 650 mg PO Q4H PRN PRN Reason: Fever >100.5 F Last Admin: 08/21/18 05:52 Dose: 650 mg Acetaminophen/Butalbital/Caffeine (Fioricet) 1 tab PO Q4H PRN PRN Reason: Migraine headache Last Admin: 08/21/18 12:44 Dose: 1 tab Desoximetasone (Topicort 0.05%) 0 ea TOP BID [facility] Doxycycline Hyclate (Doryx) 100 mg PO Q12 [facility]; Protocol Last Admin: 08/22/18 10:34 Dose: 100 mg Famotidine (Pepcid) 20 mg PO HS [facility] Last Admin: 08/21/18 22:35 Dose: 20 mg Ceftriaxone Sodium (Rocephin 1 Gram Ivpb) 1 gm in 100 mls @ 100 mls/hr IVPB DAILY [facility]; Protocol Last Admin: 08/22/18 10:38 Dose: 100 mls/hr Metoprolol Tartrate (Lopressor) 50 mg PO BID [facility] Last Admin: 08/22/18 18:03 Dose: 50 mg Carbidopa/Levodopa [ Rytary Er 23.75 Mg- 95 Mg] Home 23.75 mg PO BID [facility] Last Admin: 08/22/18 18:01 Dose: Not Given Polyethylene Glycol (Miralax) 17 gm PO DAILY [facility] Last Admin: 08/22/18 10:38 Dose: 17 gm Rivaroxaban (Xarelto) 20 mg PO DAILY [facility]; Protocol Last Admin: 08/22/18 10:39 Dose: 20 mg - Labs Labs: 08/22/18 07:00 08/22/18 07:00 - Constitutional Appears: Non-toxic, No Acute Distress, Chronically Ill - Head Exam Head Exam: NORMAL INSPECTION - Respiratory Exam Respiratory Exam: Decreased Breath Sounds - Cardiovascular Exam Cardiovascular Exam: +S1, +S2 - GI/Abdominal Exam GI & Abdominal Exam: Soft. absent: Tenderness - Extremities Exam Additional comments: left leg with dressings in place Assessment and Plan - Assessment and Plan (Free Text) Plan: Assessment left lower extremity skin and skin structure infection, R/O Lyme disease, R/O Rickettsial disease - biopsy of the skin is showing allergic reaction, probably from an insect bite history of UTI with gram negative bacilli history of lung CA non-Hodgkin lymphoma S/P chemotherapy COPD HTN TIA CVA chronic back pain with spinal stenosis DVT dyslipidemia Plan on Rocephin and Doxycycline day 3 and may switch to PO antibiotics to complete 5 days - reviewed skin biopsy results - will probably benefit from topical steroids
[2018-08-24 08:25] VITALS: RESP 19; TEMP 97.3; O2SAT 100
[2018-08-24 08:30] LABS: HEMOGLOBIN 12.8 g/dL (12.0-16.0); MEAN CELL VOLUME 93.2 fl (80.0-105.0); MEAN CORPUSCULAR HEMOGLOBIN 30.2 pg (25.0-35.0); MEAN CORPUSCULAR HGB CONC 32.4 g/dl (31.0-37.0); MEAN PLATELET VOLUME 11.1 fl (7.0-11.0); RBC 4.24 10^6/uL (3.5-6.1); RED CELL DISTRIBUTION WIDTH 14.9 % (11.5-14.5); WHITE BLOOD COUNT 7.9 10^3/ul (4.5-11.0)
--- NOTE | 2018-08-24 08:36 | CP.PCM.PN ---
Subjective - Date & Time of Evaluation Date of Evaluation: 08/24/18 Time of Evaluation: 08:32 - Subjective Subjective: Podiatry progress Note for Dr. Ardon, 77 yo female patient, seen and evaluated, for left leg localized erythematous patches. Patient states that her leg is very itchy today. Patient states the dressing fell off, because the swelling has decreased significantly. Patient states she feels much better and will most likely be going home today. She denies N/V/F/SOB/CP. Objective - Vital Signs/Intake and Output Vital Signs (last 24 hours): Temp Pulse Resp BP Pulse Ox 97.3 F L 58 L 19 147/80 100 08/24/18 06:00 08/24/18 06:00 08/24/18 06:00 08/24/18 06:00 08/24/18 06:00 - Medications Medications: Current Medications Acetaminophen (Tylenol 325mg Tab) 650 mg PO Q4H PRN PRN Reason: Fever >100.5 F Last Admin: 08/21/18 05:52 Dose: 650 mg Acetaminophen (Tylenol 325mg Tab) 650 mg PO Q6H PRN PRN Reason: Pain, Mild (1-3) Last Admin: 08/23/18 17:39 Dose: 650 mg Acetaminophen/Butalbital/Caffeine (Fioricet) 1 tab PO Q4H PRN PRN Reason: Migraine headache Last Admin: 08/22/18 22:10 Dose: 1 tab Desoximetasone (Topicort 0.05%) 0 ea TOP BID [facility] Last Admin: 08/23/18 17:39 Dose: 1 applic Doxycycline Hyclate (Doryx) 100 mg PO Q12 [facility]; Protocol Last Admin: 08/23/18 21:02 Dose: 100 mg Famotidine (Pepcid) 20 mg PO HS [facility] Last Admin: 08/23/18 21:03 Dose: 20 mg Ceftriaxone Sodium (Rocephin 1 Gram Ivpb) 1 gm in 100 mls @ 100 mls/hr IVPB DAILY [facility]; Protocol Last Admin: 08/23/18 09:39 Dose: 100 mls/hr Metoprolol Tartrate (Lopressor) 50 mg PO BID [facility] Last Admin: 08/23/18 17:38 Dose: 50 mg Carbidopa/Levodopa [ Rytary Er 23.75 Mg- 95 Mg] Home 23.75 mg PO BID [facility] Last Admin: 08/23/18 17:38 Dose: Not Given Polyethylene Glycol (Miralax) 17 gm PO DAILY [facility] Last Admin: 08/23/18 09:39 Dose: 17 gm Rivaroxaban (Xarelto) 20 mg PO DAILY [facility]; Protocol Last Admin: 08/23/18 09:41 Dose: 20 mg - Labs Labs: 08/24/18 08:00 08/23/18 07:00 - Constitutional Appears: Well, Non-toxic, No Acute Distress - Head Exam Head Exam: ATRAUMATIC, NORMOCEPHALIC - Extremities Exam Additional comments: Vascular: DP/PT palpable, CFT < 3 seconds, TG warm to warm bilaterally with increased warmth to erythematous lesions, no edema noted Ortho: MMT 4/5 in all compartments, no gross deformities noted Neuro: Gross sensation intact, protective sensation intact Derm: Two localized circular erythematous lesions noted to proximal lateral aspect of leg with vascular appearance, resolving. Biopsy site intact, no purulence, no drainage, no clinical signs of infection to the area. - Neurological Exam Neurological Exam: Alert, Awake, Oriented x3 - Psychiatric Exam Psychiatric exam: Normal Affect - Skin Skin Exam: Normal Color Assessment and Plan - Assessment and Plan (Free Text) Assessment: 77 yo female patient, with two localized erythematous lesions to left leg secondary to possible insect bite Plan: Patient seen and evaluated with Dr. Ardon WBC 8.6 Topicort applied to erythematous lesions BID Bedside punch biopsy of proximal left lesion performed by Dr. Smith (08/22) -Specimen sent to pathology (08/22): consistent with spider bite; biopsy shows interstitial and perivascular dermal inflammation comprised of mixed inflammatory cells with predominance of eosinophils. Continue with IV abx per Dr. Carreon: continue Rocephin and Doxycycline day 3 Stable for discharge from podiatry point of view. Podiatry will continue to follow
[2018-08-24 08:56] LABS: ALB/GLOB RATIO 1.2 (1.1-1.8); ALBUMIN 3.6 g/dL (3.0-4.8); ALT/SGPT 24 U/L (7-56); AST/SGOT 20 U/L (14-36); BLOOD UREA NITROGEN 18 mg/dL (7-21); CALCIUM 8.9 mg/dL (8.4-10.5); GFR NON-AFRICAN AMERICAN > 60
[2018-08-24] MEDS: POLYETHYLENE GLYCOL 3350 17 GM/Dose PACKET PO SCH (10:03)
[2018-08-24] MEDS: cefTRIAXone 1 gm 1 GM/100 ML BAG IVPB SCH (10:04)
[2018-08-24] MEDS: Desoximetasone 0.05% Cream(60 gm) TOP SCH (10:06)
[2018-08-24 10:19] VITALS: BP 150/81; PULSE 81
--- NOTE | 2018-08-24 15:09 | CP.PCM.PN ---
<Kimo Mahan - Last Filed: 08/24/18 15:06> Subjective - Date & Time of Evaluation Date of Evaluation: 08/24/18 Time of Evaluation: 10:50 - Subjective Subjective: PGY-4 GI Fellow Prog Note Pt sitting up in bed when seen this AM. Denies any dark stools. Eager for DC. 5 point ROS negative other than stated above Objective - Vital Signs/Intake and Output Vital Signs (last 24 hours): Temp Pulse Resp BP Pulse Ox 97.3 F L 81 19 150/81 100 08/24/18 06:00 08/24/18 10:03 08/24/18 06:00 08/24/18 10:03 08/24/18 06:00 - Medications Medications: Current Medications Acetaminophen (Tylenol 325mg Tab) 650 mg PO Q4H PRN PRN Reason: Fever >100.5 F Last Admin: 08/21/18 05:52 Dose: 650 mg Acetaminophen (Tylenol 325mg Tab) 650 mg PO Q6H PRN PRN Reason: Pain, Mild (1-3) Last Admin: 08/23/18 17:39 Dose: 650 mg Acetaminophen/Butalbital/Caffeine (Fioricet) 1 tab PO Q4H PRN PRN Reason: Migraine headache Last Admin: 08/22/18 22:10 Dose: 1 tab Desoximetasone (Topicort 0.05%) 0 ea TOP BID [facility] Last Admin: 08/24/18 10:06 Dose: 1 applic Doxycycline Hyclate (Doryx) 100 mg PO Q12 [facility]; Protocol Last Admin: 08/24/18 10:02 Dose: 100 mg Famotidine (Pepcid) 20 mg PO HS [facility] Last Admin: 08/23/18 21:03 Dose: 20 mg Ceftriaxone Sodium (Rocephin 1 Gram Ivpb) 1 gm in 100 mls @ 100 mls/hr IVPB DAILY [facility]; Protocol Last Admin: 08/24/18 10:04 Dose: 100 mls/hr Metoprolol Tartrate (Lopressor) 50 mg PO BID [facility] Last Admin: 08/24/18 10:03 Dose: 50 mg Carbidopa/Levodopa [ Rytary Er 23.75 Mg- 95 Mg] Home 23.75 mg PO BID [facility] Last Admin: 08/23/18 17:38 Dose: Not Given Polyethylene Glycol (Miralax) 17 gm PO DAILY [facility] Last Admin: 08/24/18 10:03 Dose: Not Given Rivaroxaban (Xarelto) 20 mg PO DAILY [facility]; Protocol Last Admin: 08/23/18 09:41 Dose: 20 mg - Labs Labs: 08/24/18 08:00 08/24/18 08:00 - Constitutional Appears: Well, No Acute Distress - Head Exam Head Exam: ATRAUMATIC, NORMAL INSPECTION - Eye Exam Eye Exam: EOMI, Normal appearance. absent: Conjunctival injection - ENT Exam ENT Exam: Mucous Membranes Moist, Normal External Ear Exam. absent: Mucous Membranes Dry - Respiratory Exam Respiratory Exam: NORMAL BREATHING PATTERN. absent: Accessory Muscle Use - GI/Abdominal Exam GI & Abdominal Exam: Soft, Normal Bowel Sounds. absent: Bruit, Distended, Firm, Guarding, Rigid, Tenderness, Mass, Organomegaly, Pulsatile Mass Assessment and Plan - Assessment and Plan (Free Text) Assessment: 77 year old female with past medical history of NHL, non-small cell lyng cancer, HTN, Adult polycystic kidney disease, HLD, history of pulmonary embolism, COPD, TIA, CVA, lower back pain with spinal stenosis and DVT who presented to [facility] [place] with left leg cellulitis secondary to suspected bug bite. GI consulted for single episode of dark melena stool Plan: ?Melena: resolved. No further episode and Hgb stable. COPD TIA, CVA Hx PE, DVT Spinal stenosis HLD [facility]CKD -OK to DC from GI standpoint Pt discussed with Dr. Momin. See attestation for further recs/changes. <Zacarias Momin V - Last Filed: 08/24/18 19:59> Objective - Vital Signs/Intake and Output Vital Signs (last 24 hours): Temp Pulse Resp BP Pulse Ox 97.3 F L 81 19 150/81 100 08/24/18 06:00 08/24/18 10:03 08/24/18 06:00 08/24/18 10:03 08/24/18 06:00 - Labs Labs: 08/24/18 08:00 08/24/18 08:00 Attending/Attestation - Attestation I have personally seen and examined this patient.: No I have fully participated in the care of the patient.: Yes I have reviewed all pertinent clinical information, including history, physical exam and plan: Yes Notes (Text): This is an addendum to GI progress report dictated by the GI Fellow. Discussed with GI fellow earlier. Medical records, lab studies, imagings were reviewed. Last 24 hours events reviewed. Agreed with the above treatment plan as outlined in GI Fellow 's notes with the addition of the following Discussed with Dr. Mccarty No complaints of abdominal pain Tolerating diet Hb stable Planned for Discharge today 08/24/18 19:57
--- NOTE | 2018-08-24 20:18 | PN ---
DATE: 08/24/2018 SUBJECTIVE: The patient is seen in bed, no acute distress, nontoxic. PHYSICAL EXAMINATION VITAL SIGNS: Temperature is 97, blood pressure is 140/80, respiratory rate of 18, heart rate of 58. HEENT: Unremarkable. NECK: Supple. LUNGS: Have decreased breath sounds. HEART: Normal S1 and S2. ABDOMEN: Soft. LABORATORY DATA: Reveals a white count of 7.9, hemoglobin of 12, platelets of 325. Chemistries are noted. BUN of 18, creatinine of 0.9. Microbiology reveals the blood cultures are negative. ASSESSMENT AND PLAN: This is a 77-year-old female who is in [facility], bed 2, with a left lower extremity skin and skin structure infection. On exam, the patient appears to be much improved with a history of chronic obstructive pulmonary disease, Non-Hodgkin lymphoma, lung cancer, transient ischemic attack, cerebrovascular accident, deep venous thrombosis and currently on doxycycline and ceftriaxone. Maybe able to discontinue the ceftriaxone and the patient is on p.o. doxycycline for 7-10 days. Case discussed with PMD, Dr. Mccarty. The patient did have a biopsy. René Huston MD
== END 2018-08-24 15:20 | disposition home or self-care (01) | DRG 603 ==
LOC: ED 03:46 → ERH 05:33 → 3RSO 07:10 → OBSVTOIN 13:42
PROVIDERS: ADMIT Internal Medicine; ATTEND Internal Medicine
PROC: 0HBLXZX Excision of Left Lower Leg Skin, External Approach, Diagnostic (ICD-10-PCS; principal; 2018-08-22)
DX: L03.116 Cellulitis of left lower limb (principal); Q61.2 Polycystic kidney, adult type; S80.862A Insect bite (nonvenomous), left lower leg, initial encounter; I10 Essential (primary) hypertension; E78.5 Hyperlipidemia, unspecified; H40.9 Unspecified glaucoma; I25.10 Atherosclerotic heart disease of native coronary artery without angina pectoris; J44.9 Chronic obstructive pulmonary disease, unspecified; K21.9 Gastro-esophageal reflux disease without esophagitis; M48.00 Spinal stenosis, site unspecified; M51.36 Other intervertebral disc degeneration, lumbar region; F41.9 Anxiety disorder, unspecified; W57.XXXA Bitten or stung by nonvenomous insect and other nonvenomous arthropods, initial encounter; Z85.118 Personal history of other malignant neoplasm of bronchus and lung; Z86.711 Personal history of pulmonary embolism; Z86.718 Personal history of other venous thrombosis and embolism; Z86.73 Personal history of transient ischemic attack (TIA), and cerebral infarction without residual deficits; Z90.81 Acquired absence of spleen; Z85.72 Personal history of non-Hodgkin lymphomas; Z92.21 Personal history of antineoplastic chemotherapy; Z95.5 Presence of coronary angioplasty implant and graft; Z85.89 Personal history of malignant neoplasm of other organs and systems

== ENCOUNTER 2019-01-31 06:21 | Day surgery (SDC) | payer MEDICARE, OTHER ==
[2019-01-30 16:57] VITALS: BMI 31.9
[2019-01-31 07:09] LABS: INR 0.97; PARTIAL THROMBOPLASTIN TIME 34.6 Seconds (26.9-38.3)
[2019-01-31 07:12] LABS: URINE BILIRUBIN NEGATIVE (NEGATIVE); URINE BLOOD SMALL (NEGATIVE); URINE GLUCOSE (UA) NEGATIVE (NEGATIVE); URINE LEUKOCYTE ESTERASE SMALL Leu/uL (NEGATIVE); URINE PROTEIN NEGATIVE mg/dL (<30 mg/dL); URINE UROBILINOGEN 0.2 E.U./dL (<1 E.U./dL)
[2019-01-31 07:17] LABS: URINE APPEARANCE CLEAR (CLEAR); URINE COLOR YELLOW (YELLOW)
[2019-01-31] MEDS ORDERED: Bupivacaine 0.5% 50 ML IJ ONE ×2 (07:30→11:17)
[2019-01-31] MEDS ORDERED: Lidocaine 1% w Epi 1:100,000 Inj ONE (07:30)
[2019-01-31 07:33] LABS: URINE AMORPHOUS SEDIMENT FEW /hpf; URINE BACTERIA MOD /hpf; URINE FINE GRANULAR CAST 0 - 2 /hpf; URINE HYALINE CAST 0 - 2 /hpf
[2019-01-31] MEDS ORDERED: Propofol 10 mg/ml Inj (20 ML) ONE (08:46)
[2019-01-31] MEDS ORDERED: Succinylcholine 200 mg/10 ml Inj IV ONE (08:52)
[2019-01-31] MEDS ORDERED: Rocuronium 10 mg/ml (5 ml) ONE (08:56)
[2019-01-31] MEDS ORDERED: Neostigmine Methylsulfate 3mg/3ml Syringe IV ONE (11:15)
[2019-01-31] MEDS ORDERED: Glycopyrrolate 0.2 mg/ml (2ml vial) ONE (11:16)
--- NOTE | 2019-01-31 11:46 | PCM.SURG1 ---
Surgeon's Initial Post Op Note - Surgeon's Notes Surgeon: Aleisha Stewart MD Chair Car Attendant: Sheree Mercedes PA-C Type of Anesthesia: General Endo Anesthesia Administered By: Dr. Snider Pre-Operative Diagnosis: right shoulder rotator cuff tear Operative Findings: see full note Post-Operative Diagnosis: same Operation Performed: right shoulder athroscopy with cuff repair, subacromial decompression and removal of hardware Specimen/Specimens Removed: deep hardware Estimated Blood Loss: EBL {In ML}: 5 Blood Products Given: N/A Drains Used: No Drains Post-Op Condition: Fair Date of Surgery/Procedure: 01/31/19 Time of Surgery/Procedure: 11:46
[2019-01-31] MEDS ORDERED: Oxycodone/Acetaminophen 5/325 mg Tab PO PRN (11:47)
--- NOTE | 2019-01-31 12:02 | CP.PCM.PN ---
Subjective - Date & Time of Evaluation Date of Evaluation: 01/31/19 Time of Evaluation: 12:00 - Subjective Subjective: [place] ENGINEERING DIRECTOR reviewed 01/31/19. No documented narcotics listed. Patient given Percocet 5/325mg #40. Risks benefits and side effects discussed with patient. Patient states understanding Objective - Vital Signs/Intake and Output Vital Signs (last 24 hours): Temp Pulse Resp BP Pulse Ox 98.1 F 67 18 137/76 99 01/31/19 07:00 01/31/19 07:00 01/31/19 07:00 01/31/19 07:00 01/31/19 07:00 Intake and Output: 01/31/19 01/31/19 06:59 18:59 Intake Total 0 Balance 0 - Medications Medications: Current Medications Oxycodone/Acetaminophen (Percocet 5/325 Mg Tab) 2 tab PO Q4H PRN PRN Reason: Pain, severe (8-10) Stop: 02/03/19 11:48 - Labs Labs: PT 11.0 SECONDS (9.4-12.5) 01/31/19 06:35 INR 0.97 01/31/19 06:35 APTT 34.6 Seconds (26.9-38.3) 01/31/19 06:35
[2019-01-31] MEDS: Morphine 2 mg/ml ISec IVP PRN ×2 (12:15→12:30)
[2019-01-31] MEDS ORDERED: Lactated Ringer's 1,000 ML IV SCH (12:15)
[2019-01-31] MEDS ORDERED: Morphine 4 mg/ml ISec ONE ×2 (12:18→12:35)
[2019-01-31] MEDS: HYDROmorphone 0.5 mg/0.5 ml ISec IVP PRN ×2 (12:49→13:36)
[2019-01-31] MEDS ORDERED: HYDROmorphone 0.5 mg/0.5 ml ISec ONE ×2 (12:53→13:36)
[2019-01-31] MEDS ORDERED: Bupivacaine 0.25% Inj(30mL) ONE ×2 (13:05)
[2019-01-31 18:33] VITALS: O2SAT 94
--- NOTE | 2019-01-31 21:58 | OP ---
PROCEDURE DATE: 01/31/2019 PREOPERATIVE DIAGNOSES: Right shoulder symptomatic hardware and right shoulder rotator cuff tear and impingement. POSTOPERATIVE DIAGNOSES: Right shoulder symptomatic hardware and right shoulder rotator cuff tear and impingement. PROCEDURE: Right shoulder arthroscopy with arthroscopic cuff repair, removal of hardware deep and subacromial decompression. SURGEON: MD Dr. Terry Blevins was assisted by Jennifer Mercedes, the physician print shop assistant. Ms. Mercedes was scrubbed and present throughout the entire case and assisted in patient positioning, manipulation of the camera during the repair as well as closure. ANESTHESIA: General. COMPLICATIONS: None. ESTIMATED BLOOD LOSS: 10 mL. INDICATIONS FOR PROCEDURE: This is a 78-year-old female who many years ago underwent a right shoulder mini open rotator cuff tear. The patient had complaints of progressive pain with range of motion. Physical examination consistent with pain, weakness, resisted abduction, positive Garcia sign. Radiographic and CAT scan of the shoulder consistent with what looked like a protruding metal anchor out of the humeral head as well as a full-thickness rotator cuff tear. Recommendations were for a right shoulder arthroscopic removal of the prior implant and arthroscopic repair of the tendon. The risks, benefits and alternatives of the procedure were discussed with the patient, and informed consent was obtained. DESCRIPTION OF PROCEDURE: After surgical site was signed and verified in the preoperative holding area, the patient was taken to the operating room and placed supine on the operating room table. After administration of general anesthesia, the patient was positioned in lateral decubitus position with the right shoulder up towards the ceiling. Care was taken to make sure all bony prominences and nerves were well padded and protected. The patient received 2 g of Ancef IV. Venodyne boots were placed on bilateral lower extremities, and the right upper extremity was prepped and draped in the usual sterile fashion. The right upper extremity was positioned in the arthroscopic arm sanz with 10-pound retraction. The bony landmarks were identified about the right shoulder, and all portal sites were injected with a total of 10 mL of 1% lidocaine with epinephrine. Posterior arthroscopy portal was established. The arthroscope was inserted into the glenohumeral joint. The chondral surface of the glenoid and humeral head was noted to have grade II changes. The long head of the biceps tendon was gone consistent with a prior tear. The patient was noted to have multiple small loose bodies, which appeared to be small pieces of cartilage and through an anterior portal, these were removed using a full radius shaver. Anterior labrum appeared to be significantly frayed and deficient, and this was debrided using a full radius shaver. Inferior labrum appeared to be intact. Posterior labrum had some fraying, but otherwise appeared to be intact. The subscapularis was identified and no obvious full-thickness tear was appreciated. Supraspinatus was visualized and the anchor from the prior repair was noted to be again protruding out of the humeral head, and there appeared to be a full-thickness defect around the adjacent tendon tissue where the metal anchor previously was. At this point through the posterior portal, the arthroscope was inserted into the subacromial space. Using a full radius shaver, area around the anchor was debrided to allow for better access and using appropriate sized wrench, the metal anchor was removed. At this point, the tear was debrided and appeared to have a medium-sized crescent type tear. The decision was made to repair by first placing two margin convergence sutures in the anterior and posterior portions of the tendon and tying them and then inserting a [employer] double loaded anchor and passing both anchors in a mattress-like fashion and then tying them down. Once this was done, this provided essentially full coverage. At this point, the arm was taken through range of motion. No evidence of any impingement was appreciated. All the instruments were removed. All portal sites were closed using interrupted 2-0 Vicryl suture and 3-0 nylon. A sterile dressing was applied, and a shoulder immobilizer was placed. The patient was awakened from anesthesia and taken to the recovery room in stable condition. Greg Stewart MD
[2019-01-31 22:22] VITALS: BP 137/74; PULSE 78; RESP 20; TEMP 97.5
== END 2019-02-01 15:04 | disposition home or self-care (01) ==
LOC: SDS 06:21 → 5RSO 19:48 → SDS 02-01 15:04
PROVIDERS: ATTEND Orthopaedic Surgery
DX: M75.101 Unspecified rotator cuff tear or rupture of right shoulder, not specified as traumatic (principal); I10 Essential (primary) hypertension; I25.10 Atherosclerotic heart disease of native coronary artery without angina pectoris; Z86.73 Personal history of transient ischemic attack (TIA), and cerebral infarction without residual deficits; Z90.81 Acquired absence of spleen; Z90.2 Acquired absence of lung [part of]; Z88.8 Allergy status to other drugs, medicaments and biological substances
CPT/HCPCS: 29819; 29822; 29827; 36415; 81001; 82306; 82948; 85610; 85730; J0171; J0330; J0690; J1100; J1170; J2270 ×2; J2405; J2704; J2710; J2765; J3010; J7120

== ENCOUNTER 2019-02-20 14:58 | Outpatient (CLI) | payer MEDICARE, OTHER | END 2019-02-20 14:59 | disposition home or self-care (01) | LOC: RAD 14:58 ==